=== PATIENT | female | born 2000 | race Two or more races ===

== ENCOUNTER → 2020-03-21 07:55 | Outpatient (BNVA) | payer OTHER, SELFPAY | PROVIDERS: Visit Provider Advanced Practice Midwife | DX: Z34.80 Encounter for supervision of other normal pregnancy, unspecified trimester (principal) | CPT/HCPCS: 81025; 99212 ==

== ENCOUNTER 2020-04-11 11:09 | Emergency (ER) | payer OTHER, SELFPAY ==
[2020-04-11 11:17] VITALS: BP 133/78; PULSE 100; RESP 18; TEMP 36.9; O2SAT 98; BMI 18.8
--- NOTE | 2020-04-11 12:23 | ED.ABDPAIN ---
HPI - Abdominal Pain General Chief Complaint: Abdominal Pain <Lon Paniagua NP - Last Filed: 04/13/20 08:12> Stated Complaint: rt side abd pain, <Lon Paniagua NP - Last Filed: 04/13/20 08:12> Time Seen by Provider: 04/11/20 12:16 <Lon Paniagua NP - Last Filed: 04/13/20 08:12> Source: patient <Lon Paniagua NP - Last Filed: 04/13/20 08:12> Mode of arrival: ambulatory <Lon Paniagua NP - Last Filed: 04/13/20 08:12> Limitations: no limitations <Lon Paniagua NP - Last Filed: 04/13/20 08:12> History of Present Illness HPI narrative: This is a 19-year-old female who is a A1 who is currently about 7 weeks gestation she has a history of HSV type 2 who is being followed by her OBGYN team here presents with complaint of right lower pelvic pain for past several days. Pain is described as cramping like discomfort in the pelvic area and states she was to make sure everything is okay with the new as she has a history of miscarriage and she is worried about that. She denies any vaginal discharge or rash, bleeding, nausea vomiting or diarrhea. <Lon Paniagua NP - Last Filed: 04/13/20 08:12> MD elicited complaint: abdominal pain <Lon Paniagua NP - Last Filed: 04/13/20 08:12> Pertinent past history: none <Lon Paniagua NP - Last Filed: 04/13/20 08:12> Onset (ago): day(s) <Lon Paniagua NP - Last Filed: 04/13/20 08:12> Pain Consistency: intermittent <Lon Paniagua NP - Last Filed: 04/13/20 08:12> Location: pelvis <Lon Paniagua NP - Last Filed: 04/13/20 08:12> Severity: mild <Lon Paniagua NP - Last Filed: 04/13/20 08:12> Quality: cramping <Lon Paniagua NP - Last Filed: 04/13/20 08:12> Radiation: none <Lon Paniagua NP - Last Filed: 04/13/20 08:12> Relieving factors: nothing <Lon Paniagua NP - Last Filed: 04/13/20 08:12> Associated symptoms: denies other symptoms <Lon Paniagua NP - Last Filed: 04/13/20 08:12> Related Data Patient : Yes <ARIEL Beckwith Last Filed: 04/13/20 08:12> Home Medications: Previous Rx's Medication Instructions Recorded valacyclovir 500 mg tablet 1,000 mg PO BID #60 tab 02/07/20 vits no.130-ferrous fum 1 tab PO DAILY #30 tab 03/21/20 27 mg iron-folic acid 800 mcg tablet <Lon Paniagua NP - Last Filed: 04/13/20 08:12> Allergies/Adverse Reactions: Allergies Allergy/AdvReac Type Severity Reaction Status Date / Time merced [MERCED] Allergy Unknown ANGIOEDEMA Verified 04/18/20 10:14 pollen extracts [POLLEN] Allergy Unknown ITCHY EYES Verified 04/18/20 10:14 SEAFOOD Allergy Unknown ANAPHYLAXIS Uncoded 04/18/20 10:14 <Lon Paniagua NP - Last Filed: 04/13/20 08:12> Review of Systems Review of Systems Constitutional: No Weight loss, No Fever, No Chills, No Night Sweats, No Fatigue, No Malaise ENT/Mouth: No Hearing loss, No Ear Pain, No Nasal Congestion, No Sinus Pain, No Hoarseness, No sore throat, No Rhinorrhea, No Swallowing Difficulty Eyes: No Eye Pain, No Swelling, No Redness, No Foreign Body, No Discharge, No Vision Changes Cardiovascular: No Chest Pain, No SOB, No Dyspnea on Exertion, No Orthopnea, No Edema, No Palpitations Respiratory: No Cough, No Sputum, No Wheezing, No Smoke Exposure, No Dyspnea Gastrointestinal: No Nausea, No Vomiting, No Diarrhea, No Constipation, + abdominal Pain as noted in HPI , No Hematochezia, No Melena Genitourinary: no irregular bleeding, No Dysuria, No Urinary Frequency, No Hematuria, No Urinary Incontinence, No Urgency, No Flank Pain, No Urinary Flow Changes, No Hesitancy, states no concern for STI Musculoskeletal: No joint pain, No Myalgias, No Joint Swelling Skin: No Skin Lesions, No rash Neuro: No Weakness, No Numbness, No Paresthesias, No Loss of Consciousness, No Dizziness, No Headache Psych: No Social Issues Heme/Lymph: No Bruising, No Bleeding,No Lymphadenopathy Endocrine: No Polyuria, No Polydipsia, No Temperature Intolerance <Lon Paniagua NP - Last Filed: 04/13/20 08:12> Yes all other systems are reviewed and are negative <Lon Paniagua NP - Last Filed: 04/13/20 08:12> Physical Exam Vital Signs: Vital Signs: Last Vital Signs Temp 98.9 F 04/11/20 14:16 Pulse 87 04/11/20 14:16 Resp 16 04/11/20 14:16 BP 119/66 04/11/20 14:16 Pulse Ox 100 04/11/20 14:16 Body Mass Index 18.8 Reviewed <Lon Paniagua NP - Last Filed: 04/13/20 08:12> Vital Signs: Last Vital Signs Temp 98.9 F 04/11/20 14:16 Pulse 87 04/11/20 14:16 Resp 16 04/11/20 14:16 BP 119/66 04/11/20 14:16 Pulse Ox 100 04/11/20 14:16 Body Mass Index 18.8 <Chele Cates MD - Last Filed: 04/20/20 00:11> Const: General: cooperative and healthy appearing; No acute distress or intoxicated appearing <Lon Paniagua NP - Last Filed: 04/13/20 08:12> Nutritional Appearance: average body habitus <Lon Paniagua NP - Last Filed: 04/13/20 08:12> Orientation/consciousness: patient oriented x3 <Lon Paniagua NP - Last Filed: 04/13/20 08:12> HENMT: Head: Yes normal to inspection <Lon Paniagua NP - Last Filed: 04/13/20 08:12> Ears: hearing grossly normal bilaterally <Lon Paniagua NP - Last Filed: 04/13/20 08:12> Eyes: General: appearance normal, both eyes and all related structures <Lon Paniagua NP - Last Filed: 04/13/20 08:12> Visual Holbrook: normal visual holbrook by confrontation <Lon Paniagua NP - Last Filed: 04/13/20 08:12> Neck: Neck: Yes normal visual inspection, No positive Brudzinski's sign, No positive Kernig's sign and No tender <[facility] Paniagua, - Last Filed: 04/13/20 08:12> Thyroid: Thyroid normal <[facility] Paniagua, [facility] Last Filed: 04/13/20 08:12> Chest: Chest palpation & inspection: normal inspection of the chest <[facility] Arcelia - Last Filed: 04/13/20 08:12> Resp: Effort & Inspection: normal respiratory effort <[facility] Arcelia [facility] Last Filed: 04/13/20 08:12> Auscultation: clear to auscultation bilaterally <[facility] Arcelia - Last Filed: 04/13/20 08:12> Cardio: Jugular venous distension: no JVD <[facility] Arcelia [facility] Last Filed: 04/13/20 08:12> Rhythm: regular rhythm <[facility] Arcelia [facility] Last Filed: 04/13/20 08:12> Heart sounds: S1 normal heart sound present and S2 normal heart sound present <[facility] Arcelia - Last Filed: 04/13/20 08:12> GI: Inspection: Yes normal to inspection <[facility] Arcelia [facility] Last Filed: 04/13/20 08:12> Percussion: Yes normal to percussion <[facility] Arcelia - Last Filed: 04/13/20 08:12> Auscultation: normal bowel sounds <[facility] Arcelia - Last Filed: 04/13/20 08:12> : General: Yes no CVA tenderness <[facility] Arcelia - Last Filed: 04/13/20 08:12> Back/Spine/Pelvis: Back: no CVA tenderness <[facility] Arcelia - Last Filed: 04/13/20 08:12> Skin: General skin exam: no rashes or lesions noted <[facility] - Last Filed: 04/13/20 08:12> Neuro: General: patient oriented x3 <[facility] [place] - Last Filed: 04/13/20 08:12> Extrem: General: Yes normal to inspection <Lonkishor Paniagua NP - Last Filed: 04/13/20 08:12> Course Course Course Narrative: Resting comfortably here no complaints of pain or discomfort. HCG quant and ultrasound in correlation. Rh positive. No vaginal bleeding. She has an appointment coming up with her OBGYN team tomorrow. Educated on early discomfort, threatened miscarriage, need for follow-up, return instructions/precautions clear provided she verbalized understanding. Feels comfortable for discharge. Stable for discharge. <Lon Paniagua NP - Last Filed: 04/13/20 08:12> I have reviewed the chart <Chele Cates MD - Last Filed: 04/20/20 00:11> MDM - Abdominal Pain Differential Diagnosis Differential diagnosis: Likely abdominal pain and ovarian cyst; Unlikely aortic dissection, acute appendicitis, bowel perforation, calculus of kidney, constipation, diverticulitis, endometriosis, gastroenteritis, gastritis, mesenteric ischemia, pancreatitis, peptic ulcer disease, renal colic and small bowel obstruction <Lon Paniagua NP - Last Filed: 04/13/20 08:12> Differential diagnosis narrative:: Also considered ectopic . <Lon Paniagua NP - Last Filed: 04/13/20 08:12> Medical Records Attestation: I reviewed the patient's medical records. <Lon Paniagua NP - Last Filed: 04/13/20 08:12> Lab Data Attestation: I reviewed the patient's lab results. <Lon Paniagua NP - Last Filed: 04/13/20 08:12> Result diagrams: : 04/11/20 12:35 04/11/20 12:35 <Lon Paniagua NP - Last Filed: 04/13/20 08:12> Labs: Lab Results 04/11/20 04/11/20 04/11/20 Range/Units 12:31 12:35 12:35 WBC (4.8-10.8) X10*3/uL RBC (4.20-5.50) X10*6/uL Hgb (12.0-16.0) g/dl Hct (37-47) % MCV (80-98) fL MCH (27.0-33.0) pg MCHC (31.0-35.0) g/dl RDW (11.0-16.0) % Plt Count (160-400) X10*3/uL MPV (9.4-12.3) fL Immature Gran % (Auto) (0.0-0.4) % Neut % (Auto) (45-73) % Lymph % (Auto) (20-40) % [place] % (Auto) (2-11) % Eos % (Auto) (0-4) % Baso % (Auto) (0-2) % Lymph # (Auto) (1.2-4.9) X10*3/uL [place] # (Auto) (0.1-1.2) X10*3/uL Eos # (Auto) (0.0-0.4) X10*3/uL Baso # (Auto) (0.0-0.2) X10*3/uL Abs Immat Gran (auto) (0.00-0.03) X10*3/uL Absolute Neuts (auto) (2.0-8.3) X10*3/uL Absolute Nucleated RBC (0.0-0.012) X10*3/uL Nucleated RBC % (auto) (0.0-0.2) /100WBC Sodium 137 (135-145) mmol/L Potassium 3.8 (3.3-5.1) mmol/l Chloride 105 (96-108) mmol/L Carbon Dioxide 23 (22-29) mmol/L Anion Gap 13 (12-20) BUN 7 L (9-16) mg/dL Creatinine 0.70 (0.5-1.4) mg/dL Estim Creat Clear Calc 101.7 Estimated GFR > 60 Random Glucose 85 (60-115) mg/dL Calcium 9.3 (8.4-10.2) mg/dL Total Bilirubin 0.4 (0.0-1.0) mg/dL AST 13 (5-31) U/L ALT 9 (0-31) U/L Alkaline Phosphatase 43 (39-117) U/L Total Protein 7.0 (6.5-8.0) g/dL Albumin 4.6 (3.5-5.0) g/dL Beta HCG, Quant 869242 mIU/mL Urine Color YELLOW Urine Appearance HAZY Urine pH 7.0 (5.0-8.0) Ur Specific [place] 1.025 (1.005-1.025) Urine Protein NEG (NEG-TRACE) MG/DL Urine Glucose (UA) NEG (NEG) MG/DL Urine Ketones 5 (NEG) MG/DL Urine Blood NEG (NEG) Urine Nitrite NEG (NEG) Ur Leukocyte Esterase NEG (NEG) Urine RBC 0 (0) /HPF Urine WBC 0 (0-4) /HPF Ur Squamous Epith Cells TRACE /LPF Calcium Carbonate Cryst TRACE /LPF Urine Bacteria NONE /LPF Urine Mucus TRACE /LPF Urine Test POSITIVE H (NEGATIVE) Blood Type A Positive 04/11/20 Range/Units 12:35 WBC 8.5 (4.8-10.8) X10*3/uL RBC 4.43 (4.20-5.50) X10*6/uL Hgb 12.4 (12.0-16.0) g/dl Hct 38.4 (37-47) % MCV 86.7 (80-98) fL MCH 28.0 (27.0-33.0) pg MCHC 32.3 (31.0-35.0) g/dl RDW 12.1 (11.0-16.0) % Plt Count 231 (160-400) X10*3/uL MPV 10.0 (9.4-12.3) fL Immature Gran % (Auto) 0.1 (0.0-0.4) % Neut % (Auto) 73.8 H (45-73) % Lymph % (Auto) 18.8 L (20-40) % [place] % (Auto) 6.6 (2-11) % Eos % (Auto) 0.6 (0-4) % Baso % (Auto) 0.1 (0-2) % Lymph # (Auto) 1.6 (1.2-4.9) X10*3/uL [place] # (Auto) 0.6 (0.1-1.2) X10*3/uL Eos # (Auto) 0.1 (0.0-0.4) X10*3/uL Baso # (Auto) 0.0 (0.0-0.2) X10*3/uL Abs Immat Gran (auto) 0.01 (0.00-0.03) X10*3/uL Absolute Neuts (auto) 6.2 (2.0-8.3) X10*3/uL Absolute Nucleated RBC 0.000 (0.0-0.012) X10*3/uL Nucleated RBC % (auto) 0.0 (0.0-0.2) /100WBC Sodium (135-145) mmol/L Potassium (3.3-5.1) mmol/l Chloride (96-108) mmol/L Carbon Dioxide (22-29) mmol/L Anion Gap (12-20) BUN (9-16) mg/dL Creatinine (0.5-1.4) mg/dL Estim Creat Clear Calc Estimated GFR Random Glucose (60-115) mg/dL Calcium (8.4-10.2) mg/dL Total Bilirubin (0.0-1.0) mg/dL AST (5-31) U/L ALT (0-31) U/L Alkaline Phosphatase (39-117) U/L Total Protein (6.5-8.0) g/dL Albumin (3.5-5.0) g/dL Beta HCG, Quant mIU/mL Urine Color Urine Appearance Urine pH (5.0-8.0) Ur Specific [place] (1.005-1.025) Urine Protein (NEG-TRACE) MG/DL Urine Glucose (UA) (NEG) MG/DL Urine Ketones (NEG) MG/DL Urine Blood (NEG) Urine Nitrite (NEG) Ur Leukocyte Esterase (NEG) Urine RBC (0) /HPF Urine WBC (0-4) /HPF Ur Squamous Epith Cells /LPF Calcium Carbonate Cryst /LPF Urine Bacteria /LPF Urine Mucus /LPF Urine Test (NEGATIVE) Blood Type <Lon Paniagua NP - Last Filed: 04/13/20 08:12> Lab Results 04/11/20 04/11/20 04/11/20 Range/Units 12:31 12:35 12:35 WBC (4.8-10.8) X10*3/uL RBC (4.20-5.50) X10*6/uL Hgb (12.0-16.0) g/dl Hct (37-47) % MCV (80-98) fL MCH (27.0-33.0) pg MCHC (31.0-35.0) g/dl RDW (11.0-16.0) % Plt Count (160-400) X10*3/uL MPV (9.4-12.3) fL Immature Gran % (Auto) (0.0-0.4) % Neut % (Auto) (45-73) % Lymph % (Auto) (20-40) % [place] % (Auto) (2-11) % Eos % (Auto) (0-4) % Baso % (Auto) (0-2) % Lymph # (Auto) (1.2-4.9) X10*3/uL [place] # (Auto) (0.1-1.2) X10*3/uL Eos # (Auto) (0.0-0.4) X10*3/uL Baso # (Auto) (0.0-0.2) X10*3/uL Abs Immat Gran (auto) (0.00-0.03) X10*3/uL Absolute Neuts (auto) (2.0-8.3) X10*3/uL Absolute Nucleated RBC (0.0-0.012) X10*3/uL Nucleated RBC % (auto) (0.0-0.2) /100WBC Sodium 137 (135-145) mmol/L Potassium 3.8 (3.3-5.1) mmol/l Chloride 105 (96-108) mmol/L Carbon Dioxide 23 (22-29) mmol/L Anion Gap 13 (12-20) BUN 7 L (9-16) mg/dL Creatinine 0.70 (0.5-1.4) mg/dL Estim Creat Clear Calc 101.7 Estimated GFR > 60 Random Glucose 85 (60-115) mg/dL Calcium 9.3 (8.4-10.2) mg/dL Total Bilirubin 0.4 (0.0-1.0) mg/dL AST 13 (5-31) U/L ALT 9 (0-31) U/L Alkaline Phosphatase 43 (39-117) U/L Total Protein 7.0 (6.5-8.0) g/dL Albumin 4.6 (3.5-5.0) g/dL Beta HCG, Quant 554974 mIU/mL Urine Color YELLOW Urine Appearance HAZY Urine pH 7.0 (5.0-8.0) Ur Specific [place] 1.025 (1.005-1.025) Urine Protein NEG (NEG-TRACE) MG/DL Urine Glucose (UA) NEG (NEG) MG/DL Urine Ketones 5 (NEG) MG/DL Urine Blood NEG (NEG) Urine Nitrite NEG (NEG) Ur Leukocyte Esterase NEG (NEG) Urine RBC 0 (0) /HPF Urine WBC 0 (0-4) /HPF Ur Squamous Epith Cells TRACE /LPF Calcium Carbonate Cryst TRACE /LPF Urine Bacteria NONE /LPF Urine Mucus TRACE /LPF Urine Test POSITIVE H (NEGATIVE) Blood Type A Positive 04/11/20 Range/Units 12:35 WBC 8.5 (4.8-10.8) X10*3/uL RBC 4.43 (4.20-5.50) X10*6/uL Hgb 12.4 (12.0-16.0) g/dl Hct 38.4 (37-47) % MCV 86.7 (80-98) fL MCH 28.0 (27.0-33.0) pg MCHC 32.3 (31.0-35.0) g/dl RDW 12.1 (11.0-16.0) % Plt Count 231 (160-400) X10*3/uL MPV 10.0 (9.4-12.3) fL Immature Gran % (Auto) 0.1 (0.0-0.4) % Neut % (Auto) 73.8 H (45-73) % Lymph % (Auto) 18.8 L (20-40) % [place] % (Auto) 6.6 (2-11) % Eos % (Auto) 0.6 (0-4) % Baso % (Auto) 0.1 (0-2) % Lymph # (Auto) 1.6 (1.2-4.9) X10*3/uL [place] # (Auto) 0.6 (0.1-1.2) X10*3/uL Eos # (Auto) 0.1 (0.0-0.4) X10*3/uL Baso # (Auto) 0.0 (0.0-0.2) X10*3/uL Abs Immat Gran (auto) 0.01 (0.00-0.03) X10*3/uL Absolute Neuts (auto) 6.2 (2.0-8.3) X10*3/uL Absolute Nucleated RBC 0.000 (0.0-0.012) X10*3/uL Nucleated RBC % (auto) 0.0 (0.0-0.2) /100WBC Sodium (135-145) mmol/L Potassium (3.3-5.1) mmol/l Chloride (96-108) mmol/L Carbon Dioxide (22-29) mmol/L Anion Gap (12-20) BUN (9-16) mg/dL Creatinine (0.5-1.4) mg/dL Estim Creat Clear Calc Estimated GFR Random Glucose (60-115) mg/dL Calcium (8.4-10.2) mg/dL Total Bilirubin (0.0-1.0) mg/dL AST (5-31) U/L ALT (0-31) U/L Alkaline Phosphatase (39-117) U/L Total Protein (6.5-8.0) g/dL Albumin (3.5-5.0) g/dL Beta HCG, Quant mIU/mL Urine Color Urine Appearance Urine pH (5.0-8.0) Ur Specific [place] (1.005-1.025) Urine Protein (NEG-TRACE) MG/DL Urine Glucose (UA) (NEG) MG/DL Urine Ketones (NEG) MG/DL Urine Blood (NEG) Urine Nitrite (NEG) Ur Leukocyte Esterase (NEG) Urine RBC (0) /HPF Urine WBC (0-4) /HPF Ur Squamous Epith Cells /LPF Calcium Carbonate Cryst /LPF Urine Bacteria /LPF Urine Mucus /LPF Urine Test (NEGATIVE) Blood Type <Chele Cates MD - Last Filed: 04/20/20 00:11> Imaging Data ultrasound: Radiologist's impression: [address] [address] Ultrasound Report Signed Patient: Colleen Mart [facility]#: [id number] : 2000Acct:[id number] Age/Sex: 19 / FADM Date: 04/11/20 Loc: .ED Attending Dr: Ordering Physician: Lon Paniagua [employer] Date of Service: 04/11/20 Procedure(s): US OB <= 14 weeks fetus Accession Number(s): [id number] cc: Lon Paniagua NP~ EXAMINATION: ULTRASOUND OB LESS THAN 14 WEEKS CLINICAL INFORMATION: Right pelvic pain. Positive . COMPARISON: None TECHNIQUE: Routine transabdominal ultrasound the pelvis is performed. FINDINGS: There is intrauterine solitary just sac and a pole visualized. Also visualized is a yolk sac and a heart rate of 1 56 bpm. The crown-rump length measures 1.27 cm corresponding to 7 weeks 4 days and [facility] of 11/24/2020. The right ovary measures 3.3 x 1.9 x 2.0 cm and appears unremarkable. Left ovary measures 2.8 x 1.4 x 2.1 cm and appears unremarkable. US/US OB <= 14 weeks fetus IMPRESSION: Single live intrauterine fetus within ultrasound gestational age of 7 weeks 4 days. Dictated By:SERGE REAL MD Signed By:<Electronically signed by SERGE REAL MD in OV>04/11/20 1335 DD/ 1223 TD/TT: Icing Maker: MSM <Lon Paniagua NP - Last Filed: 04/13/20 08:12> Discharge Plan Discharge Clinical Impression: <Lon Paniagua NP - Last Filed: 04/13/20 08:12> Patient Disposition: Home, Self-Care <Lon Paniagua NP - Last Filed: 04/13/20 08:12> Instructions: Abdominal Pain in (ED) <Lon Paniagua NP - Last Filed: 04/13/20 08:12> Additional Instructions: Stable Your ultrasound shows single at 7 weeks 4 days as expected Return if any concerns or worsening symptoms otherwise follow-up with your OBGYN team as scheduled tomorrow Thank you <Lon Paniagua NP - Last Filed: 04/13/20 08:12> Prescriptions: No Action Vitamin 27 mg iron- 800 mcg tablet 1 tab PO DAILY Qty: 30 RF: 12 valacyclovir [Valtrex] 500 mg tablet 1,000 mg PO BID Qty: 60 RF: 1 <Lon Paniagua NP - Last Filed: 04/13/20 08:12> Referrals: Magnus Serra MD [Physician] - 1 day <Lon Paniagua NP - Last Filed: 04/13/20 08:12> Interventions: ED Discharge Assessment Last Done: 04/11/20 14:40 <Lon Paniagua NP - Last Filed: 04/13/20 08:12> Discharge Date/Time: 04/11/20 14:40 <Lon Paniagua NP - Last Filed: 04/13/20 08:12> [facility] Past Medical History Medical History: Medical History History of asthma HSV-2 infection <Lon Paniagua NP - Last Filed: 04/13/20 08:12> Family History Family History: Family History (Updated 04/18/20 @ 11:07 by Darling De Los Santos LPN) Maternal Grandmother CVD (cardiovascular disease) Maternal Grandfather History of heart attack Paternal Grandmother No problems noted. Maternal Uncle History of colon cancer <Lon Paniagua NP - Last Filed: 04/13/20 08:12> Social History Social History: Social History (Updated 04/18/20 @ 10:18 by Darling De Los Santos LPN) Household Members: Significant Other and Children Alcohol intake: never Smoking Status: Never smoker Sexual orientation: Straight/Heterosexual Gender identity: female <Lon Paniagua NP - Last Filed: 04/13/20 08:12>
[2020-04-11 12:41] LABS: MANUAL DIFF FLAG NO
[2020-04-11 12:43] LABS: Basophils Percent Auto 0.1 % (0-2); Eosinophils Absolute Auto 0.1 X10*3/uL (0.0-0.4); Eosinophils Percent Auto 0.6 % (0-4); Hematocrit 38.4 % (37-47); Hemoglobin 12.4 g/dl (12.0-16.0); Imm Gran Abs Auto 0.01 X10*3/uL (0.00-0.03); Imm Gran Pct Auto 0.1 % (0.0-0.4); Lymphocytes Absolute Auto 1.6 X10*3/uL (1.2-4.9); Lymphocytes Percent Auto 18.8 % (20-40); Mean Corpuscular HGB Conc 32.3 g/dl (31.0-35.0); Mean Corpuscular Volume 86.7 fL (80-98); Monocytes Absolute Auto 0.6 X10*3/uL (0.1-1.2); Monocytes Percent Auto 6.6 % (2-11); Neutrophils Absolute Auto 6.2 X10*3/uL (2.0-8.3); Neutrophils Percent Auto 73.8 % (45-73); Platelet Count 231 X10*3/uL (160-400); Red Blood Count 4.43 X10*6/uL (4.20-5.50); Red Cell Distribution Width 12.1 % (11.0-16.0); White Blood Count 8.5 X10*3/uL (4.8-10.8)
[2020-04-11 12:45] LABS: Glucose Urine UA NEG (NEG); Leukocyte Esterase Urine NEG (NEG); Nitrite Urine NEG (NEG); Specific Gravity - Urine 1.025 (1.005-1.025); Urine Blood NEG (NEG); Urine Ketones 5 MG/DL (NEG); Urine Protein NEG (NEG-TRACE)
[2020-04-11 12:48] LABS: Appearance Urine HAZY; Color Urine YELLOW
[2020-04-11 12:49] LABS: UPreg QC Valid YES; Urine Pregnancy POSITIVE (NEGATIVE)
[2020-04-11 13:05] LABS: Calcium Carbonate Crystals Ur TRACE /LPF; Mucus Urine TRACE /LPF; RBC Urine 0 /HPF (0); Squamous Epithelial Cell Urine TRACE /LPF; WBC Urine 0 /HPF (0-4)
[2020-04-11 13:13] LABS: Alanine Aminotransferase 9 U/L (0-31); Albumin Level 4.6 g/dL (3.5-5.0); Alkaline Phosphatase 43 U/L (39-117); Anion Gap 13 (12-20); Aspartate Amino Transferase 13 U/L (5-31); Bilirubin Total 0.4 mg/dL (0.0-1.0); Blood Urea Nitrogen 7 mg/dL (9-16); Calcium 9.3 mg/dL (8.4-10.2); Carbon Dioxide 23 mmol/L (22-29); Chloride 105 mmol/L (96-108); Creatinine Clr Calc Pharmacy 101.7; Estimated Glomerular Filt Rate > 60; Glucose Random 85 mg/dL (60-115); Potassium 3.8 mmol/l (3.3-5.1); Sodium 137 mmol/L (135-145)
[2020-04-11 14:16] VITALS: BP 119/66; PULSE 87; RESP 16; TEMP 37.2; O2SAT 100
== END 2020-04-11 14:40 | disposition home or self-care (01) ==
PROVIDERS: Nurse Practitioner Primary Care; Emergency Provider Emergency Medicine; PCP Pediatrics
DX: O26.891 Other specified pregnancy related conditions, first trimester (principal); R10.9 Unspecified abdominal pain; Z3A.01 Less than 8 weeks gestation of pregnancy; O26.41 Herpes gestationis, first trimester; O26.21 Pregnancy care for patient with recurrent pregnancy loss, first trimester
CPT/HCPCS: 36415; 76801; 80053; 81001; 81025; 84702; 85025; 86900; 86901; 99284

== ENCOUNTER → 2020-04-18 10:12 | Outpatient (BNVA) | payer OTHER, SELFPAY | PROVIDERS: PCP Pediatrics; Visit Provider Advanced Practice Midwife | CPT/HCPCS: 99212 ==

== ENCOUNTER 2020-05-16 08:06 | Outpatient (REF) | payer OTHER, SELFPAY ==
[2020-05-16 11:38] LABS: Syphilis Screen Nonreactive (Nonreactive)
[2020-05-17 08:04] LABS: HBsAGNum1 0.24 S/CO (0.00-0.99); HIV AB/AG Nonreactive (Nonreactive); HIV Num 1 0.07 S/CO (0.00-0.99); Hepatitis B Surface Antigen Negative (Negative); ~Hepatitis C Antibody Nonreactive (Nonreactive)
[2020-05-17 08:32] LABS: Rubella IgG Antibody 4.52 Index; Varicella IgG Antibody >4000.00 index
[2020-05-17 09:38] LABS: BV Int Neg Control Negative (Negative); BV Int Pos Control Positive (Positive)
[2020-05-18 00:16] LABS: C. trachomatis RNA TMA NOT DETECTED (NOT DETECTED); N. gonorrhoeae RNA TMA NOT DETECTED (NOT DETECTED)
== END 2020-05-16 08:07 | disposition home or self-care (01) ==
LOC: HO.LAB 08:06
PROVIDERS: PCP Pediatrics; Visit Provider Advanced Practice Midwife
DX: O26.891 Other specified pregnancy related conditions, first trimester (principal); N89.8 Other specified noninflammatory disorders of vagina; Z3A.12 12 weeks gestation of pregnancy
CPT/HCPCS: 36415; 81003; 86762; 86780; 86787; 86803; 86850; 86900; 86901; 87340; 87389; 87480; 87491; 87510; 87591; 87660; 99212

== ENCOUNTER 2020-05-18 12:58 | Outpatient (REF) | payer OTHER, SELFPAY ==
--- NOTE | ~2020-05-18 | US_ITS ---
EXAMINATION: OBSTETRICAL ULTRASOUND, FIRST TRIMESTER HISTORY: 19-year-old at 12.6 weeks of gestation NT screening COMPARISON: 04/11/2020 TECHNIQUE: Real time transabdominal imaging with color and M-mode Doppler. FINDINGS: A single, live IUP CRL of 61 mm c/w 12.4wks is noted. Heart Rate: 156 beats per minute. Normal yolk sac seen. NT was 1.6.mm. NB Present The embryo appears sonographically wnl for this GA. Both maternal ovaries are seen and appear normal. GESTATIONAL AGE: 1. Established GA: 12.6 wks 2. GA from [facility]: 12.4 wks ESTIMATED DATE OF DELIVERY: 1. Established [facility]: 11/24/2020 2. [facility] from [facility]: 11/26/2020 US/US OB 1T nuc measure IMPRESSION: 1. A single live IUP 2. Size equals dates 3. NT of 1.6 mm MFM Consultation: I reviewed the ultrasound findings along with significance of NT measurement. The NT of less than 3mm is generally reassuring. However, the sensitivity for T21 detection is only 60%. I reviewed the availability of serum aneuploidy screening which includes cell-free DNA and placental protein based tests. I discussed the sensitivity, false-positive rate, and other limitations associated with each test. I also reviewed the availability of invasive diagnostic tests that are associated small but definite risk of miscarriage. We also reviewed the differences between screening tests and diagnostic tests. After our discussion, she opted for the First trimester screening that is based on cell-free DNA or non-invasive testing (NIPT). She has a 1-year-old child. That was uncomplicated. A follow up at 18 weeks for survey has been scheduled. Thank you very much for this referral. Majority of this visit was spent reviewing her care and counselling her in face to face time: Time spent 30 min.
[2020-05-18 14:55] LABS: Amphetamine Screen Urine Not Detected (Not Detect); Barbiturates, Urine Not Detected (Not Detect); Benzodiazepines Screen Urine Not Detected (Not Detect); Cannabinoid Screen Urine Not Detected (Not Detect); Cocaine Screen Urine Not Detected (Not Detect); Opiate Screen Urine Not Detected (Not Detect); Phencyclidine Screen Urine Not Detected (Not Detect)
== END 2020-05-18 12:59 | disposition home or self-care (01) ==
LOC: HO.US 12:58
PROVIDERS: Visit Provider Advanced Practice Midwife
DX: Z34.91 Encounter for supervision of normal pregnancy, unspecified, first trimester (principal); Z36.82 Encounter for antenatal screening for nuchal translucency
CPT/HCPCS: 76813; 80307; 87086

== ENCOUNTER → 2020-06-13 11:15 | Outpatient (BNVA) | payer OTHER, SELFPAY | PROVIDERS: PCP Pediatrics; Visit Provider Obstetrics & Gynecology | CPT/HCPCS: 99212 ==

== ENCOUNTER 2020-06-29 12:53 | Outpatient (REF) | payer OTHER, SELFPAY ==
--- NOTE | ~2020-06-29 | US_ITS ---
EXAMINATION: US OBSTETRICAL CLINICAL INFORMATION: 19-year-old at 18.6 weeks of GA Screening for anomalies COMPARISON: 05/18/2020 TECHNIQUE: Real-time transabdominal ultrasound was performed using C1-5 megahertz transducer. FINDINGS: A single, active, fetus is seen in vertex presentation. The placenta is anterior without previa, and the amniotic fluid volume is wnl. MEASUREMENTS: 1. Biparietal Diameter: 4.4 cm; 19.3 wks 2. Occipital Frontal Diameter: 5.8 cm 3. Head Circumference: 16.4 cm; 19.1 wks 4. Abdominal Circumference: 13.2 cm; 18.5 wks 5. Femur Length: 2.8 cm; 18.5 wks 6. Humerus Length: 2.8 cm; 18.6 wks 7. Tibia Length: 2.5 cm; 18.6 wks 8. Ulna Length: 2.5 cm; 19.0 wks 9. Lateral ventricle: 0.7 cm 10. Cerebellum: 1.9 cm; 19.3 wks 11. Cisterna Magna: 0.5 cm 12. Nuchal Fold: 4.0 mm 13. Heart Rate: 140 beats per minute Rt ovary: normal Lt ovary: normal Cervical length 4.0 cm on T/A. GESTATIONAL AGE: 1. Established GA: 18.6 wks 2. GA [facility]: 19.0 wks ESTIMATED DATE OF DELIVERY: 1. Established [facility]: 11/24/2020 2. [facility]: 11/23/2020 ANATOMY: The visualized anatomy includes but not limited to: 1. Cranium: Normal 2. Intracranial anatomy: cavum septum pellucidi, lateral ventricles, choroid plexus, cerebellum, posterior fossa, third and fourth ventricles. 3. face: orbits, lip/palate, profile, nasal bone 4. Heart: four-chamber view of the heart, ventricular septum, foramen ovale, pulmonary vein, left and right outflow tracts, three-vessel view, 3 vessel trachea view, aortic and ductal arches, situs.. 5. Diaphragm: Normal 6. Abdominal wall: Normal 7. Cord Insertion: Normal 8. Spine: Cervical, thoracic, lumbar, sacral. 9. Stomach: Normal size and shape 10. Right Kidney: Normal 11. Left Kidney: Normal 12. 3 vessel cord: Normal 13. Upper extremity: Open hands, fifth digit. 14. Lower extremity: Tibia, fibula, bilateral feet. 15. Bladder: Normal 16. Genitalia: Male, patient aware US/US OB /maternal detail IMPRESSION: 1. Single, living, intrauterine with appropriate biometry. 2. Normal survey DISCUSSION: I reviewed today's ultrasound findings. We discussed the limitations of ultrasound in diagnosing aneuploidy and other congenital abnormalities. I reviewed the differences between screening test and diagnostic test. Amniocentesis was discussed and declined. She was informed that the baseline incidence of congenital abnormalities is approximately 3-5%. Not all these conditions are diagnosable in utero. RECOMMENDATIONS: 1. f/u PRN Thank you for allowing me to participate in her care. Total time 20 minutes. The time spent was devoted to counseling the patient about the disease and diagnosis, coordinating care including reviewing her records, pertinent lab data and studies, as well as discussing diagnostic evaluation and workup, plan therapeutic interventions and future disposition of care. This includes any additional research needed to obtain further information in formulating the plan of care of this patient. This note was generated with a voice recognition program. Please excuse any errors which may have been overlooked during my review of this note. Sometimes these errors may affect the content or meaning of a given sentence.
== END 2020-06-29 12:54 | disposition home or self-care (01) ==
LOC: HO.US 12:53
PROVIDERS: Visit Provider Obstetrics & Gynecology
DX: Z34.82 Encounter for supervision of other normal pregnancy, second trimester (principal); Z36.3 Encounter for antenatal screening for malformations
CPT/HCPCS: 76811

== ENCOUNTER → 2020-07-11 14:10 | Outpatient (BNVA) | payer OTHER, SELFPAY | PROVIDERS: PCP Pediatrics; Visit Provider Obstetrics & Gynecology | DX: Z34.92 Encounter for supervision of normal pregnancy, unspecified, second trimester (principal); Z3A.20 20 weeks gestation of pregnancy | CPT/HCPCS: 99212 ==

== ENCOUNTER → 2020-08-08 13:35 | Outpatient (BNVA) | payer OTHER, SELFPAY | PROVIDERS: Visit Provider Advanced Practice Midwife | DX: Z34.92 Encounter for supervision of normal pregnancy, unspecified, second trimester (principal); Z3A.24 24 weeks gestation of pregnancy | CPT/HCPCS: 81003; 99212 ==

== ENCOUNTER → 2020-09-05 14:48 | Outpatient (BNVA) | payer OTHER, SELFPAY | PROVIDERS: Visit Provider Advanced Practice Midwife | DX: Z34.93 Encounter for supervision of normal pregnancy, unspecified, third trimester (principal); Z3A.28 28 weeks gestation of pregnancy | CPT/HCPCS: 81003; 99212 ==

== ENCOUNTER 2020-09-17 15:03 | Outpatient (REF) | payer OTHER, SELFPAY ==
[2020-09-17 17:57] LABS: Hematocrit 33.4 % (37-47); Hemoglobin 10.5 g/dl (12.0-16.0); Mean Corpuscular HGB Conc 31.4 g/dl (31.0-35.0); Mean Corpuscular Hemoglobin 27.9 pg (27.0-33.0); Mean Corpuscular Volume 88.8 fL (80-98); Mean Platelet Volume 10.6 fL (9.4-12.3); Platelet Count 222 X10*3/uL (160-400); Red Blood Count 3.76 X10*6/uL (4.20-5.50); Red Cell Distribution Width 12.8 % (11.0-16.0); White Blood Count 7.4 X10*3/uL (4.8-10.8)
[2020-09-17 18:17] LABS: Glucose 1 Hour PP 50gm Dose 116 mg/dL (60-140)
[2020-09-17 18:40] LABS: Syphilis Screen Nonreactive (Nonreactive)
== END 2020-09-17 15:04 | disposition home or self-care (01) ==
LOC: HO.LAB 15:03
PROVIDERS: PCP Pediatrics; Visit Provider Advanced Practice Midwife
DX: Z34.93 Encounter for supervision of normal pregnancy, unspecified, third trimester (principal); Z20.2 Contact with and (suspected) exposure to infections with a predominantly sexual mode of transmission
CPT/HCPCS: 36415; 85027; 86780

== ENCOUNTER → 2020-09-19 15:07 | Outpatient (BNVA) | payer OTHER, SELFPAY | PROVIDERS: Visit Provider Advanced Practice Midwife | DX: O98.513 Other viral diseases complicating pregnancy, third trimester (principal); B00.9 Herpesviral infection, unspecified; J30.1 Allergic rhinitis due to pollen; Z91.013 Allergy to seafood; Z91.018 Allergy to other foods; Z3A.30 30 weeks gestation of pregnancy | CPT/HCPCS: 81003; 99212 ==

== ENCOUNTER → 2020-10-12 11:19 | Outpatient (BNVA) | payer OTHER, SELFPAY | PROVIDERS: Visit Provider Advanced Practice Midwife | DX: Z34.93 Encounter for supervision of normal pregnancy, unspecified, third trimester (principal); Z3A.33 33 weeks gestation of pregnancy | CPT/HCPCS: 81003; 99212 ==

== ENCOUNTER 2020-10-26 08:33 | Outpatient (REF) | payer OTHER, SELFPAY ==
[2020-10-27 11:33] LABS: CT PCR NOT DETECTED (Not Detect.); NG PCR NOT DETECTED (Not Detect.)
[2020-10-27 13:36] LABS: BV Int Neg Control Negative (Negative); BV Int Pos Control Positive (Positive)
== END 2020-10-26 08:34 | disposition home or self-care (01) ==
LOC: HO.LAB 08:33
PROVIDERS: Visit Provider Advanced Practice Midwife
DX: O26.893 Other specified pregnancy related conditions, third trimester (principal); N89.8 Other specified noninflammatory disorders of vagina; O26.843 Uterine size-date discrepancy, third trimester; Z3A.35 35 weeks gestation of pregnancy
CPT/HCPCS: 87081; 87480; 87491; 87510; 87591; 87660; 99212

== ENCOUNTER 2020-10-29 12:21 | Outpatient (REF) | payer OTHER, SELFPAY ==
--- NOTE | ~2020-10-29 | US_ITS ---
EXAMINATION: US OBSTETRICAL FOLLOW UP WITH BIOPHYSICAL PROFILE CLINICAL INFORMATION: Uterine size date discrepancy COMPARISON: Previous exam most recent June 2020 TECHNIQUE: Real time transabdominal imaging with color and M-mode Doppler. POSITION: Cephalic PLACENTA: Anterior. Grade 2. AMNIOTIC FLUID INDEX: 10 cm MEASUREMENTS: The initial dating ultrasound dated provided an estimated date of delivery of 11/24/2020. This would project today to a of 36 weeks 2 days. biometric measurements are as follows: Biparietal Diameter: 9.2 cm (37 weeks 4 days) Occipital Frontal Diameter: 12 cm ( ) Head Circumference: 34 cm (39 weeks 1 day) Abdominal Circumference: 32 cm (35 weeks 6 days) Femur Length: 6.7 cm (34 weeks 4 days) The standard deviation for the above measurements is +/- 3 weeks. ESTIMATED WEIGHT: The EFW is 2823 grams +/- grams (6 lbs 4 oz +/- oz). This is at the 44th percentile. BIOPHYSICAL PROFILE: Biophysical profile is performed over 30 minutes with assessment of breathing, gross body movement, tone, and qualitative amniotic fluid volume. Each matrix is scored 0 or 2, depending if the metric is present. Maximum total score possible is 8. Motion: 2 Tone: 2 Breathin Amniotic Fluid: 2 Total score: HR: 142 bpm US/US OB follow up IMPRESSION: 1. Single intrauterine gestation in cephalic position with anterior placenta. 2. EFW: 6 lbs. 4 oz. which is 44th percentile for patient's gestational age 3. CROW: 10 cm. 4. BPP score: 8 (scale 0-8).
== END 2020-10-29 12:22 | disposition home or self-care (01) ==
LOC: HO.US 12:21
PROVIDERS: PCP Pediatrics; Visit Provider Advanced Practice Midwife
DX: O26.849 Uterine size-date discrepancy, unspecified trimester (principal)
CPT/HCPCS: 76816

== ENCOUNTER → 2020-11-01 09:22 | Outpatient (BNVA) | payer OTHER, SELFPAY | PROVIDERS: Visit Provider Advanced Practice Midwife | DX: O98.813 Other maternal infectious and parasitic diseases complicating pregnancy, third trimester (principal); B37.9 Candidiasis, unspecified; Z3A.36 36 weeks gestation of pregnancy | CPT/HCPCS: 81003; 99212 ==

== ENCOUNTER 2020-11-09 08:41 | Outpatient (REF) | payer OTHER, SELFPAY ==
--- NOTE | ~2020-11-09 | US_ITS ---
EXAMINATION: US OBSTETRICAL (BIOPHYSICAL PROFILE) CLINICAL INFORMATION: 20-year-old at the 37.6 weeks of gestation Low amniotic fluid COMPARISON: 10/29/2020 TECHNIQUE: Biophysical profile is performed over 30 minutes with assessment of breathing, gross body movement, tone, and qualitative amniotic fluid volume. FINDINGS: POSITION: Cephalic PLACENTA: Anterior without previa AMNIOTIC FLUID INDEX: 13.6 cm CARDIAC ACTIVITY: 144 beats per minute BIOPHYSICAL PROFILE: Motion: 2 Tone: 2 Breathin Amniotic Fluid: 2 The total biophysical score is 8/8 US/US OB follow up IMPRESSION: 1. Single intrauterine gestation in vertex position. 2. Reassuring BPP and CROW Thank you for allowing me to participate in her care. This note was generated with a voice recognition program. Please excuse any errors which may have been overlooked during my review of this note. Sometimes these errors may affect the content or meaning of a given sentence.
== END 2020-11-09 08:42 | disposition home or self-care (01) ==
LOC: HO.US 08:41
PROVIDERS: PCP Pediatrics; Visit Provider Advanced Practice Midwife
DX: O28.8 Other abnormal findings on antenatal screening of mother (principal); O98.313 Other infections with a predominantly sexual mode of transmission complicating pregnancy, third trimester; O26.893 Other specified pregnancy related conditions, third trimester; B00.9 Herpesviral infection, unspecified; J45.909 Unspecified asthma, uncomplicated; Z3A.37 37 weeks gestation of pregnancy; Z79.899 Other long term (current) drug therapy
CPT/HCPCS: 76816; 99212

== ENCOUNTER → 2020-11-16 14:51 | Outpatient (BNVA) | payer OTHER, SELFPAY | PROVIDERS: PCP Pediatrics; Visit Provider Advanced Practice Midwife | DX: O28.8 Other abnormal findings on antenatal screening of mother (principal); Z3A.38 38 weeks gestation of pregnancy | CPT/HCPCS: 99212 ==

== ENCOUNTER → 2021-01-02 13:54 | Outpatient (BNVA) | payer OTHER, SELFPAY | PROVIDERS: PCP Pediatrics; Visit Provider Advanced Practice Midwife | DX: Z39.2 Encounter for routine postpartum follow-up (principal) | CPT/HCPCS: 99212 ==

== ENCOUNTER 2021-05-20 00:22 | Emergency (ER) | payer MEDICAID, SELFPAY ==
--- NOTE | 2021-05-20 | ECG_ITS ---
Test Reason : CHEST PAIN Blood Pressure : / mmHG Vent. Rate : 076 BPM Atrial Rate : 076 BPM P-R Int : 144 ms QRS Dur : 074 ms QT Int : 370 ms P-R-T Axes : 058 066 051 degrees QTc Int : 416 ms Normal sinus rhythm Normal ECG No significant changes when compared with the previous EKG of 27 september 2017. Referred By: Chele Cates Electronically Signed By:DELGADO SÁNCHEZ
[2021-05-20 02:06] VITALS: BP 130/82; PULSE 72; RESP 16; TEMP 36.7; BMI 17.8
[2021-05-20 04:51] VITALS: BP 128/80; PULSE 80; RESP 14; O2SAT 97
[2021-05-20 06:11] VITALS: BP 126/80; PULSE 75; RESP 14; O2SAT 97
== END 2021-05-20 08:07 | disposition left against medical advice (07) ==
PROVIDERS: Emergency Provider Emergency Medicine
DX: R07.89 Other chest pain (principal); Z79.899 Other long term (current) drug therapy
CPT/HCPCS: 93005; 99283

== ENCOUNTER 2021-08-29 18:55 | Emergency (ER) | payer MEDICAID, SELFPAY ==
[2021-08-29 19:36] VITALS: BP 113/77; PULSE 77; RESP 14; TEMP 37.4; O2SAT 100; BMI 17.5
== END 2021-08-30 00:09 | disposition left against medical advice (07) ==
PROVIDERS: Emergency Provider Emergency Medicine
DX: M25.562 Pain in left knee (principal)
CPT/HCPCS: 99281

== ENCOUNTER 2022-01-15 03:47 | Emergency (ER) | payer MEDICAID, SELFPAY ==
--- NOTE | ~2022-01-15 | US_ITS ---
EXAMINATION: US OBSTETRICAL ULTRASOUND CLINICAL INFORMATION: 6 weeks . Abdominal cramping and spotting. COMPARISON: None. LMP: 12/04/2021. Gestational age by maternal dates is 6 weeks 0 days. Estimated date of delivery by maternal dates is 09/10/2022. TECHNIQUE: Ultrasound of the maternal pelvis is performed using transabdominal and transvaginal transducers. Transvaginal imaging is performed due to inadequate visualization transabdominally. M-mode Doppler is also performed. FINDINGS: There is a single intrauterine gestational sac with visible yolk sac, embryo/fetus, and cardiac activity. There is a small subchorionic hemorrhage identified, measuring 0.3 x 0.4 x 0.7 cm.. HR: 93 beats per minute. CRL (crown rump length): 0.16 cm. At this size, cannot calculate gestational age. MATERNAL ADNEXA: The right maternal ovary measures 2.2 x 1.3 x 1.7 cm. The left maternal ovary measures 3.2 x 2.2 x 2.6 cm. 1.3 cm corpus luteum noted. Dominant 1.2 cm follicle. There is no significant maternal adnexal mass. Moderate volume of free fluid. US/US OB pelvic and transvaginal IMPRESSION: 1. There is a single live intrauterine identified, though based on the small size, gestational age is not measurable. The slow heart rate may also be secondary to the very early stage. Continue close follow-up. 2. Small subchorionic hemorrhage. 3. Moderate volume free fluid.
--- NOTE | ~2022-01-15 | US_ITS ---
EXAMINATION: ULTRASOUND APPENDIX CLINICAL INFORMATION: Right lower quadrant abdominal pain COMPARISON: None TECHNIQUE: Sonographic evaluation of the right lower quadrant, with additional imaging of the right upper arm. FINDINGS: The appendix is not identified. No right lower quadrant free fluid. Small lymph nodes are noted. Normal size and echogenicity of the right kidney. No hydronephrosis. This has a long axis dimension of 11.5 cm. There is a midpole 0.4 cm calculus. The gallbladder is normally distended with multiple internal stones. Stones are seen in the gallbladder neck. No wall thickening or pericholecystic fluid. The common bile duct is normal in caliber, measuring 0.3 cm. US/US appendix IMPRESSION: The appendix is not identified. This does not exclude acute appendicitis. Cholelithiasis, including stones in the gallbladder neck. No inflammatory changes are seen in the gallbladder. Nonobstructing right renal calculus.
[2022-01-15 04:35] VITALS: BP 111/72; PULSE 68; RESP 13; TEMP 37.1; O2SAT 100; BMI 17.5
[2022-01-15 05:07] LABS: Hematocrit 36.7 % (37.0-47.0); Hemoglobin 11.8 g/dl (12.0-16.0); Mean Corpuscular HGB Conc 32.2 g/dl (31.0-35.0); Mean Corpuscular Hemoglobin 26.9 pg (27.0-33.0); Mean Corpuscular Volume 83.8 fL (80.0-98.0); Mean Platelet Volume 9.4 fL (9.4-12.3); Platelet Count 264 X10*3/uL (160-400); Red Blood Count 4.38 X10*6/uL (4.20-5.50); Red Cell Distribution Width 12.2 % (11.0-16.0); White Blood Count 6.7 X10*3/uL (4.8-10.8)
[2022-01-15 05:24] LABS: Alanine Aminotransferase 9 U/L (0-31); Albumin Level 4.4 g/dL (3.5-5.0); Alkaline Phosphatase 47 U/L (39-117); Anion Gap 14 (12-20); Aspartate Amino Transferase 14 U/L (5-31); Bilirubin Total 0.4 mg/dL (0.0-1.0); Blood Urea Nitrogen 7 mg/dL (9-16); Calcium 9.4 mg/dL (8.4-10.2); Carbon Dioxide 24 mmol/L (22-29); Chloride 106 mmol/L (96-108); Creatinine Clr Calc Pharmacy 90.3; Estimated Glomerular Filt Rate > 60; Glucose Random 91 mg/dL (60-115); Potassium 3.8 mmol/L (3.3-5.1); Sodium 140 mmol/L (135-145); Total Protein 6.8 g/dL (6.5-8.0)
[2022-01-15 05:30] LABS: HCG Quantitative 2887 mIU/mL
[2022-01-15 07:51] LABS: Appearance Urine Cloudy; Color Urine Yellow; Glucose Urine UA Negative (Negative); Leukocyte Esterase Urine Trace (Negative); Nitrite Urine Negative (Negative); UMIC TRIGGER UACC YES; Urine Blood Negative (Negative); Urine Ketones Negative (Negative); Urine Protein Negative (Neg-Trace)
[2022-01-15 07:56] LABS: Bacteria Urine 1+ (None Seen); Hyaline Casts Urine 0-2 /LPF (0-2); RBC Urine 0-2 /HPF (0-2); WBC Urine 0-5 /HPF (0-5)
--- OUTSIDE RECORDS SUMMARY | 2022-01-15 09:04 | XMS_ITS | Continuity of Care Document ---
:2000 Author Organization [facility] Address [address] [place] [phone]- Care Team Providers Name Role Phone Not on Staff, PCP Primary Care Physician Unavailable [place] [facility] [place] 11/23/[address] [address] Discharge Disposition: A-D/C Home Attending Physician: Rico Walls MD Admitting Physician: Rico Walls MD Referring Physician: Rico Walls MD Allergies, Adverse Reactions, Alerts Substance Reaction Severity Status Pollen Active Seafood1 Severe Active Other Food Allergy2, 3 Severe Active [id number] Medications Albuterol (Eqv-Proventil HFA) Inhalation, Every 6 hours, 0 Refills, Maintenance, 11/06/20 2:02:00 EDT, Partial fill upon patient request if the prescription is for a schedule II opioid drug. Start Date: 11/06/20 Status: OrderedPrenatal Multivitamins By Mouth, Daily, 0 Refills, Maintenance, 09/10/20 19:33:00 EDT, Partial fill upon patient request ifthe prescription is for a schedule II opioid drug. Start Date: 09/10/20 Status: OrderedValtrex 500 mg oral tablet 500 mg, 1, tablet, By Mouth, Daily, Refills 0, Maintenance, 11/06/20 2:00:00 EDT, Partial fill upon patient request if the prescription is for a schedule II opioid drug. Start Date: 11/06/20 Status: Ordered Problem List Condition Effective Dates Status Health Status Informant Asthma(Confirmed) Active Vital Signs Most recent to oldest 1 2 3 [Reference Range]: Height 162.56 cm 162.56 cm 162.56 cm (11/23/20 8:36 AM) (11/22/20 4:35 PM) (11/22/20 8:2 0 AM) Weight 66.63 kg 66.6 kg (11/21/20 8:01 PM) (11/21/20 5:53 PM) Oxygen Saturation [94-100 %] 99 % 98 % 100 % (11/23/20 8:36 AM) (11/22/20 12:15 AM) (11/21/20 8: 28 PM) Pulse Rate [55-90 bpm] 79 bpm 73 bpm 71 bpm (11/23/20 8:36 AM) (11/22/20 11:10 PM) (11/22/20 4: 35 PM) Body Mass Index [18.5-24.99] 25.21 *H* (11/21/20 8:01 PM) Blood Pressure [90-138/55-84 127/75 mm Hg 121/75 mm Hg 128 /77 mm Hg mm Hg] (11/23/20 8:36 AM) (11/22/20 11:10 PM) (11/22/20 4: 35 PM) Respiratory Rate [16-30 18 br/min 16 br/min 18 br/mi n br/min] (11/23/20 8:36 AM) (11/22/20 11:10 PM) (11/22/20 4: 35 PM) Temperature [96.8-100.4 DegF] 98.2 DegF 98.3 DegF 98 .3 DegF (11/23/20 8:36 AM) (11/22/20 11:10 PM) (11/22/20 4: 35 PM) Mode of Delivery (Oxygen) Room air Room air Room a ir (11/23/20 8:36 AM) (11/22/20 12:15 AM) (11/21/20 6: 04 PM) Blood pressure sites Arm, left Arm, left Arm, right (11/23/20 8:36 AM) (11/22/20 11:10 PM) (11/21/20 8: 01 PM) Temperature Route Oral Oral Oral (11/23/20 8:36 AM) (11/22/20 11:10 PM) (11/22/20 4: 35 PM) Dry Weight 66.6 kg 66.6 kg (11/21/20 8:01 PM) (11/21/20 5:53 PM) Weight Obtained Via Standing scale (11/21/20 5:53 PM) Dry Weight Obtained Via Standing scale (11/21/20 5:53 PM) Social History Social History Type Response Smoking Status Never (less than 100 in life time) entered on: 11/21/20 Sex
--- OUTSIDE RECORDS SUMMARY | 2022-01-15 09:04 | XMS_ITS | Continuity of Care Document ---
:2000 Author Organization [facility] Address [address] [place] [id number]- Care Team Providers Name Role Phone Not on Staff, PCP Primary Care Physician Unavailable [place] [facility] [place] 11/06/20 - 11/06/[address] [address]- Discharge Disposition: A-D/C Home Attending Physician: Dulce Jordan MD Admitting Physician: Dulce Jordan MD Referring Physician: Dulce Jordan MD Allergies, Adverse Reactions, Alerts Substance Reaction Severity Status Pollen Active Seafood1 Severe Active Other Food Allergy2, 3 Severe Active [id number] Medications Albuterol (Eqv-Proventil HFA) Inhalation, Every 6 [...] Dates Status Health Status Informant Asthma(Confirmed) Active Oligohydramnios(Confirmed)1 11/06/20 Active 1Problem added by Discern Expert Vital Signs Most recent to oldest [Reference Range]: 1 Weight 65.0 kg (11/06/20 1:50 AM) Oxygen Saturation [94-100 %] 100 % (11/06/20 2:09 AM) Blood Pressure [90-138/55-84 mm Hg] 129/80 mm Hg (11/06/20 2:09 AM) Respiratory Rate [16-30 br/min] 18 br/min (11/06/20 2:09 AM) Temperature [96.8-100.4 DegF] 97.6 DegF (11/06/20 1:50 AM) Mode of Delivery (Oxygen) Room air (11/06/20 2:09 AM) Blood pressure sites Arm, left (11/06/20 2:09 AM) Temperature Route Oral (11/06/20 1:50 AM) Dry Weight 65.0 kg (11/06/20 1:50 AM) Weight Obtained Via Standing scale (11/06/20 1:50 AM) Dry Weight Obtained Via Standing scale (11/06/20 1:50 AM) Social History Social History Type Response Smoking Status Never (less than 100 in life time) entered on: 11/06/20 Sex
--- OUTSIDE RECORDS SUMMARY | 2022-01-15 09:04 | XMS_ITS | Continuity of Care Document ---
:2000 Author Organization [facility] Address [address] [place] [id number]- Care Team Providers Name Role Phone Not on Staff, PCP Primary Care Physician Unavailable Encounter [facility] [place] Date(s): 10/06/20 - 10/06/[address] [address]- Discharge Disposition: A-D/C Home Attending Physician: Laith Hartmann MD Admitting Physician: Laith Hartmann MD Referring Physician: Laith Hartmann MD Allergies, Adverse Reactions, Alerts Substance Reaction Severity Status Pollen Active Seafood Active Other Food Allergy1 Active 1MANGO Medications Multivitamins By Mouth, Daily, 0 Refills, Maintenance, 09/10/20 19:33:00 EDT, Partial fill upon patient request ifthe prescription is for a schedule II opioid drug. Start Date: 09/10/20 Status: Ordered Problem List Condition Effective Dates Status Health Status Informant Asthma(Confirmed) Active Vital Signs Most recent to oldest 1 2 3 [Reference Range]: Height 163 cm 163 cm 163 cm (10/06/20 12:45 AM) (10/06/20 12:32 AM) (10/06/20 1 2:31 AM) Weight 61.6 kg (10/06/20 12:31 AM) Oxygen Saturation [94-100 %] 100 % (10/06/20 12:45 AM) Pulse Rate [55-90 bpm] 114 bpm *H* (10/06/20 12:45 AM) Body Mass Index [18.5-24.99] 23.18 (10/06/20 12:31 AM) Blood Pressure [90-138/55-84 112/72 mm Hg mm Hg] (10/06/20 12:45 AM) Respiratory Rate [16-30 18 br/min br/min] (10/06/20 12:45 AM) Temperature [96.8-100.4 97.8 DegF DegF] (10/06/20 12:31 AM) Mode of Delivery (Oxygen) Room air (10/06/20 12:45 AM) Blood pressure sites Arm, right (10/06/20 12:45 AM) Temperature Route Oral (10/06/20 12:31 AM) Dry Weight 61.6 kg (10/06/20 12:31 AM) Weight Obtained Via Standing scale (10/06/20 12:31 AM) Dry Weight Obtained Via Standing scale (10/06/20 12:31 AM)
--- NOTE | 2022-01-15 09:37 | ED.GENADULT ---
HPI - General Adult General Chief complaint: General Medical Stated complaint: 6 weeks /cramping and spotting Time Seen by Provider: 01/15/22 09:14 Source: patient and family Mode of arrival: ambulatory Limitations: no limitations History of Present Illness HPI narrative: 21 year old + 6 weeks with a PMH of Asthma and genital herpes presenting with spotting, and RLQ cramping. She states that the cramping started last night, and when she wipes she notices scant blood. She states the cramping/ discomfort started in the back and is now currently local to her suprapubic/RLQ. The pain is non radiating. She endorses nausea, vomiting, and headache. She denies abnormal vaginal discharge, pain with urination, fever, chills, constipation, diarrhea, or rashes. The patient reports she had one episode of bleeding last week in which she went though 1 pad. LMP: 12/04/2021 Of note patient's first OB visit is scheduled for Thursday. Patient reports she has been taking prenatals. The patient denies any complications with prior pregnancies. MD complaint: Abdominal cramping and vaginal bleeding/spotting Onset (ago): hour(s) (12) Location: abdomen (LLQ) Radiation: non-radiation Severity: mild Quality: other (cramping ) Pain Consistency: intermittent Exacerbating factors: movement and other (palpation) Associated symptoms: nausea/vomiting (states this is normal for her 1st trimester ) Treatments prior to arrival: none Related Data Previous Rx's Medication Instructions Recorded vits no.130-ferrous fum 1 tab PO DAILY #30 tabs 03/21/20 27 mg iron-folic acid 800 mcg tablet ( Vitamin) metronidazole 500 mg tablet 500 mg PO BID 10 days #20 tabs 01/15/22 miconazole nitrate 200 mg-2 % (9 See Rx Instructions vaginal 01/15/22 gram) vaginal kit .COMPLEX Candidiasis vaginitis #1 ea prenat.vits,karina,[id number] 1 tab PO BEDTIME #30 tabs 01/15/22 Allergies Allergy/AdvReac Type Severity Reaction Status Date / Time merced [MERCED] Allergy Unknown ANGIOEDEMA Verified 01/02/21 14:08 pollen extracts [POLLEN] Allergy Unknown ITCHY EYES Verified 01/02/21 14:08 SEAFOOD Allergy Unknown ANAPHYLAXIS Uncoded 11/16/20 15:01 Review of Systems Review of Systems: Constitutional : No Weight loss, No Fever, No Chills, No Night Sweats, No Fatigue, No Malaise ENT/Mouth : No Hearing loss, No Ear Pain, No Nasal Congestion, No Sinus Pain, No Hoarseness, No sore throat, No Rhinorrhea, No Swallowing Difficulty Eyes: No Eye Pain, No Swelling, No Redness, No Foreign Body, No Discharge, No Vision Changes Cardiovascular : No Chest Pain, No SOB, No Dyspnea on Exertion, No Orthopnea, No Edema, No Palpitations Respiratory : No Cough, No Sputum, No Wheezing, No Smoke Exposure, No Dyspnea Gastrointestinal : + Nausea, + Vomiting, No Diarrhea, No Constipation, + abdominal Pain, No Hematochezia, No Melena Genitourinary : + irregular bleeding, No Dysuria, No Urinary Frequency, No Hematuria, No Urinary Incontinence, No Urgency, No Flank Pain, No Urinary Flow Changes, No Hesitancy Musculoskeletal : No joint pain, No Myalgias, No Joint Swelling Skin : No Skin Lesions, No rash Neuro : No Weakness, No Numbness, No Paresthesias, No Loss of Consciousness, No Dizziness, + Headache Psych : No Anxiety/Panic, No Depression, No SI/HI/AH/VH, No Social Issues, Heme/Lymph: No Bruising, No Bleeding,No Lymphadenopathy Yes all other systems are reviewed and are negative [facility] Past Medical History Attestation statement: The following information was validated with the patient. Source: old records reviewed and nursing notes reviewed Medical History History of asthma HSV-2 infection Family History Family History Maternal Grandmother CVD (cardiovascular disease) Maternal Grandfather History of heart attack Paternal Grandmother No problems noted. Maternal Uncle History of colon cancer Social History Social History Household Members: Significant Other and Children Alcohol intake: never Patient Tobacco Use Status: Never used Tobacco Advance Directives: No Advance Directives Information Provided: No Sexual orientation: Straight/Heterosexual Gender identity: Female Physical Exam ED Vital Signs: Vital Signs - 24 hr 01/15/22 04:35 Temperature 98.7 F Pulse Rate 68 Respiratory Rate 13 Blood Pressure 111/72 Pulse Oximetry 100 Oxygen Delivery Method Room Air BMI result Body Mass Index 17.5 vital signs have been reviewed as normal and appeared to be correct. Blood pressure normal. Heart rate normal. Respiration rate normal. Temperature normal. Oxygen saturation normal. Appearance: Alert. Oriented X3. No acute distress. Head: Normal external exam. Normocephalic. Atraumatic. Eyes: PERRLA. EOMI. Conjunctiva and sclera normal. Eyelids normal. ENT: Moist mucous membranes. No lesions/ulcerations or masses noted on the tongue. Normal voice. No trismus noted. No drooling noted. No muffled voice noted. Neck: Normal inspection. Neck supple. FROM. No adenopathy. No meningeal signs. CVS: Normal heart rate and rhythm. Heart sound normal. Pulses normal throughout. No murmurs/rales/gallops. Respiratory: No respiratory distress. Painless inspiration. Breath sounds normal. No wheezes/rales/rhonchi noted. No accessory muscle usage noted or decreased air movement noted. No signs of trauma. Abdomen: Soft. Tender to palpation in RLQ although mainly in superpubic. No voluntary/involuntary guarding. Bowel sounds normal in all 4 quadrants. No distention noted. No organomegaly noted. No visible injury noted. - McBurney's point, -Obturator, -Psoas, -Rosvling. : Supervised by FAITH Harmon. Normal external appearance of urethra. No lesions/lacerations or tenderness noted. Speculum exam normal appearance/palpation of vagina normal. She is noted to have a thin white cottage cheese like nonodorous discharge. Otherwise no vaginal erythema. No foreign bodies noted. No vaginal laceration/lesions or active bleeding noted. No tissue present in vagina. No vaginal mass noted. No vaginal swelling noted. No vaginal tenderness noted. Normal appearance of cervix. Normal palpation of cervix. Cervical os is closed. No cervical lesion/mass. No Bartholin cyst noted. No cervical motion tenderness noted. Negative chandelier sign. Normal bimanual exam. Uterine size normal. Bladder normal to palpation. Uterine consistency normal. Normal cervical palpation. Uterine mobility normal. Uterine shape normal. Normal adnexa. Normal rectovaginal exam. Back: No CVA tenderness. Full range of motion noted. Nontender. Skin: Skin warm and dry. Normal skin color. Normal skin turgor. No rashes/lesions/lacerations noted. Extremities: Extremities exhibit normal range of motion and nontender. Neuro: Oriented X 3. No motor deficit. No sensory deficit. Reflexes normal. Normal steady gait. No focal neuro deficits noted. CN's II-XII intact bilaterally? Vascular: +2 radial pulses b/l. Normal cap refill. No cyanosis noted to upper extremity nails and lower extremity toes nails. Course Course Course Narrative: Patient is 21-year-old female with a PMH of asthma and genital herpes presenting today for light spotting, abdominal cramping. Physical exam significant for right lower quadrant and superpubic tenderness. Positive McBurney's point, negative obturator, negative psoas, negative Rovsing. Of note patient's blood type is A+: therefore Rhogram is not indicated in this patient. ddx: AUB. An ultrasound of the pelvis will be performed to rule out an , outside the uterus, Eptopic. An ultrasound of the appendix will be performed to rule at about appendicitis, though low suspicion for this due to normal white blood cell count, no fever or chills. A UA and vaginal swab be performed to rule out a UTI & STIs. Plan: - ultrasound of abdomen, ultrasound of pelvis - vaginal swab - UA - pelvic exam - lab work - HCG Reevaluation(s) Reevaluation #1: CBC: H&H (11.8/36.7); MCH (26.9); ESR (2) -Patient is chronically anemic patient is above baseline. WBC/ESR/CRP is WNL therefore appendicitis is unlikely. Chem: BUN (7). All other lab values are within normal limits. Beta HCG, quant: 2887 -this is consistent with a 6 week UA: Appearance (cloudy); leukocyte esterase (Trace); squamous epithelial cells (6-10); RBCs (0-2); bacteria (1+) - this is a dirty catch, though will await a culture to confirm no UTI Reevaluation #2: - ultrasound reveals single live intrauterine identified though small size in gestational age is not measurable at this time. There is a slow heart rate which may be secondary to very early stage. Continue close follow-up. Small subchronic hemorrhage noted. Moderate volume of free fluid. Otherwise no other acute processes noted. - therefore at this time will DC home with instructions to follow-up with HEAVEN Serra on Thursday. I placed a repeat serum quant level in the computer and explained to the patient that she will have to go to outpatient lab them go to her scheduled appointment on Thursday with Dr. Ponce COLLADO. And to return if any worsening abdominal pain, return of any vaginal bleeding or any other symptoms complaints or concerns. Patient understands agrees with this plan. Time: 12:49 Medical Decision Making Medical Records Medical records reviewed: Yes I reviewed the patient's medical records. Lab Data Lab results reviewed: Yes I reviewed the patient's lab results. Result diagrams: 01/15/22 05:03 01/15/22 05:03 Labs: Lab Results 01/15/22 01/15/22 01/15/22 Range/Units 05:03 05:03 05:03 WBC 6.7 (4.8-10.8) X10*3/uL RBC 4.38 (4.20-5.50) X10*6/uL Hgb 11.8 L (12.0-16.0) g/dl Hct 36.7 L (37.0-47.0) % MCV 83.8 (80.0-98.0) fL MCH 26.9 L (27.0-33.0) pg MCHC 32.2 (31.0-35.0) g/dl RDW 12.2 (11.0-16.0) % Plt Count 264 (160-400) X10*3/uL MPV 9.4 (9.4-12.3) fL Absolute Nucleated RBC 0.000 (0.0-0.012) X10*3/uL Nucleated RBC % (auto) 0.0 (0.0-0.2) /100WBC ESR 2 (0-20) MM/HR Sodium 140 (135-145) mmol/L Potassium 3.8 (3.3-5.1) mmol/L Chloride 106 (96-108) mmol/L Carbon Dioxide 24 (22-29) mmol/L Anion Gap 14 (12-20) BUN 7 L (9-16) mg/dL Creatinine 0.72 (0.5-1.4) mg/dL Estim Creat Clear Calc 90.3 Estimated GFR > 60 Random Glucose 91 (60-115) mg/dL Calcium 9.4 (8.4-10.2) mg/dL Total Bilirubin 0.4 (0.0-1.0) mg/dL AST 14 (5-31) U/L ALT 9 (0-31) U/L Alkaline Phosphatase 47 (39-117) U/L C-Reactive Protein 0.03 (< or = 0.50) mg/dL Total Protein 6.8 (6.5-8.0) g/dL Albumin 4.4 (3.5-5.0) g/dL Beta HCG, Quant 2887 mIU/mL Urine Color Urine Appearance Urine pH (5.0-9.0) Ur Specific [place] (1.005-1.025) Urine Protein (Neg-Trace) mg/dL Urine Glucose (UA) (Negative) mg/dL Urine Ketones (Negative) mg/dL Urine Blood (Negative) Urine Nitrite (Negative) Ur Leukocyte Esterase (Negative) Urine RBC (0-2) /HPF Urine WBC (0-5) /HPF Ur Squamous Epith Cells (0-2) /HPF Urine Bacteria (None Seen) Hyaline Casts (0-2) /LPF Chlam trachomat DNA PCR (Not Detect.) N.gonorrhoeae DNA (PCR) (Not Detect.) 01/15/22 01/15/22 Range/Units 07:43 10:44 WBC (4.8-10.8) X10*3/uL RBC (4.20-5.50) X10*6/uL Hgb (12.0-16.0) g/dl Hct (37.0-47.0) % MCV (80.0-98.0) fL MCH (27.0-33.0) pg MCHC (31.0-35.0) g/dl RDW (11.0-16.0) % Plt Count (160-400) X10*3/uL MPV (9.4-12.3) fL Absolute Nucleated RBC (0.0-0.012) X10*3/uL Nucleated RBC % (auto) (0.0-0.2) /100WBC ESR (0-20) MM/HR Sodium (135-145) mmol/L Potassium (3.3-5.1) mmol/L Chloride (96-108) mmol/L Carbon Dioxide (22-29) mmol/L Anion Gap (12-20) BUN (9-16) mg/dL Creatinine (0.5-1.4) mg/dL Estim Creat Clear Calc Estimated GFR Random Glucose (60-115) mg/dL Calcium (8.4-10.2) mg/dL Total Bilirubin (0.0-1.0) mg/dL AST (5-31) U/L ALT (0-31) U/L Alkaline Phosphatase (39-117) U/L C-Reactive Protein (< or = 0.50) mg/dL Total Protein (6.5-8.0) g/dL Albumin (3.5-5.0) g/dL Beta HCG, Quant mIU/mL Urine Color Yellow Urine Appearance Cloudy Urine pH 6.0 (5.0-9.0) Ur Specific [place] 1.020 (1.005-1.025) Urine Protein Negative (Neg-Trace) mg/dL Urine Glucose (UA) Negative (Negative) mg/dL Urine Ketones Negative (Negative) mg/dL Urine Blood Negative (Negative) Urine Nitrite Negative (Negative) Ur Leukocyte Esterase Trace H (Negative) Urine RBC 0-2 (0-2) /HPF Urine WBC 0-5 (0-5) /HPF Ur Squamous Epith Cells 6-10 (0-2) /HPF Urine Bacteria 1+ (None Seen) Hyaline Casts 0-2 (0-2) /LPF Chlam trachomat DNA PCR NOT DETECTED (Not Detect.) N.gonorrhoeae DNA (PCR) NOT DETECTED (Not Detect.) Imaging Data OB ultrasound: Attestation: I personally reviewed and interpreted this imaging study as follows: Radiologist's impression: FINDINGS: There is a single intrauterine gestational sac with visible yolk sac, embryo/fetus, and cardiac activity. There is a small subchorionic hemorrhage identified, measuring 0.3 x 0.4 x 0.7 cm.. HR:? 93 beats per minute. CRL (crown rump length): ? 0.16 cm. At this size, cannot calculate gestational age. MATERNAL ADNEXA: ? ? The right maternal ovary measures 2.2 x 1.3 x 1.7 cm. The left maternal ovary measures 3.2 x 2.2 x 2.6 cm.? 1.3 cm corpus luteum noted. Dominant 1.2 cm follicle. There is no significant maternal adnexal mass.? Moderate volume of free fluid. US/US OB pelvic and transvaginal IMPRESSION: 1. There is a single live intrauterine identified, though based on the small size, gestational age is not measurable. The slow heart rate may also be secondary to the very early stage. Continue close follow-up. 2. Small subchorionic hemorrhage. 3. Moderate volume free fluid. Appendix ultrasound: Attestation: I personally reviewed and interpreted this imaging study as follows: Radiologist's impression: FINDINGS: The appendix is not identified. No right lower quadrant free fluid. Small lymph nodes are noted. Normal size and echogenicity of the right kidney. No hydronephrosis. This has a long axis dimension of 11.5 cm. There is a midpole 0.4 cm calculus. The gallbladder is normally distended with multiple internal stones. Stones are seen in the gallbladder neck. No wall thickening or pericholecystic fluid. The common bile duct is normal in caliber, measuring 0.3 cm.? US/US appendix IMPRESSION: The appendix is not identified. This does not exclude acute appendicitis. ? Cholelithiasis, including stones in the gallbladder neck. No inflammatory changes are seen in the gallbladder. ? Nonobstructing right renal calculus.? Discharge Plan Discharge Clinical Impression: , Threatened , [place] vaginitis, Bacterial vaginosis Patient Disposition: Home, Self-Care Instructions: Threatened Miscarriage (ED), (ED) Additional Instructions: You have pending lab results. If any are positive you will be contacted within 3-5 days. You reported you have an appointment with the acquisition lead here at [facility] on Thursday. I placed an outpatient lab at the outpatient lab for a serum quant which is a blood test. You will go in the morning around 08:00 to have this blood test done then you will follow-up with the OBGYN at 13:00 as scheduled on Thursday. Return if you have any worsening abdominal pain/cramping or if you have any return of vaginal bleeding or any other symptoms. Prescriptions: New metronidazole 500 mg tablet 500 mg PO BID 10 Days Qty: 20 0RF prenat.vits,karina,[id number] Tablet 1 tab PO BEDTIME Qty: 30 0RF miconazole nitrate 200 mg- 2 % (9 gram) kit See Rx Instructions .ROUTE .COMPLEX Qty: 1 0RF Rx Instructions: put 1 supp in vagina at bedtime x 3nites;use cream on area outside vagina 2X/day for up to 7days No Action Vitamin 27 mg iron- 800 mcg tablet 1 tab PO DAILY Qty: 30 12RF Referrals: [facility] [Primary Care Provider] - (and your obgyn within 2-3 days ) Magnus Serra MD [Physician] - 2 days Stand Alone Forms: Work/School Release Print Language: Nepali
[2022-01-15 09:56] LABS: C Reactive Protein 0.03 mg/dL (< or = 0.50)
[2022-01-15 10:29] LABS: Erythrocyte Sedimentation Rate 2 MM/HR (0-20)
[2022-01-15 12:37] LABS: CT PCR NOT DETECTED (Not Detect.); NG PCR NOT DETECTED (Not Detect.)
--- NOTE | 2022-01-15 13:05 | PM.GYNCN ---
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 The patient reports she had one episode of bleeding last week in which she went though 1 pad.? No care this yet. The in the emergency room the following workup was done CBC, chemistry were within normal , hCG 2887, UA was positive for leukocyte esterase, GC and chlamydia and Trichomonas were negative,ultrasound of the abdomen showed the following: The appendix is not identified. This does not exclude acute appendicitis. ? Cholelithiasis, including stones in the gallbladder neck. No inflammatory changes are seen in the gallbladder. ? Nonobstructing right renal calculus.? pelvic ultrasound showed an IUP, see report cc:: CC: OB [facility] Past Medical History Medical History History of asthma HSV-2 infection Family History Family History Maternal Grandmother CVD (cardiovascular disease) Maternal Grandfather History of heart attack Paternal Grandmother No problems noted. 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 Tender to palpation in RLQ although mainly in superpubic.? No voluntary/involuntary guarding. Bowel sounds normal in all 4 quadrants. No distention noted.? No organomegaly noted.? No visible injury noted. - McBurney's point, -Obturator, -Psoas, -Rosvling. :? Supervised by FAITH Harmon. Normal external appearance of urethra.? No lesions/lacerations or tenderness noted.? Speculum exam normal appearance/palpation of vagina normal.? She is noted to have a thin white cottage cheese like nonodorous discharge.? Otherwise no vaginal erythema. No foreign bodies noted. No vaginal laceration/lesions or active bleeding noted.? No tissue present in vagina.? No vaginal mass noted.? No vaginal swelling noted.? No vaginal tenderness noted.? Normal appearance of cervix.? Normal palpation of cervix.? Cervical os is closed. No cervical lesion/mass.? No Bartholin cyst noted.? No cervical motion tenderness noted.? Negative chandelier sign.? Normal bimanual exam.? Uterine size normal.? Bladder normal to palpation.? Uterine consistency normal.? Normal cervical palpation.? Uterine mobility normal.? Uterine shape normal.? Normal adnexa.? Normal rectovaginal exam. 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 UPHOLSTERER APPRENTICE - Results Labs CBC & Chem 7: 01/15/22 05:03 01/15/22 05:03 Labs: Short CBC 01/15/22 Range/Units 05:03 WBC 6.7 (4.8-10.8) X10*3/uL Hgb 11.8 L (12.0-16.0) g/dl Hct 36.7 L (37.0-47.0) % Plt Count 264 (160-400) X10*3/uL BMP 01/15/22 05:03 Sodium 140 Potassium 3.8 Chloride 106 Carbon Dioxide 24 BUN 7 L Creatinine 0.72 Calcium 9.4 Liver Function 01/15/22 Range/Units 05:03 Total Bilirubin 0.4 (0.0-1.0) mg/dL AST 14 (5-31) U/L ALT 9 (0-31) U/L Alkaline Phosphatase 47 (39-117) U/L Albumin 4.4 (3.5-5.0) g/dL Urine 01/15/22 Range/Units 07:43 Urine Color Yellow Urine Appearance Cloudy Urine pH 6.0 (5.0-9.0) Ur Specific [place] 1.020 (1.005-1.025) Urine Protein Negative (Neg-Trace) mg/dL Urine Glucose (UA) Negative (Negative) mg/dL Imaging US - abdomen: Radiologist's impression: ITS Impressions Appendix Ultrasound 01/15/22 11:20 IMPRESSION: The appendix is not identified. This does not exclude acute appendicitis. Cholelithiasis, including stones in the gallbladder neck. No inflammatory changes are seen in the gallbladder. Nonobstructing right renal calculus. Pelvic/Transvag US 01/15/22 11:39 IMPRESSION: 1. There is a single live intrauterine identified, though based on the small size, gestational age is not measurable. The slow heart rate may also be secondary to the very early stage. Continue close follow-up. 2. Small subchorionic hemorrhage. 3. Moderate volume free fluid. Assessment and Plan (1) First trimester bleeding: Status: Acute Recommended to LILLIAM Mcnamara the following: Send urine for culture, repeat hCG and follow-up in outpatient office in 48 hours, SAB warnings to be given to patient, she is come back to the emergency room in case of worsening of the pain, fever above 100.4, vaginal bleeding or nausea or vomiting Spent a total of 20 minutes reviewing the chart, communicating with the ER provider and documenting in the medical record (2) Cholelithiasis: Status: Acute Will defer management and follow-up of cholelithiasis to the ER team (3) Right lower quadrant pain: Status: Acute Will defer management and follow-up of right lower quadrant pain/rule out appendicitis to the ER team.
[2022-01-16 09:46] LABS: BV Int Neg Control Negative (Negative); BV Int Pos Control Positive (Positive)
== END 2022-01-15 13:51 | disposition home or self-care (01) ==
PROVIDERS: Physician Assistant Medical; Emergency Provider Emergency Medicine Emergency Medical Services
DX: O20.9 Hemorrhage in early pregnancy, unspecified (principal); O23.591 Infection of other part of genital tract in pregnancy, first trimester; B37.31 Acute candidiasis of vulva and vagina; N76.0 Acute vaginitis; O99.611 Diseases of the digestive system complicating pregnancy, first trimester; K80.20 Calculus of gallbladder without cholecystitis without obstruction; Z3A.01 Less than 8 weeks gestation of pregnancy
CPT/HCPCS: 36415; 76705; 76801; 76817; 80053; 81001; 84702; 85027; 85652; 86140; 87480; 87491; 87510; 87591; 87660; 99283; 99284

== ENCOUNTER 2022-01-17 12:54 | Outpatient (REF) | payer MEDICAID, SELFPAY ==
[2022-01-17 13:51] LABS: HCG Quantitative 5318 mIU/mL
== END 2022-01-17 12:55 | disposition home or self-care (01) ==
LOC: HO.LAB 12:54
PROVIDERS: Visit Provider Obstetrics & Gynecology
DX: O20.9 Hemorrhage in early pregnancy, unspecified (principal)
CPT/HCPCS: 36415; 84702; 99212

== ENCOUNTER 2022-01-24 15:21 | Outpatient (REF) | payer MEDICAID, SELFPAY ==
--- NOTE | ~2022-01-24 | US_ITS ---
EXAMINATION: US OBSTETRICAL ULTRASOUND CLINICAL INFORMATION: Hemorrhage in early COMPARISON: Previous exam 01/15/2022. LMP: 12/04/2021. Gestational age by maternal dates is 7 weeks 2 days. Estimated date of delivery by maternal dates is 6 07/15/2022. TECHNIQUE: Transabdominal first trimester OB ultrasound FINDINGS: There is a single intrauterine gestational sac with visible yolk sac, embryo/fetus, and cardiac activity. There is no significant subchorionic hemorrhage or hematoma. HR: 141 beats per minute. CRL (crown rump length): 1 cm (7 weeks 1 day +/- 4 days). DOMINGA (estimated date of delivery): 09/11/2022 +/- 4 days. MATERNAL ADNEXA: The right maternal ovary measures 2.7 x 1.2 x 2.1 cm. The left maternal ovary measures 2.7 x 2 x 2.1 cm. Small 1.2 x 0.8 x 1 cm simple cyst. Small amount of maternal ascites. US/US OB pelvic and transvaginal IMPRESSION: 1. Single intrauterine gestation with ultrasound gestational age of 7 weeks 1 day +/- 4 days. 2. Estimated date of delivery is 09/11/2022 +/- 4 days.
== END 2022-01-24 15:22 | disposition home or self-care (01) ==
LOC: HO.US 15:21
PROVIDERS: Visit Provider Advanced Practice Midwife
DX: O20.9 Hemorrhage in early pregnancy, unspecified (principal)
CPT/HCPCS: 76801; 76817

== ENCOUNTER → 2022-01-30 08:11 | Outpatient (BNVA) | payer MEDICAID, SELFPAY | PROVIDERS: Visit Provider Advanced Practice Midwife | DX: O21.9 Vomiting of pregnancy, unspecified (principal); Z71.2 Person consulting for explanation of examination or test findings; Z3A.00 Weeks of gestation of pregnancy not specified | CPT/HCPCS: 99212 ==

== ENCOUNTER 2022-02-14 11:03 | Outpatient (REF) | payer MEDICAID, SELFPAY ==
[2022-02-14 11:57] LABS: Hematocrit 34.4 % (37.0-47.0); Hemoglobin 10.8 g/dl (12.0-16.0); Mean Corpuscular HGB Conc 31.4 g/dl (31.0-35.0); Mean Corpuscular Hemoglobin 27.1 pg (27.0-33.0); Mean Corpuscular Volume 86.2 fL (80.0-98.0); Mean Platelet Volume 10.3 fL (9.4-12.3); Platelet Count 220 X10*3/uL (160-400); Red Blood Count 3.99 X10*6/uL (4.20-5.50); Red Cell Distribution Width 13.7 % (11.0-16.0); White Blood Count 6.8 X10*3/uL (4.8-10.8)
[2022-02-14 12:53] LABS: Syphilis Screen Nonreactive (Nonreactive)
[2022-02-14 13:25] LABS: HBsAGNum1 0.34 S/CO (0.00-0.99); HIV AB/AG Nonreactive (Nonreactive); HIV Num 1 0.05 S/CO (0.00-0.99); Hepatitis B Surface Antigen Negative (Negative); ~HepC Num1 0.07 S/CO (0.00-0.79); ~Hepatitis C Antibody Nonreactive (Nonreactive)
[2022-02-17 17:26] LABS: Rubella IgG Antibody 3.75 Index
[2022-02-25 16:32] LABS: CF Ethnicity NG; Cystic Fibrosis NEGATIVE (NEGATIVE)
== END 2022-02-14 11:04 | disposition home or self-care (01) ==
LOC: HO.LAB 11:03
PROVIDERS: Visit Provider Advanced Practice Midwife
DX: Z32.01 Encounter for pregnancy test, result positive (principal)
CPT/HCPCS: 36415; 81220; 85027; 86762; 86780; 86787; 86803; 86850; 86900; 87340; 87389; 99212

== ENCOUNTER → 2022-03-07 09:31 | Outpatient (BNVA) | payer MEDICAID, SELFPAY | PROVIDERS: Visit Provider Advanced Practice Midwife | DX: Z34.81 Encounter for supervision of other normal pregnancy, first trimester (principal); Z3A.13 13 weeks gestation of pregnancy | CPT/HCPCS: 99212 ==

== ENCOUNTER → 2022-05-23 13:21 | Outpatient (BNVA) | payer MEDICAID, SELFPAY | PROVIDERS: Visit Provider Advanced Practice Midwife | DX: O98.512 Other viral diseases complicating pregnancy, second trimester (principal); B00.9 Herpesviral infection, unspecified; O09.292 Supervision of pregnancy with other poor reproductive or obstetric history, second trimester; O35.9XX0 Maternal care for (suspected) fetal abnormality and damage, unspecified, not applicable or unspecified; Z3A.24 24 weeks gestation of pregnancy | CPT/HCPCS: 81003; 99212 ==

== ENCOUNTER → 2022-06-20 14:03 | Outpatient (BNVA) | payer MEDICAID, SELFPAY | PROVIDERS: Visit Provider Advanced Practice Midwife | DX: O99.513 Diseases of the respiratory system complicating pregnancy, third trimester (principal); J45.909 Unspecified asthma, uncomplicated; O35.8XX0 Maternal care for other (suspected) fetal abnormality and damage, not applicable or unspecified; O11.3 Pre-existing hypertension with pre-eclampsia, third trimester; O36.5930 Maternal care for other known or suspected poor fetal growth, third trimester, not applicable or unspecified; O99.013 Anemia complicating pregnancy, third trimester; O98.513 Other viral diseases complicating pregnancy, third trimester; B00.9 Herpesviral infection, unspecified; Z3A.28 28 weeks gestation of pregnancy | CPT/HCPCS: 99212 ==

== ENCOUNTER → 2022-06-27 15:03 | Outpatient (BNVA) | payer MEDICAID, SELFPAY | PROVIDERS: Visit Provider Advanced Practice Midwife | DX: Z34.83 Encounter for supervision of other normal pregnancy, third trimester (principal); Z3A.29 29 weeks gestation of pregnancy | CPT/HCPCS: 81003; 99212 ==

== ENCOUNTER 2024-02-11 10:34 | Outpatient (REF) | payer MEDICAID, SELFPAY | END 2024-02-11 10:35 | disposition home or self-care (01) | LOC: HO.CT 10:34 | PROVIDERS: PCP Family Medicine; Visit Provider Family Medicine | DX: R51.9 Headache, unspecified (principal) | CPT/HCPCS: 36415; 70450; 82607; 82746; 86708 ==

== ENCOUNTER 2024-02-11 14:41 | Outpatient (REF) | payer MEDICAID, SELFPAY ==
[2024-02-11 18:30] LABS: Folate 15.4 ng/mL (> or = 4.0); Vitamin B12 395 pg/mL (200-900)
[2024-02-12 08:28] LABS: Hepatitis A Antibody IgG REACTIVE (Nonreactive); ~Hepatitis A Antibody IgG 13.07 S/CO (0.00-0.99)
== END 2024-02-11 14:42 | disposition home or self-care (01) ==
LOC: HO.HHCL 14:41
PROVIDERS: Visit Provider Family Medicine
DX: Z00.00 Encounter for general adult medical examination without abnormal findings (principal); D64.9 Anemia, unspecified; O99.345 Other mental disorders complicating the puerperium; F41.8 Other specified anxiety disorders; J45.20 Mild intermittent asthma, uncomplicated; R51.9 Headache, unspecified; R07.9 Chest pain, unspecified
CPT/HCPCS: 36415; 82607; 82746; 86708

== ENCOUNTER → 2024-02-19 15:00 | Outpatient (REF) | payer MEDICAID, SELFPAY ==
--- NOTE | 2024-02-19 15:02 | CA_ITS ---
Transthoracic Echocardiogram Patient (Last, First, Middle): Colleen Mart S Gender: Female Date of : 2000 Age: 23 Procedure Date: 02/19/2024 Procedure Type: Transthoracic Echocardiogram Location: OP Height: 162. cm Weight: 49.9 kg BSA: 1.51 m2 Heart Rate: 67 bpm BP: 115 / 75 mmHg Pleater Hand: CURTIS Chris MD: Sirena Burger DO Emergency Management Consultant: Driss Corona MD Symptoms: CP SOB R07.9 Study Quality: Adequate ECG Rhythm: Sinus Conclusions: - Normal study Findings Left Ventricle Normal left ventricular size, thickness, and systolic function. The visually estimated ejection fraction is between 65-70%. Diastolic function is normal for age. Right Ventricle Normal right ventricular cavity size and systolic function. Atria Both atria are normal in size. There is no evidence of interatrial shunt. Aortic Valve Normal aortic valve structure and function. There is no aortic valve stenosis. There is no aortic valve regurgitation. Mitral Valve Normal mitral valve structure and function. There is trace mitral valve regurgitation. There is no mitral valve stenosis. Pulmonic Valve The pulmonic valve is normal. There is trace pulmonic valve regurgitation. Tricuspid Valve Normal tricuspid valve structure. There is trace tricuspid valve regurgitation. The right ventricular systolic pressure is normal. The right ventricular systolic pressure is 12 mmHg. Normal right atrial pressure. There is no evidence of pulmonary hypertension. Great Vessels All visible segments of the aorta are normal in size. There is no dilatation of the ascending aorta measuring 2.70 cm. The visualized portions of the pulmonary artery and branches are normal. Venous The inferior vena cava is normal in size and collapses greater than 50% with inspiration. Pericardium/Pleural There is no evidence of pericardial effusion. Prior Study Comparison No prior study available for comparison. Measurements 2D Linear Measurements IVSd: 0.76 0.6-0.9/0.6-1.0 cm LVIDd: 4.59 3.9-5.3/4.2-5.9 cm LVIDd Index: 3.04 2.4-3.2/2.2-3.1 cm/m2 LVIDs: 2.95 2.0-3.6 cm LVPWd: 0.81 0.7-1.1 cm LA Diam: 3.00 2.7-3.8/3.0-4.0 cm LAIDs Index: 1.99 1.5-2.3 cm/m2 LV Mass: 142.29 67-162/88-224 g LV Mass Index: 94.23 43-95/49-115 g/m2 LVOT Diam: 1.80 3.0+(-)1.3 cm 2D Systolic Function EF 4C: 63.70 >55% EF 2C: 71.20 >55% EF BiP: 67.40 >55% Mitral Valve MV Pk E: 0.90 MV PK A: 0.57 MV Decel Time: 234.00 E/A: 1.60 E'Lateral: 13.10 E'Medial: 9.68 E/E' Med: 9.30 E/E' Lat: 6.90 PHT: 68.00 MVA PHT: 3.24 Decel [place]: 3.85 Aortic Valve AoV Pk Juan Carlos: 1.28 AoV Mn Juan Carlos: 0.95 AoV VTI: 0.32 AoV Pk Grad: 7.00 Aov Mn Grad: 4.00 ANA Cont.VTI: 1.88 LVOT LVOT Pk Juan [place]: 1.04 LVOT Mn Juan Carlos: 0.72 LVOT VTI: 0.23 LVOT Pk Grad: 4.00 LVOT Mn Grad: 2.00 LVOT Diam: 1.80 LVOT Area: 2.54 Diastolic Function MV Pk E: 0.90 MV Pk A: 0.57 E/A: 1.60 E'Medial: 9.68 E/E' Med: 9.30 E' Laterial: 13.10 E/E' Lat: 6.90 Right Ventricle TAPSE (mm): 22.60 TVS' Juan Carlos: 10.60 Tricuspid Valve TR Pk Juan Carlos: 1.52 TR Pk Grad: 9.00 RA Press: 3.00 RVSP: 12.00 Great Vessels Aorta Sinus of Valsalva: 2.70 2.0-3.5 cm Ao Asc: 2.70 2.1-3.4 cm Pulmonary Valve PV Pk Juan Carlos: 0.68 Peak PV Grad: 2.00 Updated in Other Vendor System with Status of Final Driss Corona MD electronically signed on 02/20/2024 10:05:57 AM with status of Final
== END ==
LOC: HO.CARD 15:00
PROVIDERS: PCP Family Medicine; Visit Provider Family Medicine
DX: R07.9 Chest pain, unspecified (principal)
CPT/HCPCS: 93306

== ENCOUNTER → 2024-02-19 15:02 | Outpatient (BNV) | payer MEDICAID, SELFPAY | PROVIDERS: PCP Family Medicine; Visit Provider Internal Medicine Cardiovascular Disease | DX: R07.9 Chest pain, unspecified (principal); R06.02 Shortness of breath | CPT/HCPCS: 93306 ==

== ENCOUNTER 2024-09-22 09:49 | Emergency (ER) | payer MEDICAID, SELFPAY ==
--- NOTE | 2024-09-22 09:52 | ECG_ITS ---
Test Reason : tachy Blood Pressure : */* mmHG Vent. Rate : 92 BPM Atrial Rate : 92 BPM P-R Int : 142 ms QRS Dur : 68 ms QT Int : 346 ms P-R-T Axes : 84 78 49 degrees QTcB Int : 427 ms Normal sinus rhythm with sinus arrhythmia Normal ECG When compared with ECG of 20-May-2021 01:20, No significant change was found Referred By: Generic ED Physician Electronically Signed By: DELGADO SÁNCHEZ
[2024-09-22 10:00] VITALS: BP 134/56; PULSE 73; RESP 18; TEMP 37.2; O2SAT 97; BMI 18.7
--- NOTE | 2024-09-22 10:27 | ED_ITS ---
HPI - General Adult General Chief complaint: Anxiety Stated complaint: heart racing Time Seen by Provider: 09/22/24 10:23 Source: patient, RN notes reviewed and old records reviewed Mode of arrival: ambulatory Limitations: no limitations History of Present Illness ED Provider: Cee [facility] narrative: Patient is a 24-year-old female with history of anxiety presenting to the emergency department with complaint of recent difficulty sleeping, today states that she was about to fall asleep she felt her heart was racing. States symptoms felt similar to previous episodes of acute anxiety but worse. Called her , who put ice on her neck and advised her to drink some cold water and symptoms improved. Patient states that she has been increasingly stressed lately due to her children being home from school. Has a therapist in the community but has not followed up recently. States she has been hesitant to use medication for her anxiety in the past. Denies current chest pain or shortness of breath. MD complaint: chest pain, palpitations, anxiety Onset (ago): minute(s) Related Data Previous Rx's ?Medication ?Instructions ?Recorded prenat.vits,karina,[id number] 1 tab PO BEDTIME Pregna ncy #30 tabs 01/15/22 hydroxyzine HCl 25 mg tablet 25 mg PO TID PRN anxiety #14 tabs 09/22/24 Allergies Allergy/AdvReac Type Severity Reaction Status Date / Time merced (MERCED) Allergy Unknown ANGIOEDEMA Verified 09/22/24 10:03 pollen extracts (POLLEN) Allergy Unknown ITCHY EYES Verified 09/22/24 10:03 SEAFOOD Allergy Unknown ANAPHYLAXIS Uncoded 09/22/24 10:03 Review of Systems 2 Review of Systems: As per HPI Yes all other systems are reviewed and are negative Constitutional: Constitutional: Reports as per HPI [facility] Past Medical History Medical History History of asthma HSV-2 infection Family History Family History Maternal Grandmother CVD (cardiovascular disease) Maternal Grandfather History of heart attack Paternal Grandmother No problems noted. Maternal Uncle History of colon cancer Social History Social History Household Members: Significant Other and Children Housing: Apartment Alcohol intake: never Patient Tobacco Use Status: Never used Tobacco Advance Directives: No Advance Directives Information Provided: No Do you have a plan to hurt others: No Plan Current occupational status: unemployed Sexual orientation: Straight/Heterosexual Gender identity: Female Physical Exam ED Vital Signs: Vital Signs - 24 hr 09/22/24 10:00 09/22/24 11:49 Temperature 99 F 98.5 F Pulse Rate 73 66 Respiratory Rate 18 16 Blood Pressure 134/56 L 116/77 Pulse Oximetry 97 100 Oxygen Delivery Method Room Air Room Air BMI result Body Mass Index 18.7 Vital signs have been reviewed and appear to be correct. Blood pressure normal. Heart rate normal. Respiratory rate normal. Temperature normal. Oxygen saturation normal. Const General: cooperative, healthy appearing and no acute distress Orientation/consciousness: oriented to person, oriented to place, oriented to time and patient oriented x3 Limitations: no limitations HENMT Head: Yes normocephalic and Yes atraumatic Ears: external ears normal General nose exam: Normal external nose present Face and sinus: Yes face symmetric Mouth: oropharynx normal and moist mucous membranes Throat: Yes uvula midline Eyes Pupils: Equal, round and reactive pupils present Neck Neck: Yes normal visual inspection and Yes supple Resp Effort & Inspection: normal respiratory effort and able to speak in complete sentences Auscultation: clear to auscultation bilaterally Cardio Rate: regular rate Rhythm: regular rhythm Heart sounds: S1 normal heart sound present and S2 normal heart sound present GI Palpation (GI): Soft to palpation and nontender Auscultation: normoactive bowel sounds General: Yes no CVA tenderness Back/Spine/Pelvis Back: no CVA tenderness Skin General skin exam: elasticity normal and turgor normal Neuro General: oriented to person, oriented to place, oriented to time, patient oriented x3, moves all extremities, no focal motor deficits and CN's II-XI intact bilaterally Cranial nerves: Yes Equal, round and reactive pupils present Cognition (Neuro): normal cognition Extrem General: Yes full ROM, Yes no pedal edema and Yes no calf tenderness Psych Mental Status: mental status grossly normal Affect: Anxious affect present Thought process: Normal thought process present Medical Decision Making Medical Decision Making MDM Narrative: Patient is a 24-year-old female with history of anxiety presenting to the emergency department with complaint of recent difficulty sleeping, today states that she was about to fall asleep she felt her heart was racing. On exam patient is awake, A+Ox3, VS WNL, afebrile, normal neurological exam without focal deficits, physical exam findings as above. Given reported symptoms and physical exam findings, initial differential includes but is not limited to acute anxiety, cardiac arrhythmia, electrolyte abnormality. Unlikely ACS. Labs notable for chronic anemia, significant electrolyte abnormalities, normal TSH, negative HCG. EKG shows normal sinus rhythm with sinus arrhythmia. Results discussed with patient and all questions answered. Patient amenable to trialing an hydroxyzine for anxiety. Encourage patient to reach out to her therapist to discussed daily medication for anxiety. Return precautions discussed at bedside. Patient verbalized understanding of and agreement with plan. Differential Diagnosis Differential Diagnoses: The differential diagnosis associated with the presentation includes as per [facility] Admission/Observation Consideration of admission/observation: Escalation of care including admission/observation considered Patient would have been admitted to the hospital had their work up had any findings where hospital admission was appropriate and their clinical presentation warranted hospital admission. Lab Data [facility] Lab Attestation statement: I reviewed the patient's lab results. as per [facility] 09/22/24 10:36 09/22/24 10:36 Labs: Lab Results 09/22/24 Range/Units 10:36 WBC 5.4 (4.8-10.8) X10*3/uL RBC 4.46 (4.20-5.50) X10*6/uL Hgb 11.2 L (12.0-16.0) g/dl Hct 35.4 L (37.0-47.0) % MCV 79.4 L (80.0-98.0) fL MCH 25.1 L (27.0-33.0) pg MCHC 31.6 (31.0-35.0) g/dl RDW 15.4 (11.0-16.0) % Plt Count 210 (160-400) X10*3/uL MPV 10.0 (9.4-12.3) fL Immature Gran % (Auto) 0.2 (0.0-0.4) % Neut % (Auto) 44.1 L (45-73) % Lymph % (Auto) 43.6 H (20-40) % Bartholomew % (Auto) 8.7 (2-11) % Eos % (Auto) 2.8 (0-4) % Baso % (Auto) 0.6 (0-2) % Lymph # (Auto) 2.4 (1.2-4.9) X10*3/uL Bartholomew # (Auto) 0.5 (0.1-1.2) X10*3/uL Eos # (Auto) 0.2 (0.0-0.4) X10*3/uL Baso # (Auto) 0.0 (0.0-0.2) X10*3/uL Abs Immat Gran (auto) 0.01 (0.00-0.03) X10*3/uL Absolute Neuts (auto) 2.4 (2.0-8.3) x10*3/uL Absolute Nucleated RBC 0.000 (0.0-0.012) X10*3/uL Nucleated RBC % (auto) 0.0 (0.0-0.2) /100WBC Sodium 139 (135-145) mmol/L Potassium 3.7 (3.3-5.1) mmol/L Chloride 110 H (96-108) mmol/L Carbon Dioxide 21 L (22-29) mmol/L Anion Gap 12 (12-20) BUN 8 L (9-16) mg/dL Creatinine 0.67 (0.5-1.4) mg/dL Estim Creat Clear Calc 101.0 Estimated GFR > 60 Random Glucose 89 (60-115) mg/dL Calcium 9.1 (8.4-10.2) mg/dL Magnesium 1.9 (1.6-2.6) mg/dL Total Bilirubin 0.5 (0.0-1.0) mg/dL AST 21 (5-31) U/L ALT 13 (0-31) U/L Alkaline Phosphatase 42 (39-117) U/L Total Protein 6.7 (6.5-8.0) g/dL Albumin 4.5 (3.5-5.0) g/dL TSH 3.07 (0.32-4.0) uIU/mL Beta HCG, Quant < 2 mIU/mL Independent Interpretation I performed an independent interpretation of an: EKG (Sinus rhythm with sinus arrhythmia, rate 92 beats per minute, normal OH interval and QTC) Independent Historian Clinical information obtained from an independent historian. History obtained from or confirmed by: Spouse External Record Review External record reviewed: Inpatient record, Office record and Outpatient record Discharge Plan Discharge Clinical Impression: Acute anxiety Patient Disposition: Home, Self-Care Instructions: Panic Disorder (ED), Anxiety (ED) Additional Instructions: You were evaluated in the emergency department today male for an episode of acute anxiety which caused palpitations, chest tightness and shortness of breath. Your labs and EKG were reassuring. You are being prescribed a medication called hydroxyzine which you can use as prescribed for anxiety. We recommend that you follow-up with your primary care provider to discuss a daily medication for anxiety. We also recommend that you follow-up with your therapist in the community. Return to the emergency department if you develop chest pain, shortness of breath or difficulty breathing, fevers, dizziness or lightheadedness, fainting or any other new or concerning symptoms. Prescriptions: New hydroxyzine HCl 25 mg tablet 25 mg PO TID PRN (Reason: anxiety) Qty: 14 0RF No Action prenat.vits,karina,[id number] Tablet 1 tab PO BEDTIME Qty: 30 0RF Stand Alone Forms: Work/School Release Interventions: ED Discharge Assessment Last Done: 09/22/24 11:49 Discharge Date/Time: 09/22/24 11:50 Print Language: Angolan
[2024-09-22 10:43] LABS: MANUAL DIFF FLAG NO
[2024-09-22 10:44] LABS: Basophils Percent Auto 0.6 % (0-2); Eosinophils Absolute Auto 0.2 X10*3/uL (0.0-0.4); Eosinophils Percent Auto 2.8 % (0-4); Hematocrit 35.4 % (37.0-47.0); Hemoglobin 11.2 g/dl (12.0-16.0); Imm Gran Abs Auto 0.01 X10*3/uL (0.00-0.03); Imm Gran Pct Auto 0.2 % (0.0-0.4); Lymphocytes Absolute Auto 2.4 X10*3/uL (1.2-4.9); Lymphocytes Percent Auto 43.6 % (20-40); Mean Corpuscular HGB Conc 31.6 g/dl (31.0-35.0); Mean Corpuscular Hemoglobin 25.1 pg (27.0-33.0); Mean Corpuscular Volume 79.4 fL (80.0-98.0); Monocytes Absolute Auto 0.5 X10*3/uL (0.1-1.2); Monocytes Percent Auto 8.7 % (2-11); Neutrophils Absolute Auto 2.4 x10*3/uL (2.0-8.3); Neutrophils Percent Auto 44.1 % (45-73); Platelet Count 210 X10*3/uL (160-400); Red Blood Count 4.46 X10*6/uL (4.20-5.50); Red Cell Distribution Width 15.4 % (11.0-16.0); White Blood Count 5.4 X10*3/uL (4.8-10.8)
[2024-09-22 11:06] LABS: Alanine Aminotransferase 13 U/L (0-31); Albumin Level 4.5 g/dL (3.5-5.0); Alkaline Phosphatase 42 U/L (39-117); Anion Gap 12 (12-20); Aspartate Amino Transferase 21 U/L (5-31); Bilirubin Total 0.5 mg/dL (0.0-1.0); Blood Urea Nitrogen 8 mg/dL (9-16); Calcium 9.1 mg/dL (8.4-10.2); Carbon Dioxide 21 mmol/L (22-29); Chloride 110 mmol/L (96-108); Estimated Glomerular Filt Rate > 60; Glucose Random 89 mg/dL (60-115); Magnesium 1.9 mg/dL (1.6-2.6); Potassium 3.7 mmol/L (3.3-5.1); Sodium 139 mmol/L (135-145); Total Protein 6.7 g/dL (6.5-8.0)
[2024-09-22 11:20] LABS: HCG Quantitative < 2 mIU/mL; TSH reflex Free T4 3.07 uIU/mL (0.32-4.0)
[2024-09-22 11:49] VITALS: BP 116/77; PULSE 66; RESP 16; TEMP 36.9; O2SAT 100
--- OUTSIDE RECORDS SUMMARY | 2024-09-22 11:59 | XMS_ITS | Clinical Summary ---
Demographics Address [address] [place] [address] Mobile Phone Email Address Preferred Language en Marital Status Single Jewish Affiliation Unknown Race Other Race Ethnic Group Unknown Author Organization [employer] Address [address] [facility] [address] [place] [address] Care Team Providers Care Pesticide Chemist Name Role Phone RamiroSirena enciso DO Primary Care Provider Allergies Active Allergy Reactions Criticality Noted Date Comments Gramineae Pollens 02/08/2024 Mangifera Indica High 05/23/2021 Other Reaction(s): Throat irritation AngioedemaMANGO Shellfish Allergy High 02/08/2024 Angioedema Active Problems Problem Noted Date Diagnosed Date HSV-2 seropositive 02/08/2024 History of pre-eclampsia 02/08/2024 Anemia 02/08/2024 Moderate episode of recurrent major depressive d isorder 02/08/2024 Overview (02/08/2024): During IBH Consult Colleen presenting with depressed mood, crying spells , irritable mood, change in appetite or weight reduce appetite, changes in sleep difficulty falling asleep, psychomotor agitation, fatigue/loss of energy and anxiety/worry associated to restlessness and/or feeling keyed-up/On edge , easily fatigued , difficulty concentrating and/or mind going blank , irritability, and muscle tension ; for a period of 18+ mo, for most or all symptoms in the context of went into labor on 11/2023, had twins that had to stay in nicu for 3 weeks, concern about her ability to care for them, concern about second son who might have autism and is in a waiting list for the assessment . PLAN: (check all that apply) New/Additional Services needed Off-site services for Behavioral Health Integration Plan External OP therapy referral Patient Self Plan Patient to utilize skills provided in intervention , [facility], and Patient to engage in OP therapy Gallstones 02/08/2024 Anxiety 02/08/2024 Mild intermittent asthma 05/06/2017 Encounters Date Type Department Care Team Description 09/22/2024 Orders Only GENERIC EXTERNAL DATA DEPARTMENT Provider, Generic External Data from Last 3 Months Immunizations Immunization Administration Dates Next Due DTaP 09/28/2007, 7,10/19/2006,07/20,02/03/2006 HPV 9-Valent 06/11/2016,09/27/2012 HPV, Quadrivalent 06/11/2016, 3,2012,12/10,12/13/2009 Hep A, Unspecified 06/11/2016,12/10/2010, 010 Hep A, ped/adol, 2 dose 06/11/2016,12/10/2010, Hep B, Adolescent or Pediatric 11/03/2006,2006,02/13/2006 IPV 06/11/2016, 1,11/03/2006,07/20,02/13/2006 Influenza injectable quadriv alent preservative free 03/18/2016 Influenza, IIV3, injectable 03/18/2016 MMR 07/20/2006,02/13/2006 Meningococcal ACWY, unspecified 09/27/2012,07/09 Meningococcal MCV4P ACYW-135 09/27/2012,07/10/19 13 TD (adult), 2 Lf tetanus tox oid, preservative free, adsorbed 09/28/2007 Td (adult), unspecified 09/28/2007 Tdap 07/11/2022, 9,09/27/2012,07/09 Varicella 06/12/2016,08/28/2008,07/20/2006 Family History Medical History Relation Name Comments Hyperlipidemia Maternal Grandmother Hypertension Maternal Grandmother Anxiety disorder Mother Asthma Mother's Brother Heart disease Paternal Grandmother Hyperlipidemia Sister Relation Name Status Comments Maternal Grandmother Mother Mother's Brother Paternal Grandmother Sister Social History Tobacco Use Types Packs/Day Years Used Date Smoking Tobacco: Never Smokeless Tobacco: Never Tobacco Cessation:Counseling Given: Not Answered Alcohol Use Standard Drinks/Week Comments Never 0 (1 standard drink = 0.6 oz pur e alcohol) Depression Answer Date Recorded Patient Health Questionnaire-9 Score 11 02/08/2024 Patient Health Questionnaire-9 Score 11 02/08/2024 Last PHQ-9: Questionnaire Data Not on file 1 04/09/2023 Housing Stability Answer Date Recorded What is your housing situation today? I have bridgette lora 02/01/[address] you li ve. Do you have problems with any of the following? None of the above 02/01/2024 Food Insecurity Answer Date Recorded Within the past 12 months, y ou worried that your food would run out before you got money to buy more: Never True 02/01/2024 Within the past 12 months,th e food you bought just didn't last and you didn't have enough money to get more: Never True 06/2023 Transportation Answer Date Recorded In the past 12 months, has l ack of transportation kept you from medical appts, meetings, work or from getting things needed for daily living? No 02/01/2024 Utilities Answer Date Recorded In the past 12 months, has t he electric, gas, oil or water company threatened to shut off services in your home? No 02/01/2024 Depression Answer Date Recorded Patient Health Questionnaire-2 Score 1 02/08/2024 Internet Access Answer Date Recorded Internet Access Q1 Yes 02/01/2024 Internet Access Q2 Not on file 02/01/2024 Comments Unknown Sex and Gender Information Value Date Recorded Sex Assigned at Female 01/27/2022 10:20 AM EDT Legal Sex Female 10:20 AM EDT Gender Identity Choose not to disclose 10:20 AM EDT Sexual Orientation Choose not to disclose 2021 10:20 AM EDT Last Filed Vital Signs Vital Sign Reading Time Taken Comments Blood Pressure 112/64 02/08/2024 11:03 AM EST Pulse 68 02/08/2024 11:03 AM EST Temperature 36.2 C (97.1 F) 02/08/2024 11:03 AM EST Respiratory Rate - - Oxygen Saturation - - Inhaled Oxygen Concentration - - Weight 50.3 kg (111 lb) 02/08/2024 11:03 AM EST Height 162.6 cm (5' 4 ) 02/08/2024 11:03 AM EST Body Mass Index 19.05 02/08/2024 11:03 AM EST Plan of Treatment Health Maintenance Due Date Last Done Comments Disability Screening 2000 Alcohol/Substance Use Screening 2012 Family Planning (PISQ) 07/10/2015 Pneumococcal Vaccine: Pediatrics (0 to 5 Years) and At-Risk Patients (6 to 49) Years (1 of 2 - PCV) 07/10/2019 Pap Smear 2021 COVID-19 Vaccine ( - season) 2023 Depression Monitoring 08/07/2024 02/08/2024, 024 Influenza Vaccine (Season Ended) 2024 03/18/2016, 03/18/2016 SDOH Screening 01/31/2025 02/01/2024 Tobacco Screening 02/07/2025 02/08/2024 DTaP/Tdap/Td Vaccines (9 - Td or Tdap) 07/11/2032 07/11/2022, 10/27/2018, 09/27/2012, Additional history exists Zoster Vaccines (1 of 2) 2050 RSV Patients and Patients Aged 60 years or older (1 - 1-dose 75+ series) 07/10/2075 Hepatitis B Vaccines Completed 11/03/2006, 07/20/2006, 02/13/2006 Meningococcal Vaccine Aged Out 09/27/2012 , 09/27/2012, 2012, Additional history exists No longer eligible based on patient's age to complete this topic HPV Vaccines Completed 06/11/2016, 05/28, 09/27/2012, Additional history exists Hepatitis A Vaccines Completed 06/11/2016, 06/11/2016, 12/10/2010, Additional history exists IPV Vaccines Completed 06/11/2016, 11/28, 11/03/2006, Additional history exists HIV Screening Completed 05/16/2020 Hepatitis C Screening Completed 05/16/2020 HIB Vaccines Aged Out No longer eligi ble based on patient's age to complete this topic Meningococcal B Vaccine Aged Out No l onger eligible based on patient's age to complete this topic RSV under 20 months Aged Out No longe r eligible based on patient's age to complete this topic Rotavirus Vaccines Aged Out No longer eligible based on patient's age to complete this topic Procedures Procedure Name Priority Date/Time Associated Diagnosis Comments HCG, TOTAL, QN Routine 09/22/2024 10:36 AM EDT TSH W/REFLEX TO FT4 Routine 09/22/2024 1 0:36 AM EDT MAGNESIUM Routine 09/22/2024 10:36 AM EDT COMPREHENSIVE METABOLIC PANEL Routine 09/22/2024 10:36 AM EDT CBC WITH AUTO DIFFERENTIAL Routine 09/22/2024 10:36 AM EDT ZZZ HISTORICAL HEPATITIS C ANTIBODY Routine 05/16/2020 9:50 AM EST from Last 3 Months or Most Recently Relevant to Health Maintenance Results * TSH with Reflex to Free T4 (09/22/2024 10:36 AM EDT) TSH reflex Free T4 3.07 0.32 - 4.0 uIU/mL [facility] 09/22/2024 10:3 6 AM EDT 09/22/2024 10:42 AM EDT us Generic External Data Provider LAB BLOOD ORDERAB LES Final Result [facility] [address] [place] [phone] * (ABNORMAL) CBC auto differential (09/22/2024 10:36 AM EDT) White Blood Count 5.4 4.8 - 10.8 X10*3/uL [facility] Red Blood Count 4.46 4.20 - 5.50 X10*6/uL [facility] Hemoglobin 11.2(L) 12.0 - 16.0 g/dl [facility] Hematocrit 35.4(L) 37.0 - 47.0 % [facility] Mean Corpuscular Volume 79.4(L) 80.0 - 98.0 fL [facility] Mean Corpuscular Hemoglobin 25.1(L) 27.0 - 33.0 pg [facility] Mean Corpuscular HGB Conc 31.6 31.0 - 35.0 g/dl [facility] Red Cell Distribution Width 15.4 11.0 - 16.0 % [facility] Platelet Count 210 160 - 400 X10*3/uL [facility] Mean Platelet Volume 10.0 9.4 - 12.3 fL [facility] Neutrophils Percent Auto 44.1(L) 45 - 73 % [facility] Imm Gran Pct Auto 0.2 0.0 - 0.4 % [facility] Lymphocytes Percent Auto 43.6(H) 20 - 40 % [facility] Monocytes Percent Auto 8.7 2 - 11 % [facility] Eosinophils Percent Auto 2.8 0 - 4 % [facility] Basophils Percent Auto 0.6 0 - 2 % [facility] NRBC Pct Auto 0.0 0.0 - 0.2 /100WBC [facility] Neutrophils Absolute Auto 2.4 2.0 - 8.3 x10*3/uL [facility] Imm Gran Abs Auto 0.01 0.00 - 0.03 X10*3/uL [facility] Lymphocytes Absolute Auto 2.4 1.2 - 4.9 X10*3/uL [facility] Monocytes Absolute Auto 0.5 0.1 - 1.2 X10*3/uL [facility] Eosinophils Absolute Auto 0.2 0.0 - 0.4 X10*3/uL [facility] Basophils Absolute Auto 0.0 0.0 - 0.2 X10*3/uL [facility] NRBC Abs Auto 0.000 0.0 - 0.012 X10*3/uL [facility] 09/22/2024 10:3 6 AM EDT 09/22/2024 10:42 AM EDT us Generic External Data Provider LAB BLOOD ORDERAB LES Final Result Performing Organization Address [facility] de Phone Number [facility] [address] [place] [phone] * hCG, Total, Quantitative (09/22/2024 10:36 AM EDT) HCG Quantitative <2 mIU/mL [facility] Comment:Weeks post LMP Appro ximate hCG(Last Menstrual Period) Range (mIU/ml)3 - 4 weeks 9 - 1304 - 5 weeks 75 - 2,6005 - 6 weeks 850 - 20,8006 - 7 weeks 4000 - 100,2007 - 12 weeks 11,500 - 289,65200 - 16 weeks 18,300 - 137,95049 - 29 weeks (2nd trimester) 1,400 - 53,77320 - 41 weeks (3rd trimester) 940 - 60,000The Mcelroy B- hCG assay is used for the early detection ofpregnancy; it cannot be used to diagnose any conditionunrelated to . If a B-hCG level is not supportedby the clinical evidence, results should be confirmed by analternative method (qualitative urine hCG, for example). 09/22/2024 10:3 6 AM EDT 09/22/2024 10:42 AM EDT us Generic External Data Provider LAB BLOOD ORDERAB LES Final Result Performing Organization Address [facility] Co de Phone Number [facility] [address] [place] [phone] * Magnesium (09/22/2024 10:36 AM EDT) Magnesium 1.9 1.6 - 2.6 mg/dL [facility] 09/22/2024 10:3 6 AM EDT 09/22/2024 10:42 AM EDT Generic External Data Provider LAB BLOOD ORDERAB LES Final Result Performing Organization Address [facility]/State/ZIP Co de Phone Number [facility] [address] [place] [phone] * (ABNORMAL) Comprehensive Metabolic Panel (09/22/2024 10:36 AM EDT) Sodium 139 135 - 145 mmol/L [facility] Potassium 3.7 3.3 - 5.1 mmol/L [facility] Chloride 110(H) 96 - 108 mmol/L [facility] Carbon Dioxide 21(L) 22 - 29 mmol/L [facility] Anion Gap 12 12 - 20 [facility] Urea Nitrogen (BUN) 8(L) 9 - 16 mg/dL [facility] Creatinine, Serum 0.67 0.5 - 1.4 mg/dL [facility] Creatinine Clr Calc Pharmacy 101.0 [facility] Comment:Provided height and weight: 162.56 cm,49.442 kg.eGFR (calculated from the MDRD study equation) and eCrCl(calculated from the Cockcroft-Gault equation) are based ondifferent parameters and may not yield comparable results.If eCrCl result is absurd, please check patient'sheight/weight. Estimated Glomerular Filt Rate >60 [facility] Comment:Chronic Kidney Disea se: Estimated GFR < 60 mL/min/[id number] Kidney Disease: Estimated GFR < 15 mL/min/1.73m2 Glucose 89 60 - 115 mg/dL [facility] Calcium 9.1 8.4 - 10.2 mg/dL [facility] Bilirubin, Total 0.5 0.0 - 1.0 mg/dL [facility] Aspartate Amino Transferase 21 5 - 31 U/L [facility] Alanine Aminotransferase 13 0 - 31 U/L [facility] Total Protein 6.7 6.5 - 8.0 g/dL [facility] Albumin Level 4.5 3.5 - 5.0 g/dL [facility] Alkaline Phosphatase 42 39 - 117 U/L [facility] 09/22/2024 10:3 6 AM EDT 09/22/2024 10:42 AM EDT us Generic External Data Provider LAB BLOOD ORDERAB LES Final Result Performing Organization Address [facility]/ZIP Co de Phone Number [facility] [address] [place] [phone] * Hepatitis C Antibody (05/16/2020 9:50 AM EST) Hepatitis C Antibody Nonreactive Nonreactive [facility] Comment: Antibodies to HCV not detected; does not exclude early acute HCV infection. HIV AB/AG Nonreactive Nonreactive [facility] Comment: HIV-1 p24 Ag and/or HIV-1/HIV-2 Ab not detected. A test result that is nonreactive does not exclude the possibility of exposure to or infection with HIV-1 and/or HIV-2. Nonreactive results in this assay for individuals with prior exposure to HIV-1 and/or HIV-2 may be due to antigen and antibody levels that are below the limit of detection of this assay. The Mcelroy Flotation Tender HIV Ag/Ab Combo assay result and supplemental assay results should be interpreted in conjunction with the patient's clinical presentation, history and other laboratory results. If the results are inconsistent with clinical evidence, additional testing is suggested to confirm the result. Hepatitis B Surface Antigen Negative Negative [facility] 05/16/2020 9:50 AM EST us Historical Provider MD HISTORICAL/NON ORDERABLE LABS Final Result Performing Organization Address City/[facility] Co de Phone Number [facility] [address] from Last 3 Months or Most Recently Relevant to Health Maintenance [facility] Care Teams Pesticide Chemist Relationship Specialty Start Date End Date Sirena Burger DO [address] [place] [phone] PCP - General Family Medicine 01/20/24
== END 2024-09-22 11:50 | disposition home or self-care (01) ==
PROVIDERS: Registered Nurse Emergency; Emergency Provider Emergency Medicine
DX: F41.9 Anxiety disorder, unspecified (principal); I49.9 Cardiac arrhythmia, unspecified; R07.89 Other chest pain; R00.2 Palpitations
CPT/HCPCS: 36415; 80053; 83735; 84443; 84702; 85025; 93005; 99283

== ENCOUNTER → 2024-09-22 09:52 | Outpatient (BNV) | payer MEDICAID, SELFPAY | PROVIDERS: Emergency Provider Emergency Medicine; Visit Provider Internal Medicine | DX: R00.0 Tachycardia, unspecified (principal) | CPT/HCPCS: 93010 ==

== ENCOUNTER 2024-10-06 06:13 | Emergency (ER) | payer MEDICAID, SELFPAY ==
[2024-10-06 06:15] VITALS: BP 136/79; PULSE 66; RESP 20; TEMP 36.3; O2SAT 99; BMI 18.0
--- NOTE | 2024-10-06 06:20 | ECG_ITS ---
Test Reason : dizziness Blood Pressure : */* mmHG Vent. Rate : 74 BPM Atrial Rate : 74 BPM P-R Int : 136 ms QRS Dur : 70 ms QT Int : 364 ms P-R-T Axes : 78 74 64 degrees QTcB Int : 404 ms Normal sinus rhythm Normal ECG When compared with ECG of 22-Sep-2024 09:53, No significant change was found Referred By: Generic ED Physician Electronically Signed By: Mark Santana
[2024-10-06 06:31] LABS: MANUAL DIFF FLAG NO
[2024-10-06 06:35] LABS: Hematocrit 36.9 % (37.0-47.0); Hemoglobin 11.3 g/dl (12.0-16.0); Imm Gran Abs Auto 0.01 X10*3/uL (0.00-0.03); Imm Gran Pct Auto 0.2 % (0.0-0.4); Lymphocytes Absolute Auto 3.1 X10*3/uL (1.2-4.9); Mean Corpuscular HGB Conc 30.6 g/dl (31.0-35.0); Mean Corpuscular Hemoglobin 24.6 pg (27.0-33.0); Mean Corpuscular Volume 80.4 fL (80.0-98.0); NRBC Abs Auto 0.000 X10*3/uL (0.0-0.012); NRBC Pct Auto 0.0 /100WBC (0.0-0.2); Platelet Count 247 X10*3/uL (160-400); Red Blood Count 4.59 X10*6/uL (4.20-5.50); White Blood Count 5.5 X10*3/uL (4.8-10.8)
[2024-10-06 06:51] LABS: Alanine Aminotransferase 17 U/L (0-31); Albumin Level 4.8 g/dL (3.5-5.0); Alkaline Phosphatase 42 U/L (39-117); Anion Gap 12 (12-20); Aspartate Amino Transferase 21 U/L (5-31); Blood Urea Nitrogen 8 mg/dL (9-16); Calcium 9.2 mg/dL (8.4-10.2); Carbon Dioxide 24 mmol/L (22-29); Chloride 107 mmol/L (96-108); Creatinine Clr Calc Pharmacy 95.9; Estimated Glomerular Filt Rate > 60; Potassium 3.7 mmol/L (3.3-5.1); Sodium 139 mmol/L (135-145); Total Protein 6.9 g/dL (6.5-8.0)
--- NOTE | 2024-10-06 07:19 | PC.NURSE ---
Pt comes to ED today with complaint of dizziness/sensation of room spinning beginning at 0300 this morning. She reports she has noticed and increase in her HR with tremors and blacking out after eating and standing recently. States she was seen here about 1-2 weeks ago and given Rx for anxiety but has not taken any of it. Pt reports a concern for POTS given her sxs. She denies n/v and GONZALES; she reports good appetite and has recently increased her electrolyte consumption. Pt is A&Ox3 VSS, afebrile Skin is warm and dry Breaths and speech are even and unlabored. Facial symmetry noted. Pt denies n/v and GONZALES She reports good appetite and has recently increased her electrolyte consumption. NAD noted at this time. Pt is resting with significant other at bedside. Blood work and EKG completed in triage Awaiting ED provider.
[2024-10-06 08:56] LABS: Appearance Urine Clear; Glucose Urine UA Negative (Negative); PH 6.5 (5.0-9.0); Specific Gravity - Urine 1.010 (1.005-1.025)
[2024-10-06 08:57] LABS: UPreg QC Valid YES
--- NOTE | 2024-10-06 10:00 | ED_ITS ---
HPI - General Adult General Chief complaint: Dizziness Stated complaint: Dizziness Time Seen by Provider: 10/06/24 09:31 Source: patient, RN notes reviewed and old records reviewed Mode of arrival: ambulatory Limitations: no limitations History of Present Illness ED Provider: Mi MONSIVAIS narrative: 24-year-old female presents for evaluation of dizziness. She reports that her symptoms seemed to be worse when she is lying down and improved with standing. She has been having these episodes since last November when she gave to twins She reports that she has mentioned to her primary doctor but has not had any further testing and was told it was ?anxiety. ? The patient states that her heart rate tends to elevate when she stands up as well She is concerned with both vertigo and POTS. She denies any chest pain or shortness of breath pain Denies any headaches She has no other complaints or concerns at this time Related Data Previous Rx's ?Medication ?Instructions ?Recorded prenat.vits,karina,dwn-ifct-lxnyi 1 tab PO BEDTIME Pregna ncy #30 tabs 01/15/22 hydroxyzine HCl 25 mg tablet 25 mg PO TID PRN anxiety #14 tabs 09/22/24 meclizine 25 mg tablet 25 mg PO TID PRN dizziness # 20 tabs 10/06/24 Allergies Allergy/AdvReac Type Severity Reaction Status Date / Time merced (MERCED) Allergy Unknown ANGIOEDEMA Verified 10/06/24 06:17 pollen extracts (POLLEN) Allergy Unknown ITCHY EYES Verified 10/06/24 06:17 SEAFOOD Allergy Unknown ANAPHYLAXIS Uncoded 10/06/24 06:17 Review of Systems 2 Constitutional: Constitutional: Denies body ache(s), Denies chills, Denies fever(s) and Denies headache(s) Eyes: Eyes: Denies blurry vision and Denies exophthalmos ENT: Reports dizziness and Denies headache(s) Cardiovascular: Cardiovascular: Denies chest pain and Denies dyspnea on exertion Respiratory: Respiratory: Denies cough and Denies dyspnea on exertion Gastrointestinal: Gastrointestinal: Denies abdominal pain, Denies nausea and Denies vomiting Musculoskeletal: Musculoskeletal: Denies back pain Integumentary/Breasts: Skin/Breast: Denies rash Neurologic: Reports dizziness and Denies headache(s) Psychiatric: Psychiatric: Denies anxiety PMFSH Past Medical History Medical History History of asthma HSV-2 infection Family History Family History Maternal Grandmother CVD (cardiovascular disease) Maternal Grandfather History of heart attack Paternal Grandmother No problems noted. Maternal Uncle History of colon cancer Social History Social History Household Members: Significant Other and Children Housing: Apartment Alcohol intake: never Patient Tobacco Use Status: Never used Tobacco Smoked in Last 30 Days: No Use of substances other than those prescribed or required for medical reasons: No Advance Directives: No Advance Directives Information Provided: Yes Patient : No Current occupational status: unemployed Sexual orientation: Straight/Heterosexual Gender identity: Female Physical Exam ED Vital Signs: Vital Signs - 24 hr 10/06/24 06:15 10/06/24 10:09 10/06/24 10:10 Temperature 97.3 F Pulse Rate 66 77 78 Respiratory Rate 20 Blood Pressure 136/79 138/80 145/94 H Pulse Oximetry 99 Oxygen Delivery Method Room Air 10/06/24 10:10 Temperature Pulse Rate 88 Respiratory Rate Blood Pressure 149/107 H Pulse Oximetry Oxygen Delivery Method BMI result Body Mass Index 18.0 Const General: healthy appearing, comfortable, no acute distress, alert and awake Nutritional Appearance: well nourished Orientation/consciousness: patient oriented x3 HENMT Head: Yes normocephalic and Yes atraumatic Eyes Eyelids: Yes eyelids normal Conjunctivae: conjunctivae normal Sclerae: sclerae normal Corneas: corneas normal Pupils: Equal, round and reactive pupils present EOM: EOMs intact bilaterally Neck Neck: Yes full ROM Resp Effort & Inspection: normal respiratory effort, able to speak in complete sentences and not labored Cardio Rate: regular rate Rhythm: regular rhythm GI Inspection: No distended Palpation (GI): Soft to palpation, not firm, nontender, no guarding and not rigid Skin General skin exam: elasticity normal Neuro General: patient oriented x3 Cranial nerves: Yes CN's II-XII intact bilaterally, Yes Equal, round and reactive pupils present and Yes Bilaterally intact EOM present Cognition (Neuro): normal cognition Motor exam (neuro): 5/5 motor strength present throughout Coordination: prszib-uj-tinz test normal and gfqf-ni-udwg test normal Extrem Other: Moving all extremities well without any obvious deformities Course Reevaluation(s) Reevaluation #1: Patient re-evaluated after meclizine, she reports feeling somewhat better. Her orthostatics were negative but her heart rate did jump by about 12 points. We will discharge the patient with meclizine as this did seem to help. We will refer her to ENT for tilt-table testing and cardiology for further evaluation of her dizziness and tachycardia when standing. She reports her heart rate jumps from 75-113 at home, though this was not visualize in the ER today Time: 10:43 Medications Administered Discontinued Medications Generic Name Dose Route Start Last Admin Trade Name Freq PRN Reason Stop Dose Admin Meclizine HCl 50 mg 10/06/24 09:59 10/06/24 10:18 Meclizine Hcl 25 Mg Tablet PO 10/06/24 10:00 50 mg ONCE ONE Administration Medical Decision Making Medical Decision Making [facility] Narrative: 24-year-old female presents for evaluation of intermittent episodes of dizziness last 10 months. She denies any headaches, chest pain. EKG is nonischemic. Her vital signs are normal limits, no evidence of dehydration or SAPPHIRE. Your symptoms may be related to benign paroxysmal positional vertigo that may have been triggered by her from last November as her symptoms started around that time. I have a low suspicion for central vertigo. The patient has a reassuring neurologic exam. She was concerned about her blood pressure that red elevated on her automatic machine of 121/94. I reassured her that this blood pressure is not terribly concerning though the diastolic is slightly above normal. She does not carry a diagnosis of hypertension. She may follow up with his up with her primary doctor. We will check orthostatics we will attempt to treat with meclizine. There was no suspicion for ACS Differential Diagnosis Differential Diagnoses: The differential diagnosis associated with the presentation includes Dehydration Orthostasis SAPPHIRE Peripheral vertigo Central vertigo Lab Data [facility] Lab Attestation statement: I reviewed the patient's lab results. No leukocytosis. The patient does have a mild anemia with a hemoglobin of 11.3 being at the level of her baseline going back to 2020. No significant chemistry abnormalities warranting intervention. 10/06/24 06:25 10/06/24 06:25 Labs: Lab Results 10/06/24 10/06/24 Range/Units 06:25 08:49 WBC 5.5 (4.8-10.8) X10*3/uL RBC 4.59 (4.20-5.50) X10*6/uL Hgb 11.3 L (12.0-16.0) g/dl Hct 36.9 L (37.0-47.0) % MCV 80.4 (80.0-98.0) fL MCH 24.6 L (27.0-33.0) pg MCHC 30.6 L (31.0-35.0) g/dl RDW 15.5 (11.0-16.0) % Plt Count 247 (160-400) X10*3/uL MPV 10.0 (9.4-12.3) fL Immature Gran % (Auto) 0.2 (0.0-0.4) % Neut % (Auto) 32.3 L (45-73) % Lymph % (Auto) 56.3 H (20-40) % [place] % (Auto) 7.6 (2-11) % Eos % (Auto) 3.1 (0-4) % Baso % (Auto) 0.5 (0-2) % Lymph # (Auto) 3.1 (1.2-4.9) X10*3/uL [place] # (Auto) 0.4 (0.1-1.2) X10*3/uL Eos # (Auto) 0.2 (0.0-0.4) X10*3/uL Baso # (Auto) 0.0 (0.0-0.2) X10*3/uL Abs Immat Gran (auto) 0.01 (0.00-0.03) X10*3/uL Absolute Neuts (auto) 1.8 L (2.0-8.3) x10*3/uL Absolute Nucleated RBC 0.000 (0.0-0.012) X10*3/uL Nucleated RBC % (auto) 0.0 (0.0-0.2) /100WBC Sodium 139 (135-145) mmol/L Potassium 3.7 (3.3-5.1) mmol/L Chloride 107 (96-108) mmol/L Carbon Dioxide 24 (22-29) mmol/L Anion Gap 12 (12-20) BUN 8 L (9-16) mg/dL Creatinine 0.68 (0.5-1.4) mg/dL Estim Creat Clear Calc 95.9 Estimated GFR > 60 Random Glucose 94 (60-115) mg/dL Calcium 9.2 (8.4-10.2) mg/dL Total Bilirubin 0.3 (0.0-1.0) mg/dL AST 21 (5-31) U/L ALT 17 (0-31) U/L Alkaline Phosphatase 42 (39-117) U/L Total Protein 6.9 (6.5-8.0) g/dL Albumin 4.8 (3.5-5.0) g/dL Urine Color Yellow Urine Appearance Clear Urine pH 6.5 (5.0-9.0) Ur Specific [place] 1.010 (1.005-1.025) Urine Protein Negative (Neg-Trace) mg/dL Urine Glucose (UA) Negative (Negative) mg/dL Urine Ketones Negative (Negative) mg/dL Urine Blood Negative (Negative) Urine Nitrite Negative (Negative) Ur Leukocyte Esterase Negative (Negative) Urine Test NEGATIVE (NEGATIVE) Independent Interpretation I performed an independent interpretation of an: EKG Interpretation: Normal sinus rhythm with a rate of [address] changes. Nondiagnostic EKG Discharge Plan Discharge Clinical Impression: Dizziness Patient Disposition: Home, Self-Care Instructions: Vertigo (ED), Dizziness (ED) Additional Instructions: Your workup in the ER today was reassuring. It is possible that your symptoms are related to vertigo. You may use meclizine as needed for further dizziness. You may follow up with the ear nose and throat testing for tilt-table testing to officially diagnose or rule out vertigo. You may also follow up with cardiology for your tachycardia with standing to be evaluated for POTS Prescriptions: New meclizine 25 mg tablet 25 mg PO TID PRN (Reason: dizziness) Qty: 20 0RF No Action prenat.vits,karina,weq-zeey-wiiro Tablet 1 tab PO BEDTIME Qty: 30 0RF hydroxyzine HCl 25 mg tablet 25 mg PO TID PRN (Reason: anxiety) Qty: 14 0RF Referrals: Albert Hood [Physician, Ear, Nose, Throat] Referral Note: please evaluate for [facility] [Provider Group] Referral Note: please evaluate for POTS, dizziness and reported tachycardia when standing Stand Alone Forms: Work/School Release Print Language: Nepali
[2024-10-06 10:09] VITALS: BP 138/80; PULSE 77
[2024-10-06 10:10] VITALS: BP 145/94; BP 149/107; PULSE 78; PULSE 88
[2024-10-06 11:15] VITALS: BP 131/84; PULSE 79; RESP 16; TEMP -17.7; TEMP 0; O2SAT 100
== END 2024-10-06 11:16 | disposition home or self-care (01) ==
PROVIDERS: Emergency Medicine; Emergency Provider Emergency Medicine; PCP Family Medicine
DX: R42 Dizziness and giddiness (principal); Z79.899 Other long term (current) drug therapy; R00.0 Tachycardia, unspecified
CPT/HCPCS: 36415; 80053; 81003; 81025; 85025; 93005; 99283; 99285

== ENCOUNTER → 2024-10-06 06:20 | Outpatient (BNV) | payer MEDICAID, SELFPAY | PROVIDERS: Emergency Provider Emergency Medicine; PCP Family Medicine; Visit Provider Internal Medicine Cardiovascular Disease | DX: R42 Dizziness and giddiness (principal) | CPT/HCPCS: 93010 ==

== ENCOUNTER 2024-10-12 07:29 | Emergency (ER) | payer MEDICAID, SELFPAY ==
[2024-10-12 07:31] VITALS: BP 123/85; PULSE 78; RESP 16; TEMP 36.6; O2SAT 98; BMI 18.4
--- NOTE | 2024-10-12 07:35 | ECG_ITS ---
Test Reason : dizziness Blood Pressure : */* mmHG Vent. Rate : 77 BPM Atrial Rate : 77 BPM P-R Int : 130 ms QRS Dur : 58 ms QT Int : 352 ms P-R-T Axes : 60 70 60 degrees QTcB Int : 398 ms Normal sinus rhythm with sinus arrhythmia Normal ECG When compared with ECG of 06-Oct-2024 06:21, No significant change was found Referred By: Generic ED Physician Electronically Signed By: DELGADO SÁNCHEZ
[2024-10-12 07:53] LABS: MANUAL DIFF FLAG NO
[2024-10-12 07:58] LABS: Appearance Urine Clear; Glucose Urine UA Negative (Negative); PH 6.0 (5.0-9.0); Specific Gravity - Urine 1.015 (1.005-1.025); UPreg QC Valid YES
[2024-10-12 08:05] LABS: Hematocrit 36.2 % (37.0-47.0); Hemoglobin 11.3 g/dl (12.0-16.0); Imm Gran Abs Auto 0.01 X10*3/uL (0.00-0.03); Imm Gran Pct Auto 0.1 % (0.0-0.4); Lymphocytes Absolute Auto 2.4 X10*3/uL (1.2-4.9); Mean Corpuscular HGB Conc 31.2 g/dl (31.0-35.0); Mean Corpuscular Hemoglobin 25.3 pg (27.0-33.0); Mean Corpuscular Volume 81.0 fL (80.0-98.0); NRBC Abs Auto 0.000 X10*3/uL (0.0-0.012); NRBC Pct Auto 0.0 /100WBC (0.0-0.2); Platelet Count 255 X10*3/uL (160-400); Red Blood Count 4.47 X10*6/uL (4.20-5.50); White Blood Count 7.8 X10*3/uL (4.8-10.8)
[2024-10-12 08:10] LABS: Anion Gap 11 (12-20); Blood Urea Nitrogen 9 mg/dL (9-16); Calcium 9.7 mg/dL (8.4-10.2); Carbon Dioxide 27 mmol/L (22-29); Chloride 106 mmol/L (96-108); Creatinine Clr Calc Pharmacy 105.5; Estimated Glomerular Filt Rate > 60; Potassium 4.0 mmol/L (3.3-5.1); Sodium 140 mmol/L (135-145)
--- OUTSIDE RECORDS SUMMARY | 2024-10-12 08:23 | XMS_ITS | Clinical Summary ---
Author Organization [facility] it[facility] Address [address] [place] [address] Care Team Providers Care Engineering Surveyor Name Role Phone Unavailable Primary Care Provider Unavailabl e Social History Tobacco Use Types Packs/Day Years Used Date Smoking Tobacco: Never Assessed Comments Unknown Sex and Gender Information Value Date Recorded Sex Assigned at Not on file Legal Sex Female 8:43 PM EST Gender Identity Not on file Sexual Orientation Not on file Plan of Treatment Health Maintenance Due Date Last Done Comments Gonorrhea/Chlamydia Screening 2000 HPV Vaccines (1 - 3-dose series) 07/10/2015 DTaP,Tdap,and Td Vaccines (1 - Tdap) 07/10/2019 Hepatitis B Vaccines (1 of 3 - 19+ 3-dose series) 07/10/2019 Cervical Cancer Screening: P ap Smear 2021 HIV Screening 04/24/2023 Hepatitis C Screening 04/24/2023 Social Influencers of Health Screening 04/24/2023 COVID-19 Vaccine (1 - 2023-2 5 season) 2023 Depression Screening 03/30/2024 Influenza Vaccine (#1) 2024 HIB Vaccines Aged Out No longer eligi ble based on patient's age to complete this topic Hepatitis A Vaccines Aged Out No long er eligible based on patient's age to complete this topic IPV Vaccines Aged Out No longer eligi ble based on patient's age to complete this topic MMR Vaccines Aged Out No longer eligi ble based on patient's age to complete this topic Meningococcal ACWY Vaccine Aged Out N o longer eligible based on patient's age to complete this topic Meningococcal B Vaccine Aged Out No l onger eligible based on patient's age to complete this topic Pneumococcal Vaccine: Pediat rics (0 to 5 Years) and At-Risk Patients (6 to 49 Years) Aged Out No longer eligible b ased on patient's age to complete this topic RSV Immunization Patients Un rachell 20 months Aged Out No longer eligible b ased on patient's age to complete this topic Varicella Vaccines Aged Out No longer eligible based on patient's age to complete this topic
--- OUTSIDE RECORDS SUMMARY | 2024-10-12 08:23 | XMS_ITS | Encounter Summary ---
Demographics Address [address] [place] [address] Mobile Phone Email Address Preferred Language en Marital Status Single Mandaen Affiliation Unknown Race Other Race Ethnic Group Unknown Author Organization [employer] Address [address] [facility] [address] [place] [address] Care Team Providers Care Kettle Operator Name Role Phone Sirena Burger DO Primary Care Provider Monika Young Unavailable [phone] Lola Chavez Unavailable Reason for Visit * Reason Comments Care Coordination C3/CM Outreach Encounter Details Date Type Department Care Team (Latest Contact Info) Description 10/07/2024 Patient Outreach [facility] [address] [place] [address] Sirena Burger DO [address] [place] [address] Care Coordination (C3/CM Outreach) Social History Tobacco Use Types Packs/Day Years Used Date Smoking Tobacco: Never Passive Smoke Exposure: Never Smokeless Tobacco: Never Alcohol Use Standard Drinks/Week Comments Never 0 (1 standard drink = 0.6 oz pur e alcohol) Depression Answer Date Recorded Patient Health Questionnaire-9 Score 7 09/29/2024 Patient Health Questionnaire-9 Score 7 09/29/2024 Last PHQ-9: Questionnaire Data Not on file 0 09/29/2024 Housing Stability Answer Date Recorded What is [...] Answer Date Recorded Patient Health Questionnaire-2 Score 0 09/29/2024 Internet Access Answer Date Recorded Internet Access Q1 Yes 02/01/2024 Internet Access Q2 Not on file 02/01/2024 Comments Unknown Sex and Gender Information Value Date Recorded Sex Assigned at Female 01/27/2022 10:20 AM EDT Legal Sex Female 10:20 AM EDT Gender Identity Choose not to disclose 10:20 AM EDT Sexual Orientation Choose not to disclose 2021 10:20 AM EDT documented as of this encounter Progress Notes * Lola Chavez - 10/07/2024 11:15 AM EDT CHW Lola Chavez , placed outbound call to patient in regards to offer services. CHW introducing herself from [facility] CM Department with CHW's name, department and direct contact [phone] requesting call back. Will re-attempt to contact within 5 days. and address not confirmed. documented in this encounter Plan of Treatment Not on file documented as of this encounter Visit Diagnoses Not on filedocumented in this encounter Additional Health Concerns Assessment Noted Time PHQ-9 Depression Total Score: 7 09/30/19 25 3:29 PM EDT documented as of this encounter Care Teams Kettle Operator Relationship Specialty Start Date End Date Sirena Burger DO [address] [place] [id number] PCP - General Family Medicine 01/20/24 Monika Young Registered Nurse 10/07/24 Lola Chavez 10/07/24 documented as of this encounter
--- OUTSIDE RECORDS SUMMARY | 2024-10-12 08:24 | XMS_ITS ---
Author Name [facility] Organization Unknown Encounters Encounter Type Encounter Reason Primary Diagnosis Location Date Ambulatory [facility]. ([facility]) 04/09/2024
--- NOTE | 2024-10-12 09:01 | ED.DIZZY ---
HPI - Dizziness General Chief Complaint: Dizziness Stated Complaint: dizziness Time Seen by Provider: 10/12/24 09:01 Source: patient Mode of arrival: ambulatory Limitations: no limitations History of Present Illness ED Provider: HPI Narrative: 24-year-old otherwise healthy woman, has history of anxiety, supposed to be on medications for anxiety and has a therapist that she has not engaged with, presents with what she describes as dizziness however when you ask her what that means to her she states it is feeling of emptiness in her head , this is something she lives with constantly. She states she does not like to take her medications for anxiety. Has had no vertigo no feeling like she is going to pass out, no drug or alcohol use. No SI or HI MD elicited complaint: dizziness Related Data Previous Rx's ?Medication ?Instructions ?Recorded prenat.vits,karina,qap-epag-jhiam 1 tab PO BEDTIME #30 tabs 01/15/22 hydroxyzine HCl 25 mg tablet 25 mg PO TID PRN anxiety #14 tabs 09/22/24 meclizine 25 mg tablet 25 mg PO TID PRN dizziness #20 tabs 10/06/24 Allergies Allergy/AdvReac Type Severity Reaction Status Date / Time merced (MERCED) Allergy Unknown ANGIOEDEMA Verified 10/12/24 07:33 pollen extracts (POLLEN) Allergy Unknown ITCHY EYES Verified 10/12/24 07:33 SEAFOOD Allergy Unknown ANAPHYLAXIS Uncoded 10/12/24 07:33 Review of Systems Constitutional: Constitutional: Reports as per [facility] Past Medical History Medical History HSV-2 infection History of asthma Family History Family History Maternal Grandmother CVD (cardiovascular disease) Maternal Grandfather History of heart attack Paternal Grandmother No problems noted. Maternal Uncle History of colon cancer Social History Social History Household Members: Significant Other and Children Housing: Apartment Alcohol intake: never Patient Tobacco Use Status: Never used Tobacco Advance Directives: No Advance Directives Information Provided: Yes Do you have a plan to hurt others: No Plan Current occupational status: unemployed Sexual orientation: Straight/Heterosexual Gender identity: Female Physical Exam Vital Signs: Vital Signs: Last Vital Signs Temp 97.8 F 10/12/24 07:31 Pulse 78 10/12/24 07:31 Resp 16 10/12/24 07:31 BP 123/85 10/12/24 07:31 Pulse Ox 98 10/12/24 07:31 O2 Del Method Room Air 10/12/24 07:31 BMI result Body Mass Index 18.4 Const: Other: Gen: ?Overall well-appearing patient HEENT: PERRLA, EOMI, MMM, Neck: Supple, no LAD CV: RRR, no obvious murmurs appreciated Resp: ?No wheezing rales rhonchi no stridor moving air well Abd: ?Bowel sounds are present, no tenderness no rebound no rigidity MSK: FROM, strength 5/5 all extremities Skin: Warm, dry, intact, Neuro: ?Alert and oriented x3, moving upper and lower extremities symmetrically, no obvious facial asymmetry noted, no vertigo, no dysmetria upper or lower extremities Medical Decision Making Medical Decision Making [facility] Narrative: Please see considerations for workup as below, no evidence for peripheral vertigo, ECG without underlying dysrhythmia, blood work physical exam vital signs without any evidence for dehydration, she is PERC negative, no SI or HI, spent some time discussing with her that it would be very useful for her to actually take her medications for anxiety and engage with her therapist Differential Diagnosis Differential Diagnoses: The differential diagnosis associated with the presentation includes BPPV, arrhythmia, PE, dehydration, anxiety, SI, HI Lab Data [facility] Lab Attestation statement: I reviewed the patient's lab results. 10/12/24 07:47 10/12/24 07:47 Labs: Lab Results 10/12/24 Range/Units 07:47 WBC 7.8 (4.8-10.8) X10*3/uL RBC 4.47 (4.20-5.50) X10*6/uL Hgb 11.3 L (12.0-16.0) g/dl Hct 36.2 L (37.0-47.0) % MCV 81.0 (80.0-98.0) fL MCH 25.3 L (27.0-33.0) pg MCHC 31.2 (31.0-35.0) g/dl RDW 15.7 (11.0-16.0) % Plt Count 255 (160-400) X10*3/uL MPV 9.6 (9.4-12.3) fL Immature Gran % (Auto) 0.1 (0.0-0.4) % Neut % (Auto) 57.1 (45-73) % Lymph % (Auto) 31.4 (20-40) % [place] % (Auto) 8.9 (2-11) % Eos % (Auto) 2.1 (0-4) % Baso % (Auto) 0.4 (0-2) % Lymph # (Auto) 2.4 (1.2-4.9) X10*3/uL [place] # (Auto) 0.7 (0.1-1.2) X10*3/uL Eos # (Auto) 0.2 (0.0-0.4) X10*3/uL Baso # (Auto) 0.0 (0.0-0.2) X10*3/uL Abs Immat Gran (auto) 0.01 (0.00-0.03) X10*3/uL Absolute Neuts (auto) 4.4 (2.0-8.3) x10*3/uL Absolute Nucleated RBC 0.000 (0.0-0.012) X10*3/uL Nucleated RBC % (auto) 0.0 (0.0-0.2) /100WBC Sodium 140 (135-145) mmol/L Potassium 4.0 (3.3-5.1) mmol/L Chloride 106 (96-108) mmol/L Carbon Dioxide 27 (22-29) mmol/L Anion Gap 11 L (12-20) BUN 9 (9-16) mg/dL Creatinine 0.63 (0.5-1.4) mg/dL Estim Creat Clear Calc 105.5 Estimated GFR > 60 Random Glucose 91 (60-115) mg/dL Calcium 9.7 (8.4-10.2) mg/dL Urine Color Yellow Urine Appearance Clear Urine pH 6.0 (5.0-9.0) Ur Specific [place] 1.015 (1.005-1.025) Urine Protein Negative (Neg-Trace) mg/dL Urine Glucose (UA) Negative (Negative) mg/dL Urine Ketones Negative (Negative) mg/dL Urine Blood Negative (Negative) Urine Nitrite Negative (Negative) Ur Leukocyte Esterase Negative (Negative) Urine RBC 0-2 (0-2) /HPF Urine WBC 0-5 (0-5) /HPF Ur Squamous Epith Cells 6-10 (0-2) /HPF Urine Bacteria Trace (None Seen) Hyaline Casts 0-2 (0-2) /LPF Urine Test NEGATIVE (NEGATIVE) Independent Interpretation I performed an independent interpretation of an: EKG (72 beats per minute, otherwise normal ECG without dysrhythmia, AV orlin blocks or ST-T changes to suspect underlying ACS, my independent interpretation) Discharge Plan Discharge Clinical Impression: Anxiety reaction, Dizziness Patient Disposition: Home, Self-Care Additional Instructions: I would recommend that you do not take meclizine as you do not have any evidence for vertigo, please take medications for anxiety, please engaged with the therapist, your vital signs, physical examination, blood work EKG has been reassuring, any thoughts of harming herself any other concerns come back to the ER Prescriptions: No Action prenat.vits,karina,bia-atyb-vmark Tablet 1 tab PO BEDTIME Qty: 30 0RF hydroxyzine HCl 25 mg tablet 25 mg PO TID PRN (Reason: anxiety) Qty: 14 0RF meclizine 25 mg tablet 25 mg PO TID PRN (Reason: dizziness) Qty: 20 0RF Referrals: Sirena Burger DO [Primary Care Provider, Internal Medicine] - 2 weeks Clinical Impression: Dizziness; Anxiety reaction Print Language: Belarusian
[2024-10-12 09:46] VITALS: BP 123/85; PULSE 78; RESP 16; TEMP 36.6; O2SAT 98
== END 2024-10-12 09:46 | disposition home or self-care (01) ==
PROVIDERS: Emergency Provider Emergency Medicine; PCP Family Medicine
DX: F41.1 Generalized anxiety disorder (principal); R42 Dizziness and giddiness; I49.8 Other specified cardiac arrhythmias; Z79.899 Other long term (current) drug therapy
CPT/HCPCS: 36415; 80048; 81001; 81025; 85025; 93005; 99283; 99284

== ENCOUNTER → 2024-10-12 07:35 | Outpatient (BNV) | payer MEDICAID, SELFPAY | PROVIDERS: Emergency Provider Emergency Medicine; PCP Family Medicine; Visit Provider Internal Medicine | DX: R42 Dizziness and giddiness (principal) | CPT/HCPCS: 93010 ==

== ENCOUNTER → 2025-01-06 10:09 | Outpatient (REF) | payer MEDICAID, SELFPAY ==
--- NOTE | 2025-01-06 10:15 | CA_ITS ---
Transthoracic Echocardiogram Patient (Last, First, Middle): Colleen Mart S Gender: F Date of : 2000 Age: 24 Procedure Date: 01/06/2025 Procedure Type: Transthoracic Echocardiogram Location: OP Height: 162.56 cm Weight: 48.54 kg BSA: 1.50 m2 Heart Rate: bpm BP: 120 / 68 mmHg Anesthesia Technician: TO Referring MD: Sirena Burger DO Retirement Specialist: Driss Corona MD Symptoms: PALPITATIONS Study Quality: Adequate w contrast ECG Rhythm: Sinus Conclusions: - Overall normal study with possible pericardial cyst, consider CT chest Findings Procedure Information Contrast agent, definity, is being given per protocol without apparent complications. Left Ventricle Normal left ventricular size, thickness, and systolic function. The visually estimated ejection fraction is between 65-70%. Spectral Doppler is indicative of a normal filling pattern. Right Ventricle Normal right ventricular cavity size and systolic function. Atria Both atria are normal in size. There is no evidence of interatrial shunt. Aortic Valve Normal aortic valve structure and function. There is no aortic valve stenosis. There is no aortic valve regurgitation. Mitral Valve Normal mitral valve structure and function. There is no mitral valve regurgitation. There is no mitral valve stenosis. Pulmonic Valve The pulmonic valve is likely normal. There is trace pulmonic valve regurgitation. Tricuspid Valve Normal tricuspid valve structure. Tricuspid regurgitation envelope is inadequate for calculation of right ventricular systolic pressure. Normal right atrial pressure. There is no evidence of pulmonary hypertension. Great Vessels All visible segments of the aorta are normal in size. The visualized portions of the pulmonary artery and branches are normal. Venous The inferior vena cava is normal in size and collapses greater than 50% with inspiration. Pericardium/Pleural echo lucency pace in the posterior AV groove could represent pericardial cyst. Consider CTA imaging Measurements 2D Linear Measurements IVSd: 0.63 0.6-0.9/0.6-1.0 cm LVIDd: 4.44 3.9-5.3/4.2-5.9 cm LVIDd Index: 2.96 2.4-3.2/2.2-3.1 cm/m2 LVIDs: 3.00 2.0-3.6 cm LVPWd: 0.68 0.7-1.1 cm LA Diam: 2.50 2.7-3.8/3.0-4.0 cm LAIDs Index: 1.67 1.5-2.3 cm/m2 LV Mass: 106.37 67-162/88-224 g LV Mass Index: 70.92 43-95/49-115 g/m2 LVOT Diam: 1.90 3.0+(-)1.3 cm 2D Systolic Function EF 4C: 62.60 >55% EF 2C: 68.40 >55% EF BiP: 66.10 >55% Aortic Valve AoV Pk Juan Carlos: 1.15 AoV Mn Juan Carlos: 0.74 AoV VTI: 0.25 AoV Pk Grad: 5.00 Aov Mn Grad: 3.00 ANA Cont.VTI: 2.39 LVOT LVOT Pk Juan Carlos: 1.00 LVOT Mn Juan Carlos: 0.73 LVOT VTI: 0.21 LVOT Pk Grad: 4.00 LVOT Mn Grad: 2.00 LVOT Diam: 1.90 LVOT Area: 2.84 Right Ventricle TAPSE (mm): 18.40 TVS' Juan Carlos: 11.20 Tricuspid Valve RA Press: 8.00 Great Vessels Aorta Sinus of Valsalva: 2.44 2.0-3.5 cm Ao Asc: 2.30 2.1-3.4 cm Updated in Other Vendor System with Status of Final Driss Corona MD electronically signed on 01/06/2025 2:58:43 PM with status of Final
--- NOTE | 2025-01-06 10:16 | HM_ITS ---
Conclusion: 1. Patient was monitored for total period of 2 days 2. Baseline was normal sinus rhythm with average heart rate of 82 beats per minute 3. No significant arrhythmias or pauses noted 4. Patient marked the counter 6 times with symptoms of feeling jittery or sudden weakness while standing or strong heartbeat all correlating with sinus rhythm MTDD
== END ==
LOC: HO.CARD 10:09
PROVIDERS: PCP Family Medicine; Visit Provider Family Medicine
DX: R00.2 Palpitations (principal)
CPT/HCPCS: 93225; 93306; Q9957

== ENCOUNTER → 2025-01-06 10:15 | Outpatient (BNV) | payer MEDICAID, SELFPAY | PROVIDERS: PCP Family Medicine; Visit Provider Internal Medicine Cardiovascular Disease | DX: I31.9 Disease of pericardium, unspecified (principal); R00.2 Palpitations | CPT/HCPCS: 93306 ==

== ENCOUNTER 2025-01-19 08:23 | Outpatient (AMB) | payer MEDICAID, SELFPAY ==
[2025-01-19 08:25] VITALS: BP 90/62; PULSE 78; BMI 18.8
--- NOTE | 2025-01-19 08:25 | MHC.OFFVIS ---
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 Required: No Allergies merced (MERCED) Allergy (Unknown, Verified 01/19/25 08:26) ANGIOEDEMA pollen extracts (POLLEN) Allergy (Unknown, Verified 01/19/25 08:26) ITCHY EYES SEAFOOD Allergy (Unknown, Uncoded 01/19/25 08:26) ANAPHYLAXIS Medication List - Last Reconciled 01/19/25 by Brandi Martinez NP-C meclizine 25 mg PO TID PRN prenat.vits,karina,[id number] 1 tab PO BEDTIME HPI HPI [facility]: Details: Colleen is a 24-year-old female with no significant past medical history who was seen in the emergency room on 3 occasions recently with report of anxiety, dizziness and heart palpitations. Her cardiac evaluation showed no significant abnormalities. She was felt to have anxiety and given meclizine for possible vertigo. She was referred to Cardiology in follow-up. Today she presents for cardiology consultation. She tells me that she has been feeling better overall since her last ER visit 10/12/2024. She is learning to manage her stress and anxiety better. She has been walking routinely and finds this helps a great deal. She has also learning calming and breathing techniques which have helped. She says the lightheadedness has improved with drinking electrolyte supplements. The heart palpitations have lessened overall. At this time she has no concerning heart palpitations or rapid rates. No presyncope, syncope, falls. No chest discomfort at rest or with activity. No shortness of breath, PND, orthopnea. She tells me she did have a heart monitor though the results are not available at the time of this visit. Recent echocardiogram did show possible pericardial cyst and she is asking about this. She tells me she has 5 children age 6 and below. She delivered twins last year and since then she has been having anxiety issues. She does not drink alcohol or smoke cigarettes. No known family history of heart disease. She has never been told she had any heart problems in the past. [facility] Medical History HSV-2 infection History of asthma Family History Maternal Grandmother CVD (cardiovascular disease) Maternal Grandfather History of heart attack Heart murmur Paternal Grandmother No problems noted. Maternal Uncle History of colon cancer Social History Household Members: Significant Other and Children Housing: Apartment Alcohol intake: never Patient Tobacco Use Status: Never used Tobacco Current occupational status: unemployed Sexual orientation: Straight/Heterosexual Gender identity: Female Female Reproductive History Menstrual Age of Menarche: 13 Review of Systems Const Details: anxiety No All systems reviewed & are unremarkable except as noted in HPI and below ENT Denies dizziness Card Denies chest pain, Denies chest pain at rest, Denies chest pain with activity, Reports rapid heart rate, Denies pedal edema, Denies edema, Denies leg edema, Denies lightheadedness, Denies palpitations, Denies dyspnea, Denies dyspnea on exertion and Denies orthopnea Resp Denies cough, Denies dyspnea and Denies dyspnea on exertion GI Denies hematochezia and Denies change in stool character Musc Denies abnormal gait, Denies limited range of motion, Denies muscle cramps, Denies muscle weakness, Denies numbness, Denies radiating pain into limb, Denies stiffness and Denies tingling Neuro Denies abnormal gait, Denies dizziness, Denies numbness and Denies tingling Endo Denies palpitations Physical Exam Vital Signs: Last Vital Signs BP 90/62 01/19/25 08:25 BMI result Body Mass Index 18.8 Const General: cooperative, healthy appearing, comfortable and no acute distress Orientation/consciousness: patient oriented x3 Neck Neck: Yes normal visual inspection Resp Effort & Inspection: normal respiratory effort Auscultation: clear to auscultation bilaterally, no rales, no rhonchi and no wheezes Cardio Rate: regular rate Rhythm: regular rhythm Heart sounds: S1 normal heart sound present, S2 normal heart sound present, no gallops, no murmurs and no rubs Neuro General: patient oriented x3 Extrem General: Yes normal to inspection, No no pedal edema and No calf tenderness Psych Appearance: grossly normal Mental Status: mental status grossly normal Speech and movement: Normal speech and movement present Assessment & Plan Assessment & Plan (1) Heart palpitations: Code(s): R00.2 - Palpitations Category: Medical Plan: Prior issues with heart palpitations in the setting of anxiety. ER evaluation x3 without cardiac findings. Pulse is regular on examination today. Holter monitor done however results are not available at this visit. Recent echo does show normal EF which is reassuring. Reviewed reduction in caffeinated beverages, maintain good hydration, continue physical activity and stress reduction activities. (2) Abnormal echocardiogram findings without diagnosis: Code(s): R93.1 - Abnormal findings on diagnostic imaging of heart and coronary circulation Category: Medical Plan: Echocardiogram done 01/06/2025 showing normal with the exception of possible pericardial cyst. Reviewed this finding with her. Currently asymptomatic. Will order a noncontrast CT of the chest for further evaluation. Urine test prior to completion of CAT scan. Plan I discussed with the patient that her anxiety and dizziness are likely related to changes and stress, and that her cardiac evaluations have shown no significant abnormalities. We reviewed the importance of hydration and managing stress through lifestyle modifications. I recommended a CT scan to evaluate the fluid in the pericardial sac and reassured her that this is a precautionary measure. Orders: Orders CT chest wo IV con Today R93.1 - Abnormal findings on diagnostic imaging of heart and coronary circulation Ur Preg Test Today R93.1 - Abnormal findings on diagnostic imaging of heart and coronary circulation Patient Instructions: - Stay hydrated and limit electrolyte drinks to one per day unless engaging in strenuous activity. - Continue relaxation techniques to manage anxiety. - Engage in regular physical activity, such as walking. - Await scheduling for a CT scan to evaluate pericardial fluid. Patient was informed and verbally consented to the use of an ambient scribe for clinic note documentation during this visit. Visit time spent on chart review, interview, assessment, orders, documentation. Coding Level of Care Code New Pt Level 3 (34725) Complex EM visit Add On G2211 Diagnoses Heart palpitations R00.2 Abnormal echocardiogram findings without diagnosis R93.1 Time Spent (min) 28
--- OUTSIDE RECORDS SUMMARY | 2025-01-19 08:44 | XMS_ITS | Clinical Summary ---
Author Organization [facility] ity Address [address] [place] [address] Care Team Providers Care Data Management Analyst Name Role Phone Unavailable Primary Care Provider [...] 04/24/2023 Social Influencers of Health Screening 04/24/2023 Depression Screening 03/30/2024 COVID-19 Vaccine ( - 2023-2 5 season) 2024 Influenza Vaccine (#1) 2024 RSV Immunization Adult Patie nts (1 - 1-dose 75+ series) 07/10/2075 HIB Vaccines Aged Out No longer eligi [...]
== END 2025-01-19 08:56 | disposition home or self-care (01) ==
LOC: HO.HCS 08:23
PROVIDERS: PCP Family Medicine; Visit Provider Nurse Practitioner Family
DX: R00.2 Palpitations (principal); R93.1 Abnormal findings on diagnostic imaging of heart and coronary circulation
CPT/HCPCS: 99203

== ENCOUNTER → 2025-01-19 08:23 | Outpatient (BNVA) | payer MEDICAID, SELFPAY | PROVIDERS: PCP Family Medicine; Visit Provider Nurse Practitioner Family | DX: R00.2 Palpitations (principal); R93.1 Abnormal findings on diagnostic imaging of heart and coronary circulation | CPT/HCPCS: 99212 ==

== ENCOUNTER 2025-01-26 13:54 | Emergency (ER) | payer MEDICAID, SELFPAY ==
[2025-01-26 14:08] VITALS: BP 97/67; PULSE 76; RESP 16; TEMP 36.6; O2SAT 100; BMI 18.7
--- NOTE | 2025-01-26 14:13 | ECG_ITS ---
Test Reason : DIZZY Blood Pressure : */* mmHG Vent. Rate : 77 BPM Atrial Rate : 77 BPM P-R Int : 146 ms QRS Dur : 70 ms QT Int : 360 ms P-R-T Axes : 19 77 55 degrees QTcB Int : 407 ms Normal sinus rhythm Normal ECG When compared with ECG of 12-Oct-2024 07:36, No significant change was found Referred By: Miguel Angel Pizarro Electronically Signed By: DELGADO SÁNCHEZ
--- NOTE | 2025-01-26 14:14 | ED_ITS ---
HPI - General Adult General Chief complaint: General Medical Stated complaint: Dizziness History of Present Illness HPI narrative: patient left without completion of treatment by ED provider Related Data Previous Rx's ?Medication ?Instructions ?Recorded prenat.vits,karina,[id number] 1 tab PO BEDTIME Pregna ncy #30 tabs 01/15/22 meclizine 25 mg tablet 25 mg PO TID PRN dizziness # 20 tabs 10/06/24 Allergies Allergy/AdvReac Type Severity Reaction Status Date / Time merced (MERCED) Allergy Unknown ANGIOEDEMA Verified 01/26/25 14:12 pollen extracts (POLLEN) Allergy Unknown ITCHY EYES Verified 01/26/25 14:12 SEAFOOD Allergy Unknown ANAPHYLAXIS Uncoded 01/26/25 14:12 [facility] Past Medical History Medical History HSV-2 infection History of asthma Family History Family History Maternal Grandmother CVD (cardiovascular disease) Maternal Grandfather History of heart attack Heart murmur Paternal Grandmother No problems noted. Maternal Uncle History of colon cancer Social History Social History Household Members: Significant Other and Children Housing: Apartment Alcohol intake: never Patient Tobacco Use Status: Never used Tobacco Advance Directives: No Advance Directives Information Provided: Yes Current occupational status: unemployed Sexual orientation: Straight/Heterosexual Gender identity: Female Physical Exam ED Vital Signs: Vital Signs - 24 hr 01/26/25 14:08 Temperature 98 F Pulse Rate 76 Respiratory Rate 16 Blood Pressure 97/67 Pulse Oximetry 100 Oxygen Delivery Method Room Air BMI result Body Mass Index 18.7 Course Course Course Narrative: RME: 24 yold female with pmh of dizziness, tingling in whole extremities, while using the bathroom. patient denies any syncope, chest pain, or shortness of breath. patient denies any abdominal pain. patient being evalauted cardiology who stated symptoms due to anixety and stress patient needs to rest and had normal echocardiagram. Patient will have labs drawn. Medical Decision Making Lab Data 01/26/25 14:40 01/26/25 14:40 Labs: Lab Results 10/30/25 Range/Units 14:40 WBC 5.4 (4.8-10.8) X10*3/uL RBC 4.37 (4.20-5.50) X10*6/uL Hgb 11.1 L (12.0-16.0) g/dl Hct 37.1 (37.0-47.0) % MCV 84.9 (80.0-98.0) fL MCH 25.4 L (27.0-33.0) pg MCHC 29.9 L (31.0-35.0) g/dl RDW 14.5 (11.0-16.0) % Plt Count 278 (160-400) X10*3/uL MPV 9.7 (9.4-12.3) fL Immature Gran % (Auto) 0.2 (0.0-0.4) % Neut % (Auto) 64.8 (45-73) % Lymph % (Auto) 24.6 (20-40) % Sutton % (Auto) 7.8 (2-11) % Eos % (Auto) 2.2 (0-4) % Baso % (Auto) 0.4 (0-2) % Lymph # (Auto) 1.3 (1.2-4.9) X10*3/uL Sutton # (Auto) 0.4 (0.1-1.2) X10*3/uL Eos # (Auto) 0.1 (0.0-0.4) X10*3/uL Baso # (Auto) 0.0 (0.0-0.2) X10*3/uL Abs Immat Gran (auto) 0.01 (0.00-0.03) X10*3/uL Absolute Neuts (auto) 3.5 (2.0-8.3) x10*3/uL Absolute Nucleated RBC 0.000 (0.0-0.012) X10*3/uL Nucleated RBC % (auto) 0.0 (0.0-0.2) /100WBC PT 11.5 (10.9-12.4) SEC INR 1.0 (0.9-1.1) APTT 31.5 (26.7-34.1) SEC Sodium 142 (135-145) mmol/L Potassium 3.5 (3.3-5.1) mmol/L Chloride 109 H (96-108) mmol/L Carbon Dioxide 28 (22-29) mmol/L Anion Gap 9 L (12-20) BUN 9 (9-16) mg/dL Creatinine 0.63 (0.5-1.4) mg/dL Estim Creat Clear Calc 107.4 Estimated GFR > 60 Random Glucose 113 (60-115) mg/dL Calcium 8.9 D (8.4-10.2) mg/dL Magnesium 2.1 (1.6-2.6) mg/dL Total Bilirubin 0.4 (0.0-1.0) mg/dL AST 19 (5-31) U/L ALT 17 (0-31) U/L Alkaline Phosphatase 58 (39-117) U/L Troponin I High Sens < 2.7 (<3.5-17.0) ng/L Total Protein 7.2 (6.5-8.0) g/dL Albumin 4.6 (3.5-5.0) g/dL Beta HCG, Quant < 2 mIU/mL Discharge Plan Discharge Clinical Impression: Lightheadedness Patient Disposition: Left W/O Completing Treatment Prescriptions: No Action prenat.vits,karina,[id number] Tablet 1 tab PO BEDTIME Qty: 30 0RF meclizine 25 mg tablet 25 mg PO TID PRN (Reason: dizziness) Qty: 20 0RF Discharge Date/Time: 01/26/25 19:28
[2025-01-26 14:55] LABS: MANUAL DIFF FLAG NO
[2025-01-26 15:02] LABS: Hematocrit 37.1 % (37.0-47.0); Hemoglobin 11.1 g/dl (12.0-16.0); Imm Gran Abs Auto 0.01 X10*3/uL (0.00-0.03); Imm Gran Pct Auto 0.2 % (0.0-0.4); Lymphocytes Absolute Auto 1.3 X10*3/uL (1.2-4.9); Mean Corpuscular HGB Conc 29.9 g/dl (31.0-35.0); Mean Corpuscular Hemoglobin 25.4 pg (27.0-33.0); Mean Corpuscular Volume 84.9 fL (80.0-98.0); NRBC Abs Auto 0.000 X10*3/uL (0.0-0.012); NRBC Pct Auto 0.0 /100WBC (0.0-0.2); Platelet Count 278 X10*3/uL (160-400); Red Blood Count 4.37 X10*6/uL (4.20-5.50); White Blood Count 5.4 X10*3/uL (4.8-10.8)
[2025-01-26 15:05] LABS: INTERNATIONAL NORM RATIO 1.0 (0.9-1.1); Prothrombin Time 11.5 SEC (10.9-12.4)
[2025-01-26 15:08] LABS: Partial Thromboplastin Time 31.5 SEC (26.7-34.1)
[2025-01-26 16:17] LABS: Troponin-I High Sensitivity < 2.7 ng/L (<3.5-17.0)
[2025-01-26 16:20] LABS: Alanine Aminotransferase 17 U/L (0-31); Albumin Level 4.6 g/dL (3.5-5.0); Alkaline Phosphatase 58 U/L (39-117); Anion Gap 9 (12-20); Aspartate Amino Transferase 19 U/L (5-31); Blood Urea Nitrogen 9 mg/dL (9-16); Calcium 8.9 mg/dL (8.4-10.2); Carbon Dioxide 28 mmol/L (22-29); Chloride 109 mmol/L (96-108); Creatinine Clr Calc Pharmacy 107.4; Estimated Glomerular Filt Rate > 60; Magnesium 2.1 mg/dL (1.6-2.6); Potassium 3.5 mmol/L (3.3-5.1); Sodium 142 mmol/L (135-145); Total Protein 7.2 g/dL (6.5-8.0)
--- OUTSIDE RECORDS SUMMARY | 2025-01-26 18:13 | XMS_ITS | Clinical Summary ---
Author Organization [facility] ity Address [address] [place] [address] Care Team Providers Care Route Returner Name Role Phone Unavailable Primary Care Provider [...]
--- OUTSIDE RECORDS SUMMARY | 2025-01-26 18:13 | XMS_ITS | Clinical Summary ---
Demographics Address [address] [place] [address] Mobile Phone Home Phone Email Address Preferred Language en Marital Status Single Methodist Affiliation Unknown Race Other Race Ethnic Group Unknown Author Organization [employer] Address [address] [place] [address] Care Team Providers Care Hat Conditioner Name Role Phone Tao Sirena Primary Care Provider Allergies Active Allergy Reactions Criticality Noted Date Comments Gramineae Pollens 02/08/2024 Other Reaction(s): ITCHY EYES Mangifera Indica Angioedema High 05/23/2021 Other Reaction(s): Throat irritation AngioedemaMANGO Shellfish Allergy Anaphylaxis High 02/08/2024 Angioedema Medications * This document contains information received from the source organization and may not represent a complete record from that organization. meclizine (Antivert) 25 MG tablet Take 25 mg by mouth. 10/06/2024 Active hydrOXYzine pamoate (Vistaril) 25 MG capsule Take 1 capsule (25 mg) by mouth every 6 (six) hours if needed for itching or anxiety. 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 Patient was given [facility] crisis number, she knows she can reach out to therapist or [facility] prn worsening sxs. Start sertraline 25 mg and follow-up with PCP in 6 weeks. She has supportive partner and will reach out to radiation physicist to support her with her older daughter throughout the summer so that she can focus on psychotherapy and her 3 younger kids. Gallstones 02/08/2024 Anxiety 02/08/2024 Mild intermittent asthma 05/06/2017 Encounters Date Type Department Care Team Description 01/16/2025 1:30 PM EDT Clinical Support [facility] [address] [place] [phone] Jennifer Estrella, RN Encounter for immunization 01/16/2025 Travel 01/04/2025 Patient Outreach [facility] [address] [place] [address] Sirena Burger DO Care Coordination (C3/CM Outreach) 12/19/2024 1:30 PM EDT Clinical Support [facility] [address] [place] [address] Bruna Sorto, DENIS Encounter for immunization 12/19/2024 Travel 12/16/2024 Telephone [facility] [address] [place] [address] Sirena Burger DO Immunizations 12/09/2024 Patient Outreach [facility] [address] [place] [address] Sirena Burger DO 12/07/2024 11:30 AM EDT Office Visit [facility] [address] [place] [address] Sirena Burger DO Dizziness (Primary Dx); Palpitations 12/07/2024 Travel 12/05/2024 Telephone [facility] [address] [place] [address] Sirena Burger DO Chart Prep 12/02/2024 Patient Outreach [facility] [address] [place] [address] Sirena Burger DO Care Coordination (C3/CM Outreach) 11/30/2024 Telephone [facility] [address] [place] [address] Lela Quiroz MD No Show 11/30/2024 Travel 11/16/2024 Patient Outreach [facility] [address] [place] [address] Sirena Burger DO Care Coordination (C3/CM Outreach) 10/26/2024 Patient Outreach [facility] [address] [place] [address] Sirena Burger DO Care Coordination (C3/CM Outreach) from Last 3 Months Immunizations Immunization Administration Dates Next Due DTaP 09/28/2007, 7,10/19/2006,07/20,02/03/2006 HPV 9-Valent 06/11/2016,09/27/2012 HPV, Quadrivalent 06/11/2016, 3,2012,12/10,12/13/2009 Hep A, Unspecified 06/11/2016,12/10/2010, 010 Hep A, ped/adol, 2 dose 06/11/2016,12/10/2010, Hep B, Adolescent or Pediatric 11/03/2006,2006,02/13/2006 HepB-CpG 01/16/2025,12/19/2024 IPV 06/11/2016, 1,11/03/2006,07/20,02/13/2006 Influenza injectable quadriv alent [...] Passive Smoke Exposure: Never Smokeless Tobacco: Never Tobacco Cessation:Counseling Given: [...] Q2 Not on file 02/01/2024 Comments Unknown Intention Date Recorded No desire to become (finding) 0 09/29/2024 Sex and Gender Information Value Date Recorded Sex Assigned at Female 01/27/2022 10:20 AM EDT Legal Sex Female 10:20 AM EDT Gender Identity Choose not to disclose 10:20 AM EDT Sexual Orientation Choose not to disclose 2021 10:20 AM EDT Last Filed Vital Signs Vital Sign Reading Time Taken Comments Blood Pressure 120/80 12/07/2024 11:43 AM EDT Pulse 72 12/07/2024 11:43 AM EDT Temperature 36.6 C (97.8 F) 12/07/2024 11:43 AM EDT Respiratory Rate 16 12/07/2024 11:43 AM EDT Oxygen Saturation - - Inhaled Oxygen Concentration - - Weight 47.7 kg (105 lb 4 oz) 12/07/2024 11:43 AM EDT Height 162.6 cm (5' 4 ) 12/07/2024 11:43 AM EDT Body Mass Index 18.07 12/07/2024 11:43 AM EDT Plan of Treatment Health Maintenance Due Date Last Done Comments Pneumococcal Vaccine: Pediatrics (0 to 5 Years) and At-Risk Patients (6 to 49) Years (1 of 2 - PCV) 07/10/2019 Pap Smear 2021 COVID-19 Vaccine ( season) 2024 Influenza Vaccine (#1) 2024 03/18/2016, 2015 Alcohol/Substance Use Screening 09/29/2025 09/29/2024 Depression Screening 09/29/2025 09/29/2024, 09/30/19 Disability Screening 09/29/2025 09/29/2024 Family Planning (PISQ) 09/29/2025 09/29/2024 Tobacco Screening 09/29/2025 09/29/2024 SDOH Screening 12/07/2025 12/07/2024 DTaP/Tdap/Td Vaccines (9 - Td or Tdap) 07/11/2032 07/11/2022, 10/27/2018, 09/27/2012, Additional history exists Zoster Vaccines (1 of 2) 2050 RSV Patients and Patients Aged 60 years or older (1 - 1-dose 75+ series) 07/10/2075 Meningococcal Vaccine Aged Out 09/27/2012 , 09/27/2012, 2012, Additional history exists No longer eligible based on patient's age to complete this topic HPV Vaccines Completed 06/11/2016, 05/28, 09/27/2012, Additional history exists Hepatitis A Vaccines Completed 06/11/2016, 06/11/2016, 12/10/2010, Additional history exists IPV Vaccines Completed 06/11/2016, 11/28, 11/03/2006, Additional history exists HIV Screening Completed 05/16/2020 Hepatitis C Screening Completed 05/16/2020 Hepatitis B Vaccines Completed 01/16/2025, 12/19/2024, 11/03/2006, Additional history exists HIB Vaccines Aged Out No longer eligi [...] Associated Diagnosis Comments HCG, TOTAL, QN Routine 01/26/2025 2:40 PM EDT MAGNESIUM Routine 01/26/2025 2:40 PM EDT COMPREHENSIVE METABOLIC PANEL Routine 01/26/2025 2:40 PM EDT HIGH SENSITIVITY TROPONIN I Routine 01/26/2025 2:40 PM EDT APTT Routine 01/26/2025 2:40 PM EDT PROTHROMBIN TIME-INR Routine 01/26/2025 2:40 PM EDT CBC WITH AUTO DIFFERENTIAL Routine 01/26/2025 2:40 PM EDT ZZZ HISTORICAL HEPATITIS C ANTIBODY Routine 05/16/2020 9:50 AM EST from Last 3 Months or Most Recently Relevant to Health Maintenance Results * High Sensitivity Troponin I (01/26/2025 2:40 PM EDT) [facility] TROPONIN I HIGH SENSITIVITY <2.7 <3.5 - 17.0 ng/L [facility] Comment:The [employer]roy high sens itivity Troponin-I results should beused in conjunction with other diagnostic information suchas ECG, clinical observations and information, and patientsymptoms to aid in the diagnosis of [place]. 01/26/2025 2:40 PM EDT 01/26/2025 2:54 PM EDT us Generic External Data Provider LAB BLOOD ORDERAB LES Final Result [facility] [address] [place] [phone] * (ABNORMAL) CBC auto differential (01/26/2025 2:40 PM EDT) [facility] White Blood Count 5.4 4.8 - 10.8 X10*3/uL [facility] Red Blood Count 4.37 4.20 - 5.50 X10*6/uL [facility] Hemoglobin 11.1(L) 12.0 - 16.0 g/dl [facility] Hematocrit 37.1 37.0 - 47.0 % [facility] Mean Corpuscular Volume 84.9 80.0 - 98.0 fL [facility] Mean Corpuscular Hemoglobin 25.4(L) 27.0 - 33.0 pg [facility] Mean Corpuscular HGB Conc 29.9(L) 31.0 - 35.0 g/dl [facility] Red Cell Distribution Width 14.5 11.0 - 16.0 % [facility] Platelet Count 278 160 - 400 X10*3/uL [facility] Mean Platelet Volume 9.7 9.4 - 12.3 fL [facility] Neutrophils Percent Auto 64.8 45 - 73 % [facility] Imm Gran Pct Auto 0.2 0.0 - 0.4 % [facility] Lymphocytes Percent Auto 24.6 20 - 40 % [facility] Monocytes Percent Auto 7.8 2 - 11 % [facility] Eosinophils Percent Auto 2.2 0 - 4 % [facility] Basophils Percent Auto 0.4 0 - 2 % [facility] NRBC Pct Auto 0.0 0.0 - 0.2 /100WBC [facility] Neutrophils Absolute Auto 3.5 2.0 - 8.3 x10*3/uL [facility] Imm Gran Abs Auto 0.01 0.00 - 0.03 X10*3/uL [facility] Lymphocytes Absolute Auto 1.3 1.2 - 4.9 X10*3/uL [facility] Monocytes Absolute Auto 0.4 0.1 - 1.2 X10*3/uL [facility] Eosinophils Absolute Auto 0.1 0.0 - 0.4 X10*3/uL [facility] Basophils Absolute Auto 0.0 0.0 - 0.2 X10*3/uL [facility] NRBC Abs Auto 0.000 0.0 - 0.012 X10*3/uL [facility] 01/26/2025 2:40 PM EDT 01/26/2025 2:54 PM EDT us Generic External Data Provider LAB BLOOD ORDERAB LES Final Result [facility] [address] [place] [phone] * Partial Thromboplastin Time, Activated (APTT) (01/26/2025 2:40 PM EDT) Partial Thromboplastin Time 31.5 26.7 - 34.1 SEC [facility] 01/26/2025 2:40 PM EDT 01/26/2025 2:54 PM EDT Generic External Data Provider LAB BLOOD ORDERAB LES Final Result Performing Organization Address [facility]/ZIP Co de Phone Number [facility] [address] [place] [phone] * Prothrombin Time-INR (01/26/2025 2:40 PM EDT) [facility] Prothrombin Time 11.5 10.9 - 12.4 SEC [facility] INTERNATIONAL NORM RATIO 1.0 0.9 - 1.1 [facility] Comment:INTERNATIONAL NORMAL IZED RATIO (INR) REFERENCE RANGES Reference RangeFor patients not on anticoagulant therapy: 0.9 - 1.1INR ranges for oral anticoagulanttherapy:For prevention and treatment of venous thrombosis and pulmonary embolism: 2.0 - 3.0For acute myocardial infarction with aspirin therapy: 2.0 - 3.0For acute myocardial infarction without aspirin therapy: 3.0 - 4.0For patients with mechanical prosthetic heart valves: 2.5 - 3.5 01/26/2025 2:40 PM EDT 01/26/2025 2:54 PM EDT [employer] External Data Provider LAB BLOOD ORDERAB LES Final Result Performing Organization Address [facility] Co de Phone Number [facility] [address] [place] [address] [phone] * hCG, Total, Quantitative (01/26/2025 2:40 PM EDT) HCG Quantitative <2 mIU/mL [facility] Comment:Weeks post LMP Appro ximate hCG(Last Menstrual Period) Range (mIU/ml)3 - 4 weeks 9 - 1304 - 5 weeks 75 - 2,6005 - 6 weeks 850 - 20,8006 - 7 weeks 4000 - 100,2007 - 12 weeks 11,500 - 289,14444 - 16 weeks 18,300 - 137,86109 - 29 weeks (2nd trimester) 1,400 - 53,35083 - 41 weeks (3rd trimester) 940 - 60,000The Mcelroy B- hCG assay is used for the early detection ofpregnancy; it cannot be used to diagnose any conditionunrelated to . If a B-hCG level is not supportedby the clinical evidence, results should be confirmed by analternative method (qualitative urine hCG, for example). 01/26/2025 2:40 PM EDT 01/26/2025 2:54 PM EDT Generic External Data Provider LAB BLOOD ORDERAB LES Final Result Performing Organization Address [facility] de Phone Number [facility] [address] [place] [phone] * Magnesium (01/26/2025 2:40 PM EDT) Magnesium 2.1 1.6 - 2.6 mg/dL [facility] 01/26/2025 2:40 PM EDT 01/26/2025 2:54 PM EDT Generic External Data Provider LAB BLOOD ORDERAB LES Final Result Performing Organization Address [facility] de Phone Number [facility] [address] [place] [phone] * (ABNORMAL) Comprehensive Metabolic Panel (01/26/2025 2:40 PM EDT) Sodium 142 135 - 145 mmol/L [facility] Potassium 3.5 3.3 - 5.1 mmol/L [facility] Chloride 109(H) 96 - 108 mmol/L [facility] Carbon Dioxide 28 22 - 29 mmol/L [facility] Anion Gap 9(L) 12 - 20 [facility] Urea Nitrogen (BUN) 9 9 - 16 mg/dL [facility] Creatinine, Serum 0.63 0.5 - 1.4 mg/dL [facility] Creatinine Clr Calc Pharmacy 107.4 [facility] Comment:Provided height and weight: 162.56 cm,49.442 kg.eGFR (calculated from the MDRD study equation) and eCrCl(calculated from the Cockcroft-Gault equation) are based ondifferent parameters and may not yield comparable results.If eCrCl result is absurd, please check patient'sheight/weight. Estimated Glomerular Filt Rate >60 [facility] Comment:Chronic Kidney Disea se: Estimated GFR < 60 mL/min/1.12o4Arvcez Kidney Disease: Estimated GFR < 15 mL/min/1.73m2 Glucose 113 60 - 115 mg/dL [facility] Calcium 8.9 8.4 - 10.2 mg/dL [facility] Bilirubin, Total 0.4 0.0 - 1.0 mg/dL [facility] Aspartate Amino Transferase 19 5 - 31 U/L [facility] Alanine Aminotransferase 17 0 - 31 U/L [facility] Total Protein 7.2 6.5 - 8.0 g/dL [facility] Albumin Level 4.6 3.5 - 5.0 g/dL [facility] Alkaline Phosphatase 58 39 - 117 U/L [facility] 01/26/2025 2:40 PM EDT 01/26/2025 2:54 PM EDT us Generic External Data Provider LAB BLOOD ORDERAB LES Final Result [facility] [address], [place] [phone] * Hepatitis C Antibody (05/16/2020 9:50 AM EST) Hepatitis C Antibody Nonreactive Nonreactive [facility] Comment: Antibodies to HCV not detected; does not exclude early acute HCV infection. HIV AB/AG Nonreactive Nonreactive [facility] Comment: HIV-1 p24 Ag and/or [...] of detection of this assay. The [employer] HIV Ag/Ab Combo assay result and supplemental assay results should be interpreted in conjunction with the patient's clinical presentation, history and other laboratory results. If the results are inconsistent with clinical evidence, additional testing is suggested to confirm the result. Hepatitis B Surface Antigen Negative Negative [facility] 05/16/2020 9:50 AM EST us Historical Provider HISTORICAL/NON ORDERABLE LABS Final Result Performing Organization Address City/State/[facility] Co de Phone Number [facility] [address] from Last 3 Months or Most Recently Relevant to Health Maintenance [place] [address] [address] [place] [address] [phone] [place] [phone] * Guarantor: Colleen Tse Account Type Relation to Patient Date of Phone Billing Address Personal/Family Self [address] [place] [address] Care Teams Hat Conditioner Relationship Specialty Start Date End Date Sirena Burger DO [address] [place] [phone] PCP - General Family Medicine 01/20/24
== END 2025-01-26 19:28 | disposition left against medical advice (07) ==
PROVIDERS: Physician Assistant; Emergency Provider Emergency Medicine; PCP Family Medicine
DX: R42 Dizziness and giddiness (principal); J45.909 Unspecified asthma, uncomplicated; Z53.29 Procedure and treatment not carried out because of patient's decision for other reasons
CPT/HCPCS: 36415; 80053; 83735; 84484; 84702; 85025; 85610; 85730; 93005; 99283

== ENCOUNTER → 2025-01-26 14:13 | Outpatient (BNV) | payer MEDICAID, SELFPAY | PROVIDERS: Emergency Provider Emergency Medicine; PCP Family Medicine; Visit Provider Internal Medicine | DX: R42 Dizziness and giddiness (principal) | CPT/HCPCS: 93010 ==

== ENCOUNTER 2025-02-03 15:31 | Outpatient (REF) | payer MEDICAID, SELFPAY ==
--- NOTE | ~2025-02-03 | US_ITS ---
EXAMINATION: US EXTRACRANIAL CAROTID DUPLEX, BILATERAL CLINICAL INFORMATION: Dizziness, 24-year-old female. COMPARISON: None available. TECHNIQUE: Real-time ultrasound and Doppler techniques (integrating B-mode 2-D vascular images, Doppler spectral analysis and color-flow Doppler imaging) were utilized to interrogate the extracranial carotid arteries, the vertebral arteries and proximal subclavian arteries bilaterally. The degree of stenosis is determined by criteria similar to NASCET. FINDINGS: Right Side: 1. There is no significant atherosclerotic plaque present. 2. The common carotid artery PSV proximally is 127 cm/s and distally 96 cm/s. 3. The proximal internal carotid artery velocities are 73 cm/s systolic and 35 cm/s diastolic. 4. The proximal external carotid artery PSV is 1.3 cm/s. 5. The vertebral artery shows normal antegrade flow, with peak systolic velocity of 53 cm/s. 6. The subclavian artery waveforms are normal. ICA to CCA ratio is 0.57. Left Side: 1. There is no significant atherosclerotic plaque present. 2. The common carotid artery PSV proximally is 128 cm/s and distally normally cm/s. 3. The proximal internal carotid artery velocities are 112 cm/s systolic and 39 cm/s diastolic. 4. The proximal external carotid artery PSV is 83 cm/s. 5. The vertebral artery shows normal antegrade flow, with peak systolic velocity of 45 cm/s. 6. The subclavian artery waveforms are normal. ICA to CCA ratio is 0.88. US/US carotid duplex BI IMPRESSION: 1. RIGHT: Normal right internal carotid artery without atherosclerotic plaque or hemodynamically significant stenosis. 2. LEFT: Normal left internal carotid artery without atherosclerotic plaque or hemodynamically significant stenosis. Electronically signed by: Rocael Doty MD 02/03/2025 04:19 PM [facility]
--- OUTSIDE RECORDS SUMMARY | 2025-02-03 16:35 | XMS_ITS ---
Demographics Address [address] [place] [address] Mobile Phone Home Phone Email Address Email Address Preferred Language en Marital Status Single Confucianism Affiliation Unknown Race Other Race Ethnic Group Unknown Author Organization [employer] Address [address] [place] [address] [address] [place] [address] Care Team Providers Care Soda Flaker Name Role Phone Sirena Burger DO Primary Care Provider Monika Antunez Unavailable Chato Leary Unavailable C3 CM High Risk Maternity Status:Outreach In Progress (Enrolling) Start date:01/27/2025 Enrollment reason:ADT Feed Overview ED- [place] [facility] [place]. Case Team Name Relationship Phone Monika Antunez(Responsible Staff) Registered Nurse [phone] Continued Care and Services Coordination
--- OUTSIDE RECORDS SUMMARY | 2025-02-03 16:35 | XMS_ITS | Encounter Summary ---
Demographics Address [address] [place] [address] Mobile Phone Home Phone Email Address Email Address Preferred Language en Marital Status Single Rastafarian Affiliation Unknown Race Other Race Ethnic Group Unknown Author Organization [employer] Address [address] [place] [address] [address] [place] [address] Care Team Providers Care Remote Coders Name Role Phone Sirena Burger DO Primary Care Provider Monika Antunez Unavailable Chato Leary Unavailable Reason for Visit * Reason Comments Care Coordination C3CM/CHW ANGELINE Craig#2- ADT Outreach-LVM Encounter Details Date Type Department Care Team (Latest Contact Info) Description 02/03/2025 Patient Outreach [facility] [address] [place] [address] Sirena Burger DO [address] [place] [address] Care Coordination (C3CM/CHW ANGELINE Ortega#2- ADT Outreach-LVM) Social History Tobacco Use Types Packs/Day Years [...] as of this encounter Progress Notes * Chato Leary - 02/03/2025 4:25 PM EST CHW Chato Leary placed outbound call to patient in regards to offer services for CM/CHW programservices as patient stratified on ADT Feed for ED visit to [facility] on 01/26/2025. No answer at this time. CHW CONOR introducing herself from [facility] CM Department with CHW's name, department and direct contact number requesting call back. Will re-attempt to contact within 5 days. and address not confirmed. documented in this encounter Plan of Treatment Not on file documented as of this encounter Visit Diagnoses Not on filedocumented in this encounter Additional Health Concerns Assessment Noted Time PHQ-9 Depression Total Score: 7 09/30/19 25 3:29 PM EDT documented as of this encounter Care Teams Remote Coders Relationship Specialty Start Date End Date Sirena Burger DO [address] [place] [address] PCP - General Family Medicine 01/20/24 Monika Antunez Registered Nurse 01/27/25 Chato Leary 01/27/25 documented as of this encounter
--- OUTSIDE RECORDS SUMMARY | 2025-02-03 16:36 | XMS_ITS ---
Demographics Address [address] [place] [address] Mobile Phone Home Phone Email Address Email Address Preferred Language en Marital Status Single Judaism Affiliation Unknown Race Other Race Ethnic Group Unknown Author Organization [employer] Address [address] [place] [address] [address] [place] [address] Care Team Providers Care Quality Assurance Manager Name Role Phone Sirena Burger DO Primary Care Provider Monika Antunez Unavailable [phone] Chato Leary Unavailable C3 CM Maternal [place] Advocate Status:Outreach In Progress (Enrolling) Start date:01/27/2025 Enrollment reason:ADT Feed Overview [facility] ED- [place] [facility] [place]. Case Team Name Relationship Phone Chato Leary(Responsible Staff) [phone] Continued Care and Services Coordination
--- OUTSIDE RECORDS SUMMARY | 2025-02-03 16:36 | XMS_ITS | Clinical Summary ---
Demographics Address [address] [place] [address] Mobile Phone Home Phone Email Address Email Address Preferred Language en Marital Status Single Scientology Affiliation Unknown Race Other Race Ethnic Group Unknown Author Organization [employer] Address [address] [place] [address] [address] [place] [address] Care Team Providers Care Rn Cardiovascular Name Role Phone Sirena Burger DO Primary Care Provider Monika Antunez Unavailable Chato Leary Unavailable Allergies Active Allergy Reactions Criticality Noted Date [...] intervention , Patient to reach out to [facility] team as needed, and Patient to engage in OP therapy Assessment & Plan (09/29/2024 3:58 PM EDT): Seems to have depression exacerbating underlying MDD, patient feels safe at home and is able to reach out for safety, she denies SI/HI. Patient was given [facility] crisis number, she knows she can reach out to therapist or [facility] prn worsening sxs. Start sertraline 25 mg and follow-up with PCP in 6 weeks. She has supportive partner and will reach out to associate professor of biblical studies to support her with her older daughter throughout the summer so that she can focus on psychotherapy and her 3 younger kids. Gallstones 02/08/2024 Anxiety 02/08/2024 Mild intermittent asthma 05/06/2017 Encounters Date Type Department Care Team Description 02/03/2025 Patient Outreach [facility] [address] [place] [address] Sirena Burger, Care Coordination ([facility]/ANGELINE Guerra#2- ADT Outreach-[facility]) 01/27/2025 Patient Outreach [facility] [address] [place] [address] Sirena Burger DO Care Coordination ([facility]/CHW Chato Leary, TC#1-ADT Outreach-[facility]) 01/27/2025 Patient Outreach [address] [address] Sirena Burger DO Care Coordination (C3/W Chato Leary, Chart Review) 01/27/2025 Patient Outreach [address] [address] Sirena Burger DO Care Management (C3 chart review) 01/27/2025 Patient Outreach [address] [address] Sirena Burger DO 01/16/2025 1:30 PM EDT Clinical Support [address] [address] Jennifer Estrella, DENIS Encounter for immunization 01/16/2025 Travel 01/04/2025 Patient Outreach [facility] [address] [place] [address] Sirena Burger DO Care Coordination (C3/ Outreach) 12/19/2024 1:30 PM EDT Clinical Support [address] [address] Bruna Sorto, DENIS Encounter for immunization 12/19/2024 Travel 12/16/[address] [address] Sirena Burger DO Immunizations 12/09/2024 Patient Outreach [facility] [address] [place] [address] Sirena Burger DO 12/07/2024 11:30 AM EDT Office Visit [address] [address] Sirena Burger DO Dizziness (Primary Dx); Palpitations 12/07/2024 Travel 12/05/[address] [address] Sirena Burger DO Chart Prep 12/02/2024 Patient Outreach [facility] [address] [place] [address] Sirena Burger DO Care Coordination (C3/CM Outreach) 11/30/2024 Telephone [facility] [address] [place], [place] [phone] Lela Quiroz MD No Show 11/30/2024 Travel 11/16/2024 Patient Outreach [facility] [address] [place] [address] Sirena Burger DO Care Coordination (C3/CM Outreach) [...] Procedure Name Priority Date/Time Associated Diagnosis Comments VASC US CAROTID ARTERY DUPLEX BILATERAL Routine 02/03/2025 3:41 PM EST Dizziness HCG, TOTAL, QN Routine 01/26/2025 2:40 PM [...] Recently Relevant to Health Maintenance Results * Vascular US carotid artery duplex bilateral (02/03/2025 3:41 PM EST) 02/03/2025 3:41 PM EST Narrative [facility] - 02/03/2025 4:[address] [address] Ultrasound Report Signed Patient: Colleen Mart#: [id number] : 2000 Acct:[id number] Age/Sex: 24 / F ADM Date: 02/03/25 Loc: .US Attending Dr: Sirena Burger DO Ordering Physician: Sirena Burger DO Date of Service: 02/03/25 Procedure(s): US carotid duplex BI Accession Number(s): [id number] cc: Sirena Burger DO Reason for Exam: dizziness EXAMINATION: US EXTRACRANIAL CAROTID DUPLEX, BILATERAL CLINICAL INFORMATION: Dizziness, 24-year-old female. COMPARISON: None available. TECHNIQUE: Real-time ultrasound and Doppler techniques (integrating B-mode 2-D vascular images, Doppler spectral analysis and color-flow Doppler imaging) were utilized to interrogate the extracranial carotid arteries, the vertebral arteries and proximal subclavian arteries bilaterally. The degree of stenosis is determined by criteria similar to NASCET. FINDINGS: Right Side: 1. There is no significant atherosclerotic plaque present. 2. The common carotid artery PSV proximally is 127 cm/s and distally 96 cm/s. 3. The proximal internal carotid artery velocities are 73 cm/s systolic and 35 cm/s diastolic. 4. The proximal external carotid artery PSV is 1.3 cm/s. 5. The vertebral artery shows normal antegrade flow, with peak systolic velocity of 53 cm/s. 6. The subclavian artery waveforms are normal. ICA to CCA ratio is 0.57. Left Side: 1. There is no significant atherosclerotic plaque present. 2. The common carotid artery PSV proximally is 128 cm/s and distally normally cm/s. 3. The proximal internal carotid artery velocities are 112 cm/s systolic and 39 cm/s diastolic. 4. The proximal external carotid artery PSV is 83 cm/s. 5. The vertebral artery shows normal antegrade flow, with peak systolic velocity of 45 cm/s. 6. The subclavian artery waveforms are normal. ICA to CCA ratio is 0.88. US/US carotid duplex BI IMPRESSION: 1. RIGHT: Normal right internal carotid artery without atherosclerotic plaque or hemodynamically significant stenosis. 2. LEFT: Normal left internal carotid artery without atherosclerotic plaque or hemodynamically significant stenosis. Electronically signed by: Rocael Doty MD 02/03/2025 04:19 PM [facility] Dictated By: Rocael Doty MD Signed By: <Electronically signed by Rocael Doty MD in OV> 02/03/25 1619 DD/ 1541 TD/TT: 02/03/25 1552 Outplacement Consultant: Procedure Note Donotuseinterpreter, Image - 02/03/2025 [place] [address] Ultrasound Report Signed Patient: Colleen Mart R#: [id number] : 2000Acct:[id number] Age/Sex: 24 / FADM Date: 02/03/25 Loc: HO.US Attending Dr: Sirena Burger DO Ordering Physician: Sirena Burger DO Date of Service: 02/03/25 Procedure(s): US carotid duplex BI Accession Number(s): [id number] cc: Sirena Burger DO Reason for Exam: dizziness EXAMINATION: US EXTRACRANIAL CAROTID DUPLEX, BILATERAL CLINICAL INFORMATION: Dizziness, 24-year-old female. COMPARISON: None available. TECHNIQUE: Real-time ultrasound and Doppler techniques (integrating B-mode 2-D vascular images, Doppler spectral analysis and color-flow Doppler imaging) were utilized to interrogate the extracranial carotid arteries, the vertebral arteries and proximal subclavian arteries bilaterally. The degree of stenosis is determined by criteria similar to NASCET. FINDINGS: Right Side: 1. There is no significant atherosclerotic plaque present. 2. The common carotid artery PSV proximally is 127 cm/s and distally 96 cm/s. 3. The proximal internal carotid artery velocities are 73 cm/s systolic and 35 cm/s diastolic. 4. The proximal external carotid artery PSV is 1.3 cm/s. 5. The vertebral artery shows normal antegrade flow, with peak systolic velocity of 53 cm/s. 6. The subclavian artery waveforms are normal. ICA to CCA ratio is 0.57. Left Side: 1. There is no significant atherosclerotic plaque present. 2. The common carotid artery PSV proximally is 128 cm/s and distally normally cm/s. 3. The proximal internal carotid artery velocities are 112 cm/s systolic and 39 cm/s diastolic. 4. The proximal external carotid artery PSV is 83 cm/s. 5. The vertebral artery shows normal antegrade flow, with peak systolic velocity of 45 cm/s. 6. The subclavian artery waveforms are normal. ICA to CCA ratio is 0.88. US/US carotid duplex BI IMPRESSION: 1. RIGHT: Normal right internal carotid artery without atherosclerotic plaque or hemodynamically significant stenosis. 2. LEFT: Normal left internal carotid artery without atherosclerotic plaque or hemodynamically significant stenosis. Electronically signed by: Rocael Doty MD 02/03/2025 04:19 PM EST Dictated By: Rocael Doty MD Signed By: <Electronically signed by Rocael Doty MD in OV> 02/03/25 1619 DD/ 1541 TD/TT: 02/03/25 1552 Outplacement Consultant: Sirena Burger DO CV VASCULAR PROCEDURES Final Result Performing Organization Address City/[facility]/ZIP Co de Phone Number [facility] [address] [place] [phone] * High Sensitivity Troponin I (01/26/2025 2:40 PM EDT) TROPONIN I HIGH SENSITIVITY <2.7 <3.5 - 17.0 ng/L [facility] Comment:The Mcelroy high sens itivity Troponin-I results should beused in conjunction with other diagnostic information suchas ECG, clinical observations and information, and patientsymptoms to aid in the diagnosis of CA. 01/26/2025 2:40 PM EDT 01/26/2025 2:54 PM EDT us Generic External Data Provider LAB BLOOD ORDERAB LES Final Result Performing Organization Address [facility]/ZIP Co de Phone Number [facility] [address] [place] [phone] * (ABNORMAL) CBC auto differential (01/26/2025 2:40 PM EDT) White Blood Count 5.4 4.8 - 10.8 X10*3/uL [facility] Red Blood Count 4.37 4.20 - 5.50 X10*6/uL [facility] Hemoglobin 11.1(L) 12.0 - 16.0 g/dl [facility] Hematocrit 37.1 37.0 - 47.0 % [facility] Mean Corpuscular Volume 84.9 80.0 - 98.0 fL [facility] Mean Corpuscular Hemoglobin 25.4(L) 27.0 - 33.0 pg [facility] Mean Corpuscular HGB Conc 29.9(L) 31.0 - 35.0 g/dl [facility] Red Cell Distribution Width 14.5 11.0 - 16.0 % [facility] Platelet Count 278 160 - 400 X10*3/uL [facility] Mean Platelet Volume 9.7 9.4 - 12.3 fL [facility] Neutrophils Percent Auto 64.8 45 - 73 % [facility] Imm Gran Pct Auto 0.2 0.0 - 0.4 % [facility] Lymphocytes Percent Auto 24.6 20 - 40 % [facility] Monocytes Percent Auto 7.8 2 - 11 % [facility] Eosinophils Percent Auto 2.2 0 - 4 % [facility] Basophils Percent Auto 0.4 0 - 2 % [facility] NRBC Pct Auto 0.0 0.0 - 0.2 /100WBC [facility] Neutrophils Absolute Auto 3.5 2.0 - 8.3 x10*3/uL [facility] Imm Gran Abs Auto 0.01 0.00 - 0.03 X10*3/uL [facility] Lymphocytes Absolute Auto 1.3 1.2 - 4.9 X10*3/uL [facility] Monocytes Absolute Auto 0.4 0.1 - 1.2 X10*3/uL [facility] Eosinophils Absolute Auto 0.1 0.0 - 0.4 X10*3/uL [facility] Basophils Absolute Auto 0.0 0.0 - 0.2 X10*3/uL [facility] NRBC Abs Auto 0.000 0.0 - 0.012 X10*3/uL [facility] 01/26/2025 2:40 PM EDT 01/26/2025 2:54 PM EDT Generic External Data Provider LAB BLOOD ORDERAB LES Final Result Performing Organization Address City/[facility]/ZIP Co de Phone Number [facility] [address] [place] [phone] * Partial Thromboplastin Time, Activated (APTT) (01/26/2025 2:40 PM EDT) Partial Thromboplastin Time 31.5 26.7 - 34.1 SEC [facility] 01/26/2025 2:40 PM EDT 01/26/2025 2:54 PM EDT Generic External Data Provider LAB BLOOD ORDERAB LES Final Result Performing Organization Address [facility] Co de Phone Number [facility] [address] [place] [phone] * Prothrombin Time-INR (01/26/2025 2:40 PM EDT) Prothrombin Time 11.5 10.9 - 12.4 SEC [facility] INTERNATIONAL NORM RATIO 1.0 0.9 - 1.1 [facility] Comment:INTERNATIONAL NORMAL IZED RATIO (INR) [...] ORDERAB LES Final Result Performing Organization Address [facility] de Phone Number [facility] [address] [place] [phone] * hCG, Total, Quantitative (01/26/2025 2:40 PM EDT) HCG Quantitative <2 mIU/mL [facility] Comment:Weeks post LMP Appro ximate hCG(Last Menstrual Period) Range (mIU/ml)3 - 4 weeks 9 - 1304 - 5 weeks 75 - 2,6005 - 6 weeks 850 - 20,8006 - 7 weeks 4000 - 100,2007 - 12 weeks 11,500 - 289,18108 - 16 weeks 18,300 - 137,57092 - 29 weeks (2nd trimester) 1,400 - 53,74978 - 41 weeks (3rd trimester) 940 - [...] ORDERAB LES Final Result Performing Organization Address [facility] Co de Phone Number [facility] [address] [place] [phone] * Magnesium (01/26/2025 2:40 PM EDT) Magnesium 2.1 1.6 - 2.6 mg/dL [facility] 01/26/2025 2:4 0 PM EDT 01/26/2025 2:54 PM EDT Generic External Data Provider LAB BLOOD ORDERAB LES Final Result [facility] [address] [place], [place] [phone] * (ABNORMAL) Comprehensive Metabolic Panel (01/26/2025 2:40 PM EDT) Sodium 142 135 - 145 mmol/L [facility] Potassium 3.5 3.3 - 5.1 mmol/L [facility] Chloride 109(H) 96 - 108 mmol/L [facility] Carbon Dioxide 28 22 - 29 mmol/L [facility] Anion Gap 9(L) 12 - 20 [facility] Urea Nitrogen (BUN) 9 9 - 16 mg/dL [facility] Creatinine, Serum 0.63 0.5 - 1.4 mg/dL [facility] Creatinine Clr Calc Pharmacy 107.4 [facility] Comment:Provided height and weight: 162.56 cm,49.442 kg.eGFR (calculated from the MDRD study equation) and eCrCl(calculated from the Cockcroft-Gault equation) are based ondifferent parameters and may not yield comparable results.If eCrCl result is absurd, please check patient'sheight/weight. Estimated Glomerular Filt Rate >60 [facility] Comment:Chronic Kidney Disea se: Estimated GFR < 60 mL/min/1.56x5Eabkhr Kidney Disease: Estimated GFR < 15 mL/min/1.73m2 Glucose 113 60 - 115 mg/dL [facility] Calcium 8.9 8.4 - 10.2 mg/dL [facility] Bilirubin, Total 0.4 0.0 - 1.0 mg/dL [facility] Aspartate Amino Transferase 19 5 - 31 U/L [facility] Alanine Aminotransferase 17 0 - 31 U/L [facility] Total Protein 7.2 6.5 - 8.0 g/dL [facility] Albumin Level 4.6 3.5 - 5.0 g/dL [facility] Alkaline Phosphatase 58 39 - 117 U/L [facility] 01/26/2025 2:40 PM EDT 01/26/2025 2:54 PM EDT us Generic External Data Provider LAB BLOOD ORDERAB LES Final Result [facility] [address] [place] [phone] * Hepatitis C Antibody (05/16/2020 9:50 AM EST) [facility] Hepatitis C Antibody Nonreactive Nonreactive [facility] Comment: Antibodies to HCV not detected; does not exclude early acute HCV infection. HIV AB/AG Nonreactive Nonreactive [facility] Comment: HIV-1 p24 Ag and/or [...] of detection of this assay. The Mcelroy Strip Machine Tender HIV Ag/Ab Combo assay result and supplemental assay results should be interpreted in conjunction with the patient's clinical presentation, history and other laboratory results. If the results are inconsistent with clinical evidence, additional testing is suggested to confirm the result. Hepatitis B Surface Antigen Negative Negative [facility] 05/16/2020 9:50 AM EST Historical Provider MD HISTORICAL/NON ORDERABLE LABS Final Result Performing Organization Address City/[facility]/ZIP Co de Phone Number [facility] [address] from Last 3 Months or Most Recently Relevant to Health Maintenance [facility] Care Teams Rn Cardiovascular Relationship Specialty Start Date End Date Sirena Burger DO [address] [place] [phone] PCP - General Family Medicine 01/20/24 Monika Antunez Registered Nurse 01/27/25 Chato Leary 01/27/25
== END 2025-02-03 15:32 | disposition home or self-care (01) ==
LOC: HO.US 15:31
PROVIDERS: PCP Family Medicine; Visit Provider Family Medicine
DX: R42 Dizziness and giddiness (principal)
CPT/HCPCS: 93880

== ENCOUNTER → 2025-02-03 15:41 | Outpatient (BNV) | payer MEDICAID, SELFPAY | PROVIDERS: PCP Family Medicine; Visit Provider Radiology Diagnostic Radiology | DX: R42 Dizziness and giddiness (principal) | CPT/HCPCS: 93880 ==

== ENCOUNTER 2025-02-24 11:19 | Outpatient (REF) | payer MEDICAID, SELFPAY ==
--- NOTE | ~2025-02-24 | CT_ITS ---
EXAMINATION: CT CHEST WITHOUT IV CONTRAST INDICATION: R93.1 - Abnormal findings on diagnostic imaging of heart. Evaluate for pericardial cyst. COMPARISON: There are no prior studies available for comparison. TECHNIQUE: Helical CT scan of the chest was performed without intravenous contrast. Coronal and sagittal reformatted images were generated and reviewed. This CT exam was performed with one or more of the following dose reduction techniques: automated exposure control, adjustment of the mA and/or kV according to patient size, use of iterative reconstruction technique. DLP: 115 mGy-cm CHEST: THYROID: The thyroid is unremarkable. LUNGS: The lungs are clear. MEDIASTINUM: Triangular soft tissue in the anterior mediastinum is consistent with residual thymus. There are tiny calcified subcarinal lymph nodes. There is no mediastinal lymphadenopathy. LUIS FERNANDO: There are tiny calcified right hilar lymph nodes. Evaluation of the hilar regions is limited by lack of intravenous contrast material. CARDIOVASCULATURE: The heart is normal in size. There is a moderate pericardial fluid at the base of the heart. No discrete pericardial cyst is identified although evaluation is limited by lack of intravenous contrast material. The thoracic aorta is normal in caliber. DEGREE OF CORONARY CALCIFICATION: none PLEURA: There is no pleural effusion. No pneumothorax. MAIN AIRWAYS: The mainstem bronchi and proximal branches are patent. AXILLA: There is no axillary lymphadenopathy. BONES AND SOFT TISSUES: Unremarkable UPPER ABDOMEN: The visualized portions of the liver, spleen, and adrenals have an unremarkable unenhanced appearance. CT/CT chest wo IV con IMPRESSION: Small amount of pericardial fluid. No discrete cyst is seen, although evaluation is limited by lack of intravenous contrast material. If there remains clinical concern for a pericardial cyst, contrast-enhanced CT or MRI is recommended. Electronically signed by: Bernardo Ortiz MD 02/24/2025 12:28 PM [facility] [place]
--- OUTSIDE RECORDS SUMMARY | 2025-02-24 11:22 | XMS_ITS | Clinical Summary ---
Author Organization [facility] Address [address] [place] [address] Care Team Providers Care Fruit Or Nut Farmer Name Role Phone Unavailable Primary Care Provider [...] Screening 04/24/2023 Depression Screening 03/30/2024 COVID-19 Vaccine (1 - 2024-2 6 season) 2024 Influenza Vaccine (#1) 2024 RSV [...]
== END 2025-02-24 11:20 | disposition home or self-care (01) ==
LOC: HO.CT 11:19
PROVIDERS: PCP Family Medicine; Visit Provider Nurse Practitioner Family
DX: R93.1 Abnormal findings on diagnostic imaging of heart and coronary circulation (principal)
CPT/HCPCS: 71250

== ENCOUNTER → 2025-02-24 11:22 | Outpatient (BNV) | payer MEDICAID, SELFPAY | PROVIDERS: PCP Family Medicine; Visit Provider Radiology Diagnostic Radiology | DX: R93.1 Abnormal findings on diagnostic imaging of heart and coronary circulation (principal) | CPT/HCPCS: 71250 ==

== ENCOUNTER 2025-03-03 02:14 | Emergency (ER) | payer MEDICAID, SELFPAY ==
--- OUTSIDE RECORDS SUMMARY | 2025-03-02 20:40 | XMS_ITS | Encounter Summary ---
Author Organization [employer] Address [address] [place] [address] Care Team Providers Care Fitness Assistant Name Role Phone Unavailable Primary Care Provider Unavailabl e Reason for Visit * Reason Comments Dental Pain LEFT SIDED DENTAL PA IN Encounter Details Date Type Department Care Team (Late st Contact Info) Description 03/02/2025 8:40 PM EST - 03/03/2025 1:26 AM EST Emergency [facility] Emergency [address] [place] [address] Discharge Disposition: Home or Self Care Social History Tobacco Use Types Packs/Day Years Used Date Smoking Tobacco: Never Assessed Comments No Sex and Gender Information Value Date Recorded Sex Assigned at Not on file Legal Sex Female 8:43 PM EST Gender Identity Not on file Sexual Orientation Not on file documented as of this encounter Last Filed Vital Signs Vital Sign Reading Time Taken Comments Blood Pressure 111/100 03/02/2025 8:48 PM EST Pulse 67 03/02/2025 8:48 PM EST Temperature 36.9 C (98.4 F) 03/02/2025 8:48 PM EST Respiratory Rate 20 03/02/2025 8:48 PM EST Oxygen Saturation 100% 03/02/2025 8:48 PM EST Inhaled Oxygen Concentration - - Weight 50.8 kg (112 lb) 03/02/2025 8:48 PM EST Height 162.6 cm (5' 4 ) 03/02/2025 8:48 PM EST Body Mass Index 19.22 03/02/2025 8:48 PM EST documented in this encounter Functional Status * Calculated C-SSRS Risk Score (Lifetime/Recent) Answer Date of Assessment Author No Risk Indicated 03/02/2025 9:33 PM EST Amy Weinstein RN * [place] Suicide Severity Rating Scale (Screener/Recent Self-Report) Question Answer Date of Assessment Author 1. Wish to be (Past 1 Month) No 025 9:33 PM EST Amy Weinsetin RN 2. Non-Specific Active Suici sri Thoughts (Past 1 Month) No 03/02/2025 9:33 PM EST Deborah Weinstein RN 6. Suicidal Behavior (Lifetime) No 9:33 PM EST Amy Weinstein RN documented as of this encounter Discharge Disposition Disposition Code Departure Means Destination Home or Self Care documented in this encounter Progress Notes * Amy Weinstein RN - 03/02/2025 8:49 PM EST PT C/O LEFT SIDED DENTAL PAIN. PT HAD A ROOT CANAL YESTERDAY ON THE RIGHT SIDE. NO DRAINAGE OR FEVERS documented in this encounter Plan of Treatment Not on file documented as of this encounter Visit Diagnoses Not on filedocumented in this encounter
[2025-03-03 02:21] VITALS: BP 136/90; PULSE 97; RESP 18; TEMP 36.8; O2SAT 98; BMI 19.3
--- NOTE | 2025-03-03 02:27 | ED_ITS ---
HPI - Dental/Oral General Chief complaint: Dental/Oral Stated complaint: Dental Pain Time Seen by Provider: 03/03/25 02:20 Source: patient Mode of arrival: ambulatory Limitations: no limitations History of Present Illness ED Provider: Dr. Lucia Slaughter HPI Narrative: Patient comes to the emergency room complaining of dental pain on the left mandibular side. Patient states that yesterday she had a root canal in the right side, and today she is having pain on the left. Patient admits that she has poor dentition . Patient denies any fever chills. Patient states that she has an appointment pending with her dentist. Patient has been made aware by her dentist that she needs to have some kind of procedure for the left mandibular side Related Data Previous Rx's ?Medication ?Instructions ?Recorded prenat.vits,karina,[id number] 1 tab PO BEDTIME Pregna ncy #30 tabs 01/15/22 meclizine 25 mg tablet 25 mg PO TID PRN dizziness # 20 tabs 10/06/24 amoxicillin 500 mg tablet 500 mg PO TID 10 days #30 ta bs 03/03/25 ketorolac 10 mg tablet 10 mg PO Q8H PRN pain #12 ta bs 03/03/25 Allergies Allergy/AdvReac Type Severity Reaction Status Date / Time merced (MERCED) Allergy Unknown ANGIOEDEMA Verified 03/03/25 02:23 pollen extracts (POLLEN) Allergy Unknown ITCHY EYES Verified 03/03/25 02:23 SEAFOOD Allergy Unknown ANAPHYLAXIS Uncoded 01/26/25 14:12 Review of Systems Review of Systems: Constitutional : No Weight loss, No Fever, No Chills, No Night Sweats, No Fatigue, No Malaise ENT/Mouth : Complaining of dental pain on the left mandibular side No Hearing loss, No Ear Pain, No Nasal Congestion, No Sinus Pain, No Hoarseness, No sore throat, No Rhinorrhea, No Swallowing Difficulty Eyes: No Eye Pain, No Swelling, No Redness, No Foreign Body, No Discharge, No Vision Changes Cardiovascular : No Chest Pain, No SOB, No Dyspnea on Exertion, No Orthopnea, No Edema, No Palpitations Respiratory : No Cough, No Sputum, No Wheezing, No Smoke Exposure, No Dyspnea Gastrointestinal : No Nausea, No Vomiting, No Diarrhea, No Constipation, No abdominal Pain, No Hematochezia, No Melena Genitourinary : no irregular bleeding, No Dysuria, No Urinary Frequency, No Hematuria, No Urinary Incontinence, No Urgency, No Flank Pain, No Urinary Flow Changes, No Hesitancy Musculoskeletal : No joint pain, No Myalgias, No Joint Swelling Skin : No Skin Lesions, No rash Neuro : No Weakness, No Numbness, No Paresthesias, No Loss of Consciousness, No Dizziness, No Headache Psych : No Anxiety/Panic, No Depression, No SI/HI/AH/VH, No Social Issues, Heme/Lymph: No Bruising, No Bleeding,No Lymphadenopathy Endocrine : No Polyuria, No Polydipsia, No Temperature Intolerance [facility] Past Medical History Medical History HSV-2 infection History of asthma Family History Family History Maternal Grandmother CVD (cardiovascular disease) Maternal Grandfather History of heart attack Heart murmur Paternal Grandmother No problems noted. Maternal Uncle History of colon cancer Social History Social History Household Members: Significant Other and Children Housing: Apartment Alcohol intake: never Patient Tobacco Use Status: Never used Tobacco Do you have a plan to hurt others: No Plan Current occupational status: unemployed Sexual orientation: Straight/Heterosexual Gender identity: Female Physical Exam Exam: Exam: Appearance: Alert. Oriented X3. No acute distress. Eyes: Pupils equal, round and reactive to light. ENT: Pharynx normal. Patient has poor dentition, cracked molar on the left mandibular side, no obvious abscess, no gingival swelling Neck: Normal inspection. Neck supple. No lymph nodes noted. No crepitus CVS: Normal heart rate and rhythm. Pulses normal. Normal S1 and S2 Respiratory: No respiratory distress. Breath sounds normal. No Wheezing. No rales Abdomen: Soft and nontender. No rigidity. No distention. Skin: Skin warm and dry. Normal skin color. Normal skin turgor. Extremities: No lower extremity edema. No Lacerations. No Rash Neuro: Oriented X 3. No motor deficit. No sensory deficit. Moving all extremities. No slurred speech. CN 2 through 12 grossly intact Psych: calm, cooperative, normal affect Vital Signs: Vital Signs: Last Vital Signs Temp 98.2 F 03/03/25 02:21 Pulse 97 03/03/25 02:21 Resp 18 03/03/25 02:21 BP 136/90 H 03/03/25 02:21 Pulse Ox 98 03/03/25 02:21 O2 Del Method Room Air 03/03/25 02:21 BMI result Body Mass Index 19.3 Course Course Course Narrative: Discussed with the patient that we can start her on antibiotics and pain medication. Patient agrees with plan. Patient is adamant that there is no way that she could possibly be . Medical Decision Making Medical Decision Making [facility] Narrative: Patient does not seem to have an abscess that could be drained. Patient was given p.o. amoxicillin and IM Toradol. Patient already has an appointment pending with her dentist Discharge Plan Discharge Clinical Impression: Pain, dental, Toothache Patient Disposition: Home, Self-Care Instructions: Toothache (ED) Additional Instructions: Please follow-up with your primary care physician tomorrow. If you have any worsening or new symptoms, please return to the emergency room or call 911 Prescriptions: New ketorolac 10 mg tablet 10 mg PO Q8H PRN (Reason: pain) Qty: 12 0RF Rx Instructions: maximum total duration of 5 days from all oral, intranasal, or parenteral formulations amoxicillin 500 mg tablet 500 mg PO TID 10 Days Qty: 30 0RF No Action prenat.vits,karina,[id number] Tablet 1 tab PO BEDTIME Qty: 30 0RF meclizine 25 mg tablet 25 mg PO TID PRN (Reason: dizziness) Qty: 20 0RF Print Language: Danish
[2025-03-03 02:34] VITALS: BP 136/90; PULSE 97; RESP 18; TEMP 36.8; O2SAT 98
--- OUTSIDE RECORDS SUMMARY | 2025-03-03 02:39 | XMS_ITS | Clinical Summary ---
Author Organization [employer] [facility] Address [address] [place] [address] Care Team Providers Care Client Delivery Manager Name Role Phone Unavailable Primary Care Provider Unavailabl e Allergies Active Allergy Reactions Criticality Noted Date Comments Angel 03/02/2025 Shellfish Derived 03/02/2025 Encounters Date Type Department Care Team Description 03/02/2025 8:40 PM EST - 03/03/2025 1:26 AM EST Emergency [facility] Emergency [address] [place] [address] Discharge Disposition: Home or Self Care from Last 3 Months Surgical History Surgery Date Site/Laterality Comments SECTION Medical History Medical History Date Comments Asthma Social History Tobacco Use Types Packs/Day Years Used Date Smoking Tobacco: Never Assessed Comments No Sex and Gender Information Value Date Recorded Sex Assigned at Not on file Legal Sex Female 8:43 PM EST Gender Identity Not on file Sexual Orientation Not on file Obstetrics History Last Filed Vital Signs Vital Sign Reading [...] Mass Index 19.22 03/02/2025 8:48 PM EST Plan of Treatment Health Maintenance Due Date Last Done Comments Gonorrhea/Chlamydia Screening 2000 Pneumococcal Vaccine: Pediatrics (0 to 5 Years) and At-Risk Patients (6 to 49 Years) (1 of 2 - PCV) 07/10/2019 Cervical Cancer Screening: Pap Smear 2021 HIV Screening 04/24/2023 Hepatitis C Screening 04/24/2023 Social Influencers of Health Screening 04/24/2023 Depression Screening 03/30/2024 COVID-19 Vaccine ( season) 2024 Influenza Vaccine (#1) 2024 03/18/2016 DTaP,Tdap,and Td Vaccines (9 - Td or Tdap) 07/11/2032 07/11/2022, 10/27/2018, 09/27/2012, Additional history exists RSV Immunization Adult Patients (1 - 1-dose 75+ series) 07/10/2075 MMR Vaccines Completed 07/20/2006, 02/13/2006 Meningococcal ACWY Vaccine Aged Out 09/27/2012, No longer eligible based on patient's age to complete this topic HPV Vaccines Completed 06/11/2016, 0703/2012, 2012, Additional history exists Hepatitis A Vaccines Completed 06/11/2016, 12/10/2010, 12/13/2009 IPV Vaccines Completed 06/11/2016, 11/28, 11/03/2006, Additional history exists Varicella Vaccines Completed 06/12/2016, 0 08/28/2008, 07/20/2006 Hepatitis B Vaccines Completed 01/16/2025, 12/19/2024, 11/03/2006, Additional history exists HIB Vaccines Aged Out No longer eligi ble based on patient's age to complete this topic Meningococcal B Vaccine Aged Out No l onger eligible based on patient's age to complete this topic RSV Immunization Patients Under 20 months Aged Out No longer eligible based on patient's age to complete this topic
--- OUTSIDE RECORDS SUMMARY | 2025-03-03 02:40 | XMS_ITS ---
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 Case Team Name Relationship Phone Chato Leary(Responsible Staff) [phone] Continued Care and Services Coordination
--- OUTSIDE RECORDS SUMMARY | 2025-03-03 02:40 | XMS_ITS | Clinical Summary ---
Demographics Address [address] [place] [address] Mobile Phone Home Phone Email Address Email Address Preferred Language en Marital Status Single Jewish Affiliation Unknown Race Other Race Ethnic Group Unknown Author Organization [employer] Address [address] [place] [address] [address] [place] [address] Care Team Providers Care Fan Runner Name Role Phone Sirena Burger DO Primary Care Provider Chato Leary Unavailable Allergies Active Allergy Reactions [...] intervention , Patient to reach out to [facility] team as needed, and Patient to engage in OP therapy Assessment & Plan (09/29/2024 3:58 PM EDT): Seems to have depression exacerbating underlying MDD, patient feels safe at home and is able to reach out for safety, she denies SI/HI. Patient was given [facility] crisis number, she knows she can reach out to therapist or [facility] prn worsening sxs. Start sertraline 25 mg and follow-up with PCP in 6 weeks. She has supportive partner and will reach out to lock fitter to support her with her older daughter throughout the summer so that she can focus on psychotherapy and her 3 younger kids. Gallstones 02/08/2024 Anxiety 02/08/2024 Mild intermittent asthma 05/06/2017 Encounters Date Type Department Care Team Description 02/24/2025 Orders Only [facility] External Provider, [facility] 02/20/2025 Patient Outreach [facility] [address] [place] [phone] Sirena Burger DO Care Coordination ([facility]/CHANGELINE Guerra- HRSerena ADT Outreach) 02/10/2025 Patient Outreach [facility] [address] [place] [address] Chato Leary Care Coordination (C3CM/CHW Chato Leary, TC#3-ADT Outreach-LVM) 02/03/2025 Patient Outreach [address] [address] Sirena Burger DO Care Coordination ([facility]/ANGELINE Guerra#2- ADT Outreach-LVM) 01/27/2025 Patient Outreach [address] [address] Sirena Burger DO Care Coordination ([facility]/Cipriano Leary TC#1-ADT Outreach-LVM) 01/27/2025 Patient Outreach [address] [address] Sirena Burger DO Care Coordination ([facility]/Cipriano Leary, Chart Review) 01/27/2025 Patient Outreach [address] [address] Sirena Burger DO Care Management ([facility] chart review) 01/27/2025 Patient Outreach [address] [address] Sirena Burger DO 01/16/2025 1:30 PM EDT Clinical Support [address] [address] Jennifer Estrella, DENIS Encounter for immunization 01/16/2025 Travel 01/04/2025 Patient Outreach [facility] [address] [place] [address] Sirena Burger DO Care Coordination (C3/ Outreach) 12/19/2024 1:30 PM EDT Clinical Support [address] [address] Bruna Sorto, DENIS Encounter for immunization 12/19/2024 Travel 12/16/[address] [address] Sirena Burger DO Immunizations 12/09/2024 Patient Outreach [facility] [address] [place] [address] Sirena Burger DO 12/07/2024 11:30 AM EDT Office Visit [facility] [address] [place] [address] Sirena Burger DO Dizziness (Primary Dx); Palpitations 12/07/2024 Travel 12/05/2024 Telephone [facility] [address] [place] [address] Sirena Burger DO Chart Prep 12/02/2024 Patient Outreach [facility] [address] [place] [address] Sirena Burger DO Care Coordination (C3/CM Outreach) [...] is your housing situation today? I have housing today, but I am worried about losing housing in the future 02/20/[address] you li ve. Do you have problems with any of the following? None of the above 02/20/2025 Food Insecurity Answer Date Recorded Within the [...] t he electric, gas, oil or water [employer] threatened to shut off services in your [...] PCV) 07/10/2019 Pap Smear 2021 COVID-19 Vaccine (1 - season) 2024 Influenza Vaccine (#1) 2024 03/18/2016, 2015 Alcohol/Substance Use Screening 09/29/2025 09/29/2024 Depression Screening 09/29/2025 09/29/2024, 09/30/19 25 Disability Screening 09/29/2025 09/29/2024 Family Planning (PISQ) [...] Procedure Name Priority Date/Time Associated Diagnosis Comments CT CHEST WO CONTRAST Routine 02/24/2025 11:36 AM EST VASC US CAROTID ARTERY DUPLEX BILATERAL Routine [...] Recently Relevant to Health Maintenance Results * CT Chest w/o Contrast (02/24/2025 11:36 AM EST) Anatomical Region Laterality Modality Body, Chest Computed Tomogra phy 02/24/2025 11:3 6 AM EST Narrative 02/24/2025 12:31 PM EST [address] [address] [address] Scan Report Signed Patient: Colleen Mart Srinath#: [id number] : 2000 Acct:[id number] Age/Sex: 24 / F ADM Date: 02/24/25 Loc: HO.CT Attending Dr: Brandi VARNER Ordering Physician: Brandi Martinez Date of Service: 02/24/25 Procedure(s): CT chest wo IV con Accession Number(s): [id number] cc: Brandi Martinez; Sirena Burger DO Report Number: [id number]: Total DLP = 115.00 mGy-cm Reason for Exam: R93.1 - Abnormal findings on diagnostic imaging of heart and coronary ci... EXAMINATION: CT CHEST WITHOUT IV CONTRAST INDICATION: R93.1 - Abnormal findings on diagnostic imaging of heart. Evaluate for pericardial cyst. COMPARISON: There are no prior studies available for comparison. TECHNIQUE: Helical CT scan of the chest was performed without intravenous contrast. Coronal and sagittal reformatted images were generated and reviewed. This CT exam was performed with one or more of the following dose reduction techniques: automated exposure control, adjustment of the mA and/or kV according to patient size, use of iterative reconstruction technique. DLP: 115 mGy-cm CHEST: THYROID: The thyroid is unremarkable. LUNGS: The lungs are clear. MEDIASTINUM: Triangular soft tissue in the anterior mediastinum is consistent with residual thymus. There are tiny calcified subcarinal lymph nodes. There is no mediastinal lymphadenopathy. LUIS FERNANDO: There are tiny calcified right hilar lymph nodes. Evaluation of the hilar regions is limited by lack of intravenous contrast material. CARDIOVASCULATURE: The heart is normal in size. There is a moderate pericardial fluid at the base of the heart. No discrete pericardial cyst is identified although evaluation is limited by lack of intravenous contrast material. The thoracic aorta is normal in caliber. DEGREE OF CORONARY CALCIFICATION: none PLEURA: There is no pleural effusion. No pneumothorax. MAIN AIRWAYS: The mainstem bronchi and proximal branches are patent. AXILLA: There is no axillary lymphadenopathy. BONES AND SOFT TISSUES: Unremarkable UPPER ABDOMEN: The visualized portions of the liver, spleen, and adrenals have an unremarkable unenhanced appearance. CT/CT chest wo IV con IMPRESSION: Small amount of pericardial fluid. No discrete cyst is seen, although evaluation is limited by lack of intravenous contrast material. If there remains clinical concern for a pericardial cyst, contrast-enhanced CT or MRI is recommended. Electronically signed by: Bernardo Ortiz MD 02/24/2025 12:28 PM [facility] [place] Dictated By: Bernardo Ortiz MD Signed By: <Electronically signed by Bernardo Ortiz MD in OV> 02/24/25 1228 DD/ 1136 TD/TT: 02/24/25 1211 Gripper Attacher: Procedure Note Donotuseinterpreter, Image - 02/24/[address] [place] [address] [address] Scan Report Signed Patient: Colleen Mart R#: [id number] : 2000Acct:[id number] Age/Sex: 24 / FADM Date: 02/24/25 Loc: HO.CT Attending Dr: Brandi VARNER Ordering Physician: Brandi Martinez Date of Service: 02/24/25 Procedure(s): CT chest wo IV con Accession Number(s): [id number] cc: Brandi Martinez; Sirena Burger DO Report Number: [id number]: Total DLP = 115.00 mGy-cm Reason for Exam: R93.1 - Abnormal findings on diagnostic imaging of heartand coronary ci... EXAMINATION: CT CHEST WITHOUT IV CONTRAST INDICATION: R93.1 - Abnormal findings on diagnostic imaging of heart. Evaluate for pericardial cyst. COMPARISON: There are no prior studies available for comparison. TECHNIQUE: Helical CT scan of the chest was performed without intravenous contrast. Coronal and sagittal reformatted images were generated and reviewed. This CT exam was performed with one or more of the following dose reduction techniques: automated exposure control, adjustment of the mA and/or kV according to patient size, use of iterative reconstruction technique. DLP: 115 mGy-cm CHEST: THYROID: The thyroid is unremarkable. LUNGS: The lungs are clear. MEDIASTINUM: Triangular soft tissue in the anterior mediastinum is consistent with residual thymus. There are tiny calcified subcarinal lymph nodes. There is no mediastinal lymphadenopathy. LUIS FERNANDO: There are tiny calcified right hilar lymph nodes. Evaluation of the hilar regions is limited by lack of intravenous contrast material. CARDIOVASCULATURE: The heart is normal in size. There is a moderate pericardial fluid at the base of the heart. No discrete pericardial cyst is identified although evaluation is limited by lack of intravenous contrast material. The thoracic aorta is normal in caliber. DEGREE OF CORONARY CALCIFICATION: none PLEURA: There is no pleural effusion. No pneumothorax. MAIN AIRWAYS: The mainstem bronchi and proximal branches are patent. AXILLA: There is no axillary lymphadenopathy. BONES AND SOFT TISSUES: Unremarkable UPPER ABDOMEN: The visualized portions of the liver, spleen, and adrenals have an unremarkable unenhanced appearance. CT/CT chest wo IV con IMPRESSION: Small amount of pericardial fluid. No discrete cyst is seen, although evaluation is limited by lack of intravenous contrast material. If there remains clinical concern for a pericardial cyst, contrast-enhanced CT or MRI is recommended. Electronically signed by: Bernardo Ortiz MD 02/24/2025 12:28 PM [facility] [place] Dictated By: Bernardo Ortiz MD Signed By: <Electronically signed by Bernardo Ortiz MD in OV> 02/24/25 1228 DD/ 1136 TD/TT: 02/24/25 1211 Gripper Attacher: [facility] External Provider IMG CT PROCEDURES Final Result * Vascular US carotid artery duplex bilateral (02/03/2025 3:41 PM EST) 02/03/2025 3:41 PM EST Narrative [facility] - 02/03/2025 4:22 PM EST [address] [address] Ultrasound Report Signed Patient: Colleen Mart#: [id number] : 2000 Acct:[id number] Age/Sex: 24 / F ADM Date: 02/03/25 Loc: HO.US Attending Dr: Sirena Burger DO Ordering Physician: Sirena Burger DO Date of Service: 02/03/25 Procedure(s): US carotid duplex BI Accession Number(s): [id number] cc: Sirena Burger DO Reason for Exam: [...] by: Rocael Doty MD 02/03/2025 04:19 PM [facility] [place] Dictated By: Rocael Doty MD Signed By: <Electronically signed by Rocael Doty MD in OV> 02/03/25 1619 DD/ 1541 TD/TT: 02/03/25 1552 Gripper Attacher: Procedure Note Donotuseinterpreter, Image - 02/03/2025 [place] [address] Ultrasound Report Signed Patient: Colleen Mart R#: [id number] : 2000Acct:[id number] Age/Sex: Date: 02/03/25 Loc: . Attending Dr: Sirena Burger DO Ordering Physician: Sirena Burger DO Date of Service: 02/03/25 Procedure(s): US carotid duplex BI Accession Number(s): [id number] cc: Sirena Burger DO Reason for Exam: [...] by: Rocael Doty MD 02/03/2025 04:19 PM [facility] [place] Dictated By: Rocael Doty MD Signed By: <Electronically signed by Rocael Doty MD in OV> 02/03/25 1619 DD/ 1541 TD/TT: 02/03/25 1552 Gripper Attacher: us Sirena Burger DO CV VASCULAR PROCEDURES Final Result [facility] [address] [place] [phone] * High Sensitivity Troponin I (01/26/2025 2:40 PM EDT) TROPONIN I HIGH SENSITIVITY <2.7 <3.5 - 17.0 ng/L [facility] Comment:The Mcelroy high sens itivity Troponin-I results should beused in conjunction with other diagnostic information suchas ECG, clinical observations and information, and patientsymptoms to aid in the diagnosis of AL. 01/26/2025 2:40 PM EDT 01/26/2025 2:54 PM EDT us Generic External Data Provider LAB BLOOD ORDERAB LES Final Result [facility] [address] [place] [address] [phone] * (ABNORMAL) CBC auto differential (01/26/2025 2:40 PM EDT) White Blood Count 5.4 4.8 - 10.8 X10*3/uL [facility] Red Blood Count 4.37 4.20 - 5.50 X10*6/uL [facility] Hemoglobin 11.1(L) 12.0 - 16.0 g/dl [facility] Hematocrit 37.1 37.0 - 47.0 % [facility] Mean Corpuscular Volume 84.9 80.0 - 98.0 fL [facility] Mean Corpuscular Hemoglobin 25.4(L) 27.0 - 33.0 pg [facility] Mean Corpuscular HGB Conc 29.9(L) 31.0 - 35.0 g/dl [facility] Red Cell Distribution Width 14.5 11.0 - 16.0 % [facility] Platelet Count 278 160 - 400 X10*3/uL [facility] Mean Platelet Volume 9.7 9.4 - 12.3 fL [facility] Neutrophils Percent Auto 64.8 45 - 73 % [facility] Imm Gran Pct Auto 0.2 0.0 - 0.4 % [facility] Lymphocytes Percent Auto 24.6 20 - 40 % [facility] Monocytes Percent Auto 7.8 2 - 11 % [facility] Eosinophils Percent Auto 2.2 0 - 4 % [facility] Basophils Percent Auto 0.4 0 - 2 % [facility] NRBC Pct Auto 0.0 0.0 - 0.2 /100WBC [facility] Neutrophils Absolute Auto 3.5 2.0 - 8.3 x10*3/uL [facility] Imm Gran Abs Auto 0.01 0.00 - 0.03 X10*3/uL [facility] Lymphocytes Absolute Auto 1.3 1.2 - 4.9 X10*3/uL [facility] Monocytes Absolute Auto 0.4 0.1 - 1.2 X10*3/uL [facility] Eosinophils Absolute Auto 0.1 0.0 - 0.4 X10*3/uL [facility] Basophils Absolute Auto 0.0 0.0 - 0.2 X10*3/uL [facility] NRBC Abs Auto 0.000 0.0 - 0.012 X10*3/uL [facility] 01/26/2025 2:40 PM EDT 01/26/2025 2:54 PM EDT Generic External Data Provider LAB BLOOD ORDERAB LES Final Result Performing Organization Address [facility] de Phone Number [facility] [address] [place] [phone] * Partial Thromboplastin Time, Activated (APTT) (01/26/2025 2:40 PM EDT) Partial Thromboplastin Time 31.5 26.7 - 34.1 SEC [facility] 01/26/2025 2:40 PM EDT 01/26/2025 2:54 PM EDT Generic External Data Provider LAB BLOOD ORDERAB LES Final Result Performing Organization Address [facility] de Phone Number [facility] [address] [place] [phone] * Prothrombin Time-INR (01/26/2025 2:40 PM EDT) Prothrombin Time 11.5 10.9 - 12.4 SEC [facility] INTERNATIONAL NORM RATIO 1.0 0.9 - 1.1 [facility] Comment:INTERNATIONAL NORMAL IZED RATIO (INR) [...] ORDERAB LES Final Result Performing Organization Address City/[facility]/ZIP Co de Phone Number [facility] [address] [place] [phone] * hCG, Total, Quantitative (01/26/2025 2:40 PM EDT) [facility] HCG Quantitative <2 mIU/mL [facility] Comment:Weeks post LMP Appro ximate hCG(Last Menstrual Period) Range (mIU/ml)3 - 4 weeks 9 - 1304 - 5 weeks 75 - 2,6005 - 6 weeks 850 - 20,8006 - 7 weeks 4000 - 100,2007 - 12 weeks 11,500 - 289,18406 - 16 weeks 18,300 - 137,97573 - 29 weeks (2nd trimester) 1,400 - 53,38109 - 41 weeks (3rd trimester) 940 - [...] ORDERAB LES Final Result Performing Organization Address [facility]/ZIP Co de Phone Number [facility] [address] [place] [phone] * Magnesium (01/26/2025 2:40 PM EDT) Magnesium 2.1 1.6 - 2.6 mg/dL [facility] 01/26/2025 2:40 PM EDT 01/26/2025 2:54 PM EDT us Generic External Data Provider LAB BLOOD ORDERAB LES Final Result [facility] [address] [place], [place] [phone] * (ABNORMAL) Comprehensive Metabolic Panel (01/26/2025 2:40 PM EDT) Pathologist [facility] Sodium 142 135 - 145 mmol/L [facility] Potassium 3.5 3.3 - 5.1 mmol/L [facility] Chloride 109(H) 96 - 108 mmol/L [facility] Carbon Dioxide 28 22 - 29 mmol/L [facility] Anion Gap 9(L) 12 - 20 [facility] Urea Nitrogen (BUN) 9 9 - 16 mg/dL [facility] Creatinine, Serum 0.63 0.5 - 1.4 mg/dL [facility] Creatinine Clr Calc Pharmacy 107.4 [facility] Comment:Provided height and weight: 162.56 cm,49.442 kg.eGFR (calculated from the MDRD study equation) and eCrCl(calculated from the Cockcroft-Gault equation) are based ondifferent parameters and may not yield comparable results.If eCrCl result is absurd, please check patient'sheight/weight. Estimated Glomerular Filt Rate >60 [facility] Comment:Chronic Kidney Disea se: Estimated GFR < 60 mL/min/1.46n1Tdehzd Kidney Disease: Estimated GFR < 15 mL/min/1.73m2 Glucose 113 60 - 115 mg/dL [facility] Calcium 8.9 8.4 - 10.2 mg/dL [facility] Bilirubin, Total 0.4 0.0 - 1.0 mg/dL [facility] Aspartate Amino Transferase 19 5 - 31 U/L [facility] Alanine Aminotransferase 17 0 - 31 U/L [facility] Total Protein 7.2 6.5 - 8.0 g/dL [facility] Albumin Level 4.6 3.5 - 5.0 g/dL [facility] Alkaline Phosphatase 58 39 - 117 U/L [facility] 01/26/2025 2:40 PM EDT 01/26/2025 2:54 PM EDT us Generic External Data Provider LAB BLOOD ORDERAB LES Final Result Performing Organization Address City/[facility]/ZIP Co de Phone Number [facility] [address] [place] [phone] [phone] * Hepatitis C Antibody (05/16/2020 9:50 AM EST) Hepatitis C Antibody Nonreactive Nonreactive [facility] Comment: Antibodies to HCV not detected; does not exclude early acute HCV infection. HIV AB/AG Nonreactive Nonreactive [facility] Comment: HIV-1 p24 Ag and/or [...] of detection of this assay. The Mcel[employer] Kiln Worker HIV Ag/Ab Combo assay result and supplemental assay results should be interpreted in conjunction with the patient's clinical presentation, history and other laboratory results. If the results are inconsistent with clinical evidence, additional testing is suggested to confirm the result. Hepatitis B Surface Antigen Negative Negative [facility] 05/16/2020 9:50 AM EST Historical Provider HISTORICAL/NON ORDERABLE LABS Final Result Performing Organization Address City/[facility]/ZIP Co de Phone Number [facility] [address] from Last 3 Months or Most Recently Relevant to Health Maintenance [facility] C[facility] Care Teams Fan Runner Relationship Specialty Start Date End Date Sirena Burger DO [address] [place] [phone] PCP - General Family Medicine 01/20/24 Chato Leary 01/27/25
[2025-03-03 03:02] VITALS: BP 136/90; PULSE 97; RESP 18; TEMP 36.8; O2SAT 98
== END 2025-03-03 03:04 | disposition home or self-care (01) ==
PROVIDERS: Emergency Provider Emergency Medicine; PCP Family Medicine
DX: K08.89 Other specified disorders of teeth and supporting structures (principal)
CPT/HCPCS: 96372; 99284; J1885

== ENCOUNTER 2025-03-03 12:49 | Outpatient (AMB) | payer MEDICAID, SELFPAY ==
--- OUTSIDE RECORDS SUMMARY | 2025-03-02 20:40 | XMS_ITS | Encounter Summary ---
Author Organization [employer] Address [address] [place] [address] Care Team Providers Care Bee Farmer Name Role Phone Unavailable Primary Care Provider Unavailabl e Reason for Visit * Reason Comments Dental Pain LEFT SIDED DENTAL PA IN Encounter Details Date Type Department Care Team (Late st Contact Info) Description 03/02/2025 8:40 PM EST - 03/03/2025 1:26 AM EST Emergency [facility] Emergency [address] [place] [address] Discharge Disposition: Home or Self [...] 9:33 PM EST Amy Weinstein RN * [place] Suicide Severity Rating Scale (Screener/Recent Self-Report) Question Answer Date of Assessment Author 1. Wish to be (Past 1 Month) No 025 9:33 PM EST Amy Weinstein RN 2. Non-Specific Active Suici sri Thoughts [...]
--- NOTE | 2025-03-03 12:53 | MHC.OFFVIS ---
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 Required: No Information Interpreted: non-clinical & clinical Baseball Scout: Baseball Scout Present (Rocio Durand LPN) Accompanied by: Self / Same As Patient Allergies merced (MERCED) Allergy (Unknown, Verified 03/03/25 02:23) ANGIOEDEMA pollen extracts (POLLEN) Allergy (Unknown, Verified 03/03/25 02:23) ITCHY EYES SEAFOOD Allergy (Unknown, Uncoded 01/26/25 14:12) ANAPHYLAXIS Medication List - Last Reconciled 03/03/25 by Rocio Durand LPN amoxicillin 500 mg PO TID 10 days ketorolac 10 mg PO Q8H PRN meclizine 25 mg PO TID PRN prenat.vits,karina,tyo-hiyl-oqaoy 1 tab PO BEDTIME Is last menstrual period known: Yes Last menstrual period: 02/22/25 Do you need a note to return to daycare/school/sports/work: No HPI Comments Details: Pt presents today for ANNUAL exam She has the following concerns: intermittent vaginal itching She is in a relationship x several years. She denies any issues of DV. they have 5 children together. she agrees to gc/ct screening Exercise: daily walks Nutrition/calcium: adequate intake Contraception: partner has vasectomy, states he was confirmed 3 times Last Pap: external, pt will sign SHAE to obtain records , Last mammo: n/a, Plans to be a surrograte and is scheduled for embryo transplant in Mar 2025 she is also provided with a psychiatrist to help navigate anticipated emotional changes. pt denies any known family hx br/ov/colon cancer + hx HSV, requesting refill for Valtrex episodic tx unsure last outbreak PFSH Medical History (Updated 03/03/25 @ 13:25 by Debby Velasquez CNM) delivery delivered Early stage of Supervision of normal in second trimester First trimester bleeding Nausea/vomiting in Suspected anomaly, antepartum Hfflg-cup-zmdso fetus, third trimester Hx of preeclampsia, prior , currently Cholelithiasis HSV-2 infection History of asthma Surgical History (Updated 03/03/25 @ 14:03 by Debby Velasquez CNM) History of wisdom tooth extraction History of delivery Family History (Updated 03/03/25 @ 14:05 by Debby Velasquez CNM) Maternal Grandmother CVD (cardiovascular disease) Stomach cancer Maternal Grandfather History of heart attack Heart murmur Paternal Grandmother No problems noted. Maternal Uncle History of colon cancer Father No problems noted. Mother No problems noted. Sister No problems noted. Sister No problems noted. Sister No problems noted. Brother No problems noted. Brother No problems noted. Social History Household Members: Significant Other and Children Housing: Apartment Alcohol intake: never Patient Tobacco Use Status: Never used Tobacco Current occupational status: unemployed Sexual orientation: Straight/Heterosexual Gender identity: Female Female Reproductive History Menstrual Age of Menarche: 13 Date of last menstrual period: 02/22/25 control method: other (boyfriend has vasectomy) Total pregnancies: 6 Number of Living Children: 5 Date of last pap smear: 03/03/24 History of abnormal pap smear: No Review of Systems Const Reports no additional complaints Eyes Reports no additional complaints ENT Reports no additional complaints Card Reports no additional complaints Resp Reports no additional complaints GI Reports no additional complaints Reports as per [facility] Skin/Breast Reports system reviewed and no additional complaints, except as documented Physical Exam Vital Signs: BMI result Body Mass Index 18.7 Const General: cooperative, healthy appearing and no acute distress Orientation/consciousness: patient oriented x3 HEENT Head: Yes normal to inspection and Yes normocephalic Ears: external ears normal General nose exam: Normal external nose present Neck Neck: Yes normal visual inspection Chest Breast/axilla inspection: normal inspection of the breasts, normal inspection of the axillae and Other (No skin changes, peau d orange, or nipple discharge noted) Breast/axilla palpation: normal palpation of the breasts, normal palpation of the axillae and no axillary lymphadenopathy Resp Effort & Inspection: normal respiratory effort and able to speak in complete sentences GI Inspection: No distended Palpation (GI): Soft to palpation, nontender and no masses Percussion: Yes normal to percussion Rectal Exam - Female: No External hemorrhoid(s) present External Female Exam: normal external appearance and normal appearance of the urethra Speculum Exam - Vagina: normal appearance of the vagina and normal vaginal discharge Speculum Exam - Cervix: normal appearance of the cervix and normal palpation (neg CMT) Bimanual exam- vagina & uterus: normal bimanual exam, normal palpation (neg CMT), uterine mobility normal and non-tender Bimanual Exam- Adnexa, other: no masses and No adnexal tenderness Skin Other: generalized tattoos belly piercing General skin exam: no rashes or lesions noted Neuro General: patient oriented x3 and moves all extremities Extrem General: Yes full ROM Psych Speech and movement: Normal speech and movement present Affect: normal affect Attitude: cooperative Thought process: Normal thought process present Assessment & Plan Assessment & Plan (1) Well woman exam with routine gynecological exam: Code(s): Z01.419 - Encounter for gynecological examination (general) (routine) without abnormal findings (2) Screening breast examination: Code(s): Z12.39 - Encounter for other screening for malignant neoplasm of breast (3) Screening for malignant neoplasm of cervix: Code(s): Z12.4 - Encounter for screening for malignant neoplasm of cervix (4) Encounter for screening examination for sexually transmitted disease: Code(s): Z11.3 - Encounter for screening for infections with a predominantly sexual mode of transmission Plan During the visit, the following areas of concern were addressed: Monitoring of the menstrual cycle Pre conception counseling, including assuring a diet with sufficient and folic acid of where supplementation prior to conception, avoidance of alcohol, smoking or other harm for medications or drugs Regular exercise Healthy lifestyle STD strategies to avoid exposure Domestic violence Health Maintenance and Screening -Reviewed ASCCP guidelines for Paps and yearly (bi-yearly ) pelvic exam. -Reviewed and encouraged diet and exercise for cardiovascular and bone health -Reviewed breast self-awareness. Importance of yearly mammogram after age 40 (earlier if first-degree relative with breast cancer at a younger age ) Discuss use of 3 times per week weight-bearing exercise, vitamin D3 and servings of dietary calcium daily for bone health. -continue to follow with PCP for general medical care, immunizations. Screening strategies for colon cancer after age 50. Discussion of Kegel exercises for urinary incontinence Family and personal history of cancer reviewed. Genetic screening- not indicated The patient has BMI: 18 RTO one year or sooner prn Debby Velasquez CNM Note about provider documentation : If you or the patient named in this chart and are reviewing your medical notes, please note that medical documentation is often written with abbreviations and medical terminology, and directed for other providers who may be involved in your care as well. Documentation is critical to record what has happened, what tests were ordered, and so they are interpreted with the resulting diagnoses. These nodes have been made available for patient review but not specifically written for the patient. Important health information is always given to my patients in clinical instructions. Please review your after visit summary and our contact our clinical staff if you have any questions. Orders: Orders CT NG by PCR Vag/Cerv Today Z11.3 - Encounter for screening for infections with a predominantly sexual mode of transmission Bacterial Vaginosis Panel Today Z11.3 - Encounter for screening for infections with a predominantly sexual mode of transmission Pap Smear Today Z01.419 - Encounter for gynecological examination (general) (routine) without abnormal findings Medications: New valacyclovir (Valtrex) with an outbreak 1,000 mg PO Q12H 10 tabs 3RF 5 days Coding Level of Care Code Est Pt Prev Care 18-39y(55291) Diagnoses Well woman exam with routine gynecological exam Z01.419 Screening breast examination Z12.39 Screening for malignant neoplasm of cervix Z12.4 Encounter for screening examination for sexually transmitted disease Z11.3
[2025-03-03 13:02] VITALS: BMI 18.7
--- OUTSIDE RECORDS SUMMARY | 2025-03-03 16:39 | XMS_ITS | Clinical Summary ---
Demographics Address [address] [place] [address] Mobile Phone Home Phone Email Address Email Address Preferred Language en Marital Status Single Restoration Affiliation Unknown Race Other Race Ethnic Group Unknown Author Organization [employer] Address [address] [place] [address] [address] [place] [address] Care Team Providers Care Buzzle Buffer Name Role Phone Sirena Burger DO Primary [...] intervention , Patient to reach out to [facility] team as needed, and Patient to engage in OP therapy Assessment & Plan (09/29/2024 3:58 PM EDT): Seems to have depression exacerbating underlying MDD, patient feels safe at home and is able to reach out for safety, she denies SI/HI. Patient was given [facility] crisis number, she knows she can reach out to therapist or [facility] prn worsening sxs. Start sertraline 25 mg and follow-up with PCP in 6 weeks. She has supportive partner and will reach out to controls engineer to support her with her older daughter throughout the summer so that she can focus on psychotherapy and her 3 younger kids. Gallstones 02/08/2024 Anxiety 02/08/2024 Mild intermittent asthma 05/06/2017 Encounters Date Type Department Care Team Description 02/24/2025 Orders Only [facility] External Provider, [facility] 02/20/2025 Patient Outreach [facility] [address] [place] [address] Sirena Burger DO Care Coordination (C3CM/CHANGELINE Guerra- HRSerena ADT Outreach) 02/10/2025 Patient Outreach [facility] [address] [place] [address] Chato Leary Care Coordination (C3CM/CHW Chato Leary, TC#3-ADT Outreach-LVM) 02/03/2025 Patient Outreach [address] [address] Sirena Burger DO Care Coordination ([facility]/ANGELINE Guerra#2- ADT Outreach-LVM) 01/27/2025 Patient Outreach [address] [address] Sirena Burger DO Care Coordination ([facility]/Cipriano Leary TC#1-ADT Outreach-LVM) 01/27/2025 Patient Outreach [address] [address] Sirena Burger DO Care Coordination ([facility]/Cipriano Leary, Chart Review) 01/27/2025 Patient Outreach [address] [address] Sirena Burger DO Care Management ([facility] chart review) 01/27/2025 Patient Outreach [address] [address] Sirena Burger DO 01/16/2025 1:30 PM EDT Clinical Support [address] [address] Jennifer Estrella, DENIS Encounter for immunization 01/16/2025 Travel 01/04/2025 Patient Outreach [facility] [address] [place] [address] Sirena Burger DO Care Coordination (C3/ Outreach) 12/19/2024 1:30 PM EDT Clinical Support [address] [address] Bruna Sorto, DENIS Encounter for immunization 12/19/2024 Travel 12/16/[address] [address] Sirena Burger DO Immunizations 12/09/2024 Patient Outreach [facility] [address] [place] [address] Sirena Burger DO 12/07/2024 11:30 AM EDT Office Visit [facility] [address] [place] [address] Sirena Burger DO Dizziness (Primary Dx); Palpitations 12/07/2024 Travel 12/05/2024 Telephone [facility] [address] [place] [address] Sirena Burger DO Chart Prep 12/02/2024 Patient Outreach [facility] [address] [place] [address] Sirena Burger DO Care Coordination (C3/CM Outreach) [...] t he electric, gas, oil or water [employer] threatened to shut off services in your [...] AM EST Narrative 02/24/2025 12:31 PM EST [address] [address] [address] Scan Report Signed Patient: Colleen Mart Srinath#: [id number] : 2000 Acct:[id number] Age/Sex: 24 / F ADM Date: 02/24/25 Loc: HO.CT Attending Dr: Brandi VARNER Ordering Physician: Brandi Martinez Date of Service: 02/24/25 Procedure(s): CT chest wo IV con Accession Number(s): [id number] cc: Brandi Martinez; Sirena Burger DO Report Number: [id number]: Total DLP = 115.00 mGy-cm Reason for [...] by: Bernardo Ortiz MD 02/24/2025 12:28 PM [facility] Dictated By: Bernardo Ortiz MD Signed By: <Electronically signed by Bernardo Ortiz MD in OV> 02/24/25 1228 DD/ 1136 TD/TT: 02/24/25 1211 Digital Marketing Specialist: Procedure Note Donotuseinterpreter, Image - 02/24/[address] [place] [address] [address] Scan Report Signed Patient: Colleen Mart R#: [id number] : 2000Acct:[id number] Age/Sex: 24 / FADM Date: 02/24/25 Loc: HO.CT Attending Dr: Brandi VARNER Ordering Physician: Brandi Martinez Date of Service: 02/24/25 Procedure(s): CT chest wo IV con Accession Number(s): [id number] cc: Brandi Martinez; Sirena Burger DO Report Number: [id number]: Total DLP = 115.00 mGy-cm Reason for [...] by: Bernardo Ortiz MD 02/24/2025 12:28 PM [facility] Dictated By: Bernardo Ortiz MD Signed By: <Electronically signed by Bernardo Ortiz MD in OV> 02/24/25 1228 DD/ 1136 TD/TT: 02/24/25 1211 Digital Marketing Specialist: [facility] External Provider IMG CT PROCEDURES Final Result * Vascular US carotid artery duplex bilateral (02/03/2025 3:41 PM EST) 02/03/2025 3:41 PM EST Narrative [facility] - 02/03/2025 4:22 PM EST [address] [address] Ultrasound Report Signed Patient: Colleen Mart#: [id number] : 2000 Acct:[id number] Age/Sex: 24 / F ADM Date: 02/03/25 Loc: HO.US Attending Dr: Sirena Burger DO Ordering Physician: Sirena Burger DO Date of Service: 02/03/25 Procedure(s): US carotid duplex BI Accession Number(s): [id number] cc: Sirena Burger DO Reason for Exam: [...] 02/03/25 1619 DD/ 1541 TD/TT: 02/03/25 1552 Digital Marketing Specialist: Procedure Note Donotuseinterpreter, Image - 02/03/2025 [place] [address] Ultrasound Report Signed Patient: Colleen Mart R#: [id number] : 2000Acct:[id number] Age/Sex: Date: 02/03/25 Loc: . Attending Dr: Sirena Burger DO Ordering Physician: Sirena Burger DO Date of Service: 02/03/25 Procedure(s): US carotid duplex BI Accession Number(s): [id number] cc: Sirena Burger DO Reason for Exam: [...] 02/03/25 1619 DD/ 1541 TD/TT: 02/03/25 1552 Digital Marketing Specialist: us Sirena Burger DO CV VASCULAR PROCEDURES Final Result [facility] [address] [place] [address] * High Sensitivity Troponin I (01/26/2025 2:40 PM EDT) TROPONIN I HIGH SENSITIVITY <2.7 <3.5 - 17.0 ng/L [facility] Comment:The Mcelroy high sens itivity Troponin-I results should beused in conjunction with other diagnostic information suchas ECG, clinical observations and information, and patientsymptoms to aid in the diagnosis of GA. 01/26/2025 2:40 PM EDT 01/26/2025 2:54 PM EDT us Generic External Data Provider LAB BLOOD ORDERAB LES Final Result [facility] [address] [place] [address] [phone] * (ABNORMAL) CBC auto differential (01/26/2025 2:40 PM EDT) White Blood Count 5.4 4.8 - 10.8 X10*3/uL [facility] Red Blood Count 4.37 4.20 - 5.50 X10*6/uL [facility] Hemoglobin 11.1(L) 12.0 - 16.0 g/dl [facility] Hematocrit 37.1 37.0 - 47.0 % [facility] Mean Corpuscular Volume 84.9 80.0 - 98.0 fL [facility] Mean Corpuscular Hemoglobin 25.4(L) 27.0 - 33.0 pg [facility] Mean Corpuscular HGB Conc 29.9(L) 31.0 - 35.0 g/dl [facility] Red Cell Distribution Width 14.5 11.0 - 16.0 % [facility] Platelet Count 278 160 - 400 X10*3/uL [facility] Mean Platelet Volume 9.7 9.4 - 12.3 fL [facility] Neutrophils Percent Auto 64.8 45 - 73 % [facility] Imm Gran Pct Auto 0.2 0.0 - 0.4 % [facility] Lymphocytes Percent Auto 24.6 20 - 40 % [facility] Monocytes Percent Auto 7.8 2 - 11 % [facility] Eosinophils Percent Auto 2.2 0 - 4 % [facility] Basophils Percent Auto 0.4 0 - 2 % [facility] NRBC Pct Auto 0.0 0.0 - 0.2 /100WBC [facility] Neutrophils Absolute Auto 3.5 2.0 - 8.3 x10*3/uL [facility] Imm Gran Abs Auto 0.01 0.00 - 0.03 X10*3/uL [facility] Lymphocytes Absolute Auto 1.3 1.2 - 4.9 X10*3/uL [facility] Monocytes Absolute Auto 0.4 0.1 - 1.2 X10*3/uL [facility] Eosinophils Absolute Auto 0.1 0.0 - 0.4 X10*3/uL [facility] Basophils Absolute Auto 0.0 0.0 - 0.2 X10*3/uL [facility] NRBC Abs Auto 0.000 0.0 - 0.012 X10*3/uL [facility] 01/26/2025 2:40 PM EDT 01/26/2025 2:54 PM EDT Generic External Data Provider LAB BLOOD ORDERAB LES Final Result Performing Organization Address [facility] de Phone Number [facility] [address] [place] [phone] * Partial Thromboplastin Time, Activated (APTT) (01/26/2025 2:40 PM EDT) Partial Thromboplastin Time 31.5 26.7 - 34.1 SEC [facility] 01/26/2025 2:40 PM EDT 01/26/2025 2:54 PM EDT Generic External Data Provider LAB BLOOD ORDERAB LES Final Result Performing Organization Address [facility] de Phone Number [facility] [address] [place] [phone] * Prothrombin Time-INR (01/26/2025 2:40 PM EDT) Prothrombin Time 11.5 10.9 - 12.4 SEC [facility] INTERNATIONAL NORM RATIO 1.0 0.9 - 1.1 [facility] Comment:INTERNATIONAL NORMAL IZED RATIO (INR) REFERENCE [...] ORDERAB LES Final Result Performing Organization Address City/[facility]/ZIP Co de Phone Number [facility] [address] [place] [phone] * hCG, Total, Quantitative (01/26/2025 2:40 PM EDT) [facility] HCG Quantitative <2 mIU/mL [facility] Comment:Weeks post LMP Appro ximate hCG(Last Menstrual Period) Range (mIU/ml)3 - 4 weeks 9 - 1304 - 5 weeks 75 - 2,6005 - 6 weeks 850 - 20,8006 - 7 weeks 4000 - 100,2007 - 12 weeks 11,500 - 289,73323 - 16 weeks 18,300 - 137,71198 - 29 weeks (2nd trimester) 1,400 - 53,40394 - 41 weeks (3rd trimester) 940 - [...] Performing Organization Address [facility]/ZIP Co de Phone Number [facility] [address] [place] [phone] * Magnesium (01/26/2025 2:40 PM EDT) Magnesium 2.1 1.6 - 2.6 mg/dL [facility] 01/26/2025 2:40 PM EDT 01/26/2025 2:54 PM EDT us Generic External Data Provider LAB BLOOD ORDERAB LES Final Result [facility] [address], [place] [phone] * (ABNORMAL) Comprehensive Metabolic Panel (01/26/2025 2:40 PM EDT) Pathologist [facility] Sodium 142 135 - 145 mmol/L [facility] Potassium 3.5 3.3 - 5.1 mmol/L [facility] Chloride 109(H) 96 - 108 mmol/L [facility] Carbon Dioxide 28 22 - 29 mmol/L [facility] Anion Gap 9(L) 12 - 20 [facility] Urea Nitrogen (BUN) 9 9 - 16 mg/dL [facility] Creatinine, Serum 0.63 0.5 - 1.4 mg/dL [facility] Creatinine Clr Calc Pharmacy 107.4 [facility] Comment:Provided height and weight: 162.56 cm,49.442 kg.eGFR (calculated from the MDRD study equation) and eCrCl(calculated from the Cockcroft-Gault equation) are based ondifferent parameters and may not yield comparable results.If eCrCl result is absurd, please check patient'sheight/weight. Estimated Glomerular Filt Rate >60 [facility] Comment:Chronic Kidney Disea se: Estimated GFR < 60 mL/min/1.65l3Uwurnm Kidney Disease: Estimated GFR < 15 mL/min/1.73m2 Glucose 113 60 - 115 mg/dL [facility] Calcium 8.9 8.4 - 10.2 mg/dL [facility] Bilirubin, Total 0.4 0.0 - 1.0 mg/dL [facility] Aspartate Amino Transferase 19 5 - 31 U/L [facility] Alanine Aminotransferase 17 0 - 31 U/L [facility] Total Protein 7.2 6.5 - 8.0 g/dL [facility] Albumin Level 4.6 3.5 - 5.0 g/dL [facility] Alkaline Phosphatase 58 39 - 117 U/L [facility] 01/26/2025 2:40 PM EDT 01/26/2025 2:54 PM EDT us Generic External Data Provider LAB BLOOD ORDERAB LES Final Result Performing Organization Address City/[facility]/ZIP Co de Phone Number [facility] [address] [place] [phone] * Hepatitis C Antibody (05/16/2020 9:50 AM EST) Hepatitis C Antibody Nonreactive Nonreactive [facility] Comment: Antibodies to HCV not detected; does not exclude early acute HCV infection. HIV AB/AG Nonreactive Nonreactive [facility] Comment: HIV-1 p24 Ag and/or [...] of detection of this assay. The Mcelroy [employer] [facility] [place] HIV Ag/Ab Combo assay result and supplemental assay results should be interpreted in conjunction with the patient's clinical presentation, history and other laboratory results. If the results are inconsistent with clinical evidence, additional testing is suggested to confirm the result. Hepatitis B Surface Antigen Negative Negative [facility] 05/16/2020 9:50 AM EST Historical Provider HISTORICAL/NON ORDERABLE LABS Final Result Performing Organization Address City/[facility]/ZIP Co de Phone Number [facility] [address] from Last 3 Months or Most Recently Relevant to Health Maintenance Insurance [facility] C[facility] Care Teams Buzzle Buffer Relationship Specialty Start Date End Date Sirena Burger DO [address] [place] [phone] PCP - General Family Medicine 01/20/24 Chato Leary 01/27/25
--- OUTSIDE RECORDS SUMMARY | 2025-03-03 16:39 | XMS_ITS ---
Demographics Address [address] [place] [address] Mobile Phone Home Phone Email Address Email Address Preferred Language en Marital Status Single Shinto Affiliation Unknown Race Other Race Ethnic Group Unknown Author Organization [employer] Address [address] [place] [address] [address] [place] [address] Care Team Providers Care Printing Specialist Name Role Phone Sirena Burger DO Primary Care Provider Chato Leary Unavailable C3 CM Maternal [place] Advocate Status:Enrolled (Active) Start date:01/27/2025 Enrollment date:02/20/2025 Enrollment reason:ADT Feed Overview HRM ED- Pt went to [facility] ED on 01/26/25. Case Team Name Relationship Phone Chato Leary(Responsible Staff) [phone] Continued Care and Services Coordination
--- OUTSIDE RECORDS SUMMARY | 2025-03-03 16:39 | XMS_ITS | Clinical Summary ---
Author Organization [employer] [facility] ity Address [address] [place] [address] Care Team Providers Care Neurology Specialist Name Role Phone Unavailable Primary Care Provider Unavailabl e Allergies Active Allergy Reactions Criticality Noted Date Comments Angel 03/02/2025 Shellfish Derived 03/02/2025 Encounters Date Type Department Care Team Description 03/02/2025 8:40 PM EST - 03/03/2025 1:26 AM EST Emergency [facility] Emergency [address] [place] [address] Discharge Disposition: Home or Self [...]
== END 2025-03-03 13:24 | disposition home or self-care (01) ==
LOC: HO.HWS 12:49
PROVIDERS: PCP Family Medicine; Visit Provider Advanced Practice Midwife
DX: Z01.419 Encounter for gynecological examination (general) (routine) without abnormal findings (principal); Z12.39 Encounter for other screening for malignant neoplasm of breast; Z12.4 Encounter for screening for malignant neoplasm of cervix; Z11.3 Encounter for screening for infections with a predominantly sexual mode of transmission
CPT/HCPCS: 99395; 99459

== ENCOUNTER 2025-03-03 13:28 | Outpatient (REF) | payer MEDICAID, SELFPAY ==
[2025-03-04 01:57] LABS: Bacterial Vaginosis PCR NEGATIVE (Negative); Candida Group PCR NOT DETECTED (Not Detect); Candida glab krusei PCR NOT DETECTED (Not Detect); Trichomonas vaginalis PCR NOT DETECTED (Not Detect)
[2025-03-04 02:29] LABS: CT PCR NOT DETECTED (Not Detect.); NG PCR NOT DETECTED (Not Detect.)
== END 2025-03-03 13:29 | disposition home or self-care (01) ==
LOC: HO.LNP 13:28
PROVIDERS: Visit Provider Advanced Practice Midwife
DX: Z01.419 Encounter for gynecological examination (general) (routine) without abnormal findings (principal); Z20.2 Contact with and (suspected) exposure to infections with a predominantly sexual mode of transmission
CPT/HCPCS: 81515; 87491; 87591; 88175